=== PATIENT | male | born 1945 | race Caucasian/White ===

== ENCOUNTER 2019-01-10 12:22 | Inpatient (IN) | payer MEDICARE, OTHER ==
[~2019-01-10] VITALS: Ht 180.3 cm; Wt 83.9 kg
[~2019-01-10 12:22] MED LIST: ALBU90OI6 INH; ARFORMOTEROL; ASPI81EC PO; ATOR40TA PO; Aspirin EC81 MG PO; CLON.1 PO; CLOP75 PO; FLUSAL2505 INH; GLIP2.5ER PO; HYDACE5 PO; LISI5 PO; LOSA25 PO; LOVA40 PO; METF500 PO; METO50 PO; Omeprazole20 M1 PO; RANI150 PO; TIOT18 IH; VERAPAMIL ER120 MG PO; [UNRECOGNIZED DRUG - REMARK]
[2019-01-10 13:20] LABS: BASOPHILS ABSOLUTE AUTO 0.02 K/mm3 (0.00-0.23); BASOPHILS PERCENT AUTO 0 % (0-2); EOSINOPHILS ABSOLUTE AUTO 0.08 K/mm3 (0.00-0.68); EOSINOPHILS PERCENT AUTO 2 % (0-6); Hematocrit 40.3 % (37.0-53.0); IMMATURE GRAN ABSOLUTE AUTO 0.03 K/mm3 (0.00-0.10); IMMATURE GRAN PERCENT AUTO 1 % (0-1); LYMPHOCYTES ABSOLUTE AUTO 1.13 K/mm3 (0.84-5.20); LYMPHOCYTES PERCENT AUTO 21 % (21-46); MONOCYTES ABSOLUTE AUTO 0.55 K/mm3 (0.16-1.47); MONOCYTES PERCENT AUTO 10 % (4-13); Mean Corpuscular HGB Conc 32.3 g/dL (31.5-36.5); Mean Corpuscular Volume 96 fL (80-100); Mean Platelet Volume 11.3 fL (9.1-12.4); NEUTROPHILS ABSOLUTE AUTO 3.56 K/mm3 (1.96-9.15); NEUTROPHILS PERCENT AUTO 66 % (41-73); Platelet Count 213 K/mm3 (150-400); RDW Standard Deviation 52.9 fL (35.1-46.3); White Blood Cell Count 5.37 K/mm3 (4.00-11.30)
[2019-01-10 13:34] LABS: Albumin, Blood 3.4 g/dL (3.4-5.0); Albumin/Globulin Ratio 0.8 (0.8-1.8); Bilirubin, Total 0.3 mg/dL (0.1-1.0); Bun/Creatinine Ratio 17.1 (12.0-20.0); Calcium, Blood 9.2 mg/dL (8.5-10.1); Creatinine, Blood 1.29 mg/dL (0.60-1.20); Globulin, Blood 4.2 g/dL (2.2-4.0); Potassium, Blood 4.1 mmol/L (3.5-5.5); Total Protein, Blood 7.6 g/dL (6.4-8.2)
[2019-01-10 15:53] LABS: Source, Urine Clean Catch
[2019-01-10 15:58] LABS: Bilirubin, Urine Neg (Neg); Blood, Urine Neg (Neg); Glucose Qualitative, Urine Neg (Neg); Ketones, Urine Neg (Neg); Leukocyte Esterase, Urine Neg (Neg); Nitrite, Urine Neg (Neg); Protein, Urine 2+ (Neg); Urobilinogen, Urine NORM (Normal)
[2019-01-10 16:05] LABS: Appearance, Urine Clear (Clear); Color, Urine Yellow (P-Yellow)
[2019-01-10 16:06] LABS: Bacteria Few /hpf; Red Blood Cells, Urine 0-2 /hpf (0-2); Squamous Epithelial Cells Not Seen /hpf (Few); White Blood Cells, Urine 0-2 /hpf (0-5)
[2019-01-10] MEDS ORDERED: Afrin15 ML (16:43)
[2019-01-10] MEDS ORDERED: MONT10T PO (16:44)
[2019-01-10] MEDS ORDERED: TAMS.4ER PO (16:44)
[2019-01-10] MEDS ORDERED: OMEPRAZOLE20 MG PO (16:44)
[2019-01-10] MEDS ORDERED: Hytrin2 MG PO (16:45)
[2019-01-10] MEDS ORDERED: VERA120 PO (16:46)
[2019-01-10] MEDS ORDERED: LIRA0.6P SC (16:46)
[2019-01-10] MEDS ORDERED: Amlodipine Bes2.5 MG PO (16:46)
[2019-01-10] MEDS ORDERED: METO50 PO (16:47)
[2019-01-10] MEDS ORDERED: Amaryl4 MG PO (16:47)
[2019-01-10] MEDS ORDERED: Lipitor80 MG PO (16:47)
--- NOTE | 2019-01-10 18:44 | NUR ---
SUMMARY/NEW ER ADMIT PT IS A/O X4, PLEASANT/COOPERATIVE AFFECT. DX POSS STROKE, HE STATE NUMBNESS R SIDE OF BODY FROM HEAD TO TOES. STATE NO OTHER DEFICITS. SPEECH NORMAL. 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 VICTOR MANUEL. HE IS ABLE TO STAND & AMBULATE TO BED, GAIT STEADY. VSS. CT HEAD NEGATIVE FOR ACUTE CVA HOWEVER SHOWS OLD INFARCT, PT STATE UNAWARE OF PREVIOUS STROKE. STATE HX CARDIAC STENTS, ON PLAVIX MULT YRS.
--- NOTE | 2019-01-11 05:52 | NUR ---
ETCH OPERATOR SEMICONDUCTOR WAFERS SUMMARY NO ACUTE CHANGES THIS SHIFT. PT AAOX4 AND PLEASANT. PT DENIES ANY FURTHUR SYMPTOMS ASIDE FROM THE R SIDED NUMBNESS. PT HAS EQUAL STRENGTH IN ARMS AND LEGS. DENIES PAIN, SOB, N/V. PT HAS RESTED MOST OF THE SHIFT. VSS, WILL CONTINUE TO MONITOR.
--- NOTE | 2019-01-11 11:57 | NUR ---
Echocardiogram using 9.0ml of agitated saline contrast performed.
[2019-01-11] MEDS ORDERED: NITR.4SL SL (13:18)
[2019-01-11] MEDS ORDERED: Flonase 0.05% N16 GM (13:36)
[2019-01-11] MEDS ORDERED: TRELEGY ELLIPT1 EACH INH (13:36)
--- NOTE | 2019-01-11 19:00 | NUR ---
SUMMARY PT IS A/O X4, PLEASANT/COOPERATIVE AFFECT. MRI THIS AM CONFIRM CVA, DR REY IN TO EXPLAIN TO PT/ THIS AM. PT STATE CONTINUING R SIDED NUMBNESS HEAD TO TOE. NO OTHER DEFICITS NOTED. ORIENTAL RUG STRETCHER/DORSIFLEX STRONG/= T/O DAY. VICTOR MANUEL. SPEECH CLEAR. HE IS IND IN ROOM. DR REY INFORM PT CVA MAY BE R/T HTN, ADD LISINOPRIL, STATE POSSIBLE D/C HOME IN AM.
--- NOTE | 2019-01-12 04:51 | NUR ---
SHIFT SUMMARY PT SLEPT WELL THROUGH MUCH OF THE NIGHT. AMBULATES INDEPENDENTLY IN THE ROOM. STEADY ON HIS FEET. PT CONTINUES TO HAVE NUMBNESS TO ENTIRE RIGHT SIDE OF BODY BUT NO OTHER DEFICITS. NO COMPLAINTS OF PAIN. VITAL SIGNS STABLE. NO ACUTE CHANGES THIS EVENING. WILL CONTINUE TO MONITOR.
[2019-01-12 05:24] LABS: Bun/Creatinine Ratio 21.2 (12.0-20.0); Calcium, Blood 9.4 mg/dL (8.5-10.1); Creatinine, Blood 1.46 mg/dL (0.60-1.20); Potassium, Blood 4.3 mmol/L (3.5-5.5)
[2019-01-12] MEDS ORDERED: DEEP SEA44 ML (13:01)
--- NOTE | 2019-01-12 14:21 | NUR ---
Upon receiving an admit referral, I visit patient. 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 Patient then tells me some of the many questions he has about God and congregational and explains that these are the reasons that he doesn't believe in any one congregational. He does admit to believing that there is some sort of God or gods that is bigger than us. I listen empathically, conduct a life review and provide companionship. Patient responds well and voices appreciation for the visit.
--- NOTE | 2019-01-12 14:30 | NUR ---
DISCHARGE NOTE PT DISCHARGED VIA W/C ESCORTED BY VOLUNTEER TO POV WITH TO HOME. PT VERBALIZED UNDERSTANDING OF FOLLOWING UP WITH WHOLESALE AGRONOMIST AND PCP AND TAKING ALL MEDICATIONS PRESCRIBED. IV DISCONTINUED INTACT AND ALL BELONGINGS SENT HOME WITH PATIENT. PT ENCOURGED TO SEEK EMERGENCY MEDICAL ATTENTION IF STROKE LIKE SYMPTOMS RETURN. EDUCATIONAL MATERIALS PROVIDED.
== END 2019-01-12 14:34 | disposition home or self-care (01) | DRG 65 ==
LOC: ER 12:22 → MEDS 12:23 → ENPENDDIS 01-12 12:45 → MEDS 01-12 14:34
PROVIDERS: Physician Assistant; ADMIT Hospitalist
DX: I63.81 Other cerebral infarction due to occlusion or stenosis of small artery (principal); G81.91 Hemiplegia, unspecified affecting right dominant side; I10 Essential (primary) hypertension; E11.9 Type 2 diabetes mellitus without complications; I25.10 Atherosclerotic heart disease of native coronary artery without angina pectoris; E78.5 Hyperlipidemia, unspecified; J44.9 Chronic obstructive pulmonary disease, unspecified; Z66 Do not resuscitate; Z87.891 Personal history of nicotine dependence; Z95.5 Presence of coronary angioplasty implant and graft; Z85.118 Personal history of other malignant neoplasm of bronchus and lung; Z79.84 Long term (current) use of oral hypoglycemic drugs; Z79.02 Long term (current) use of antithrombotics/antiplatelets; Z79.51 Long term (current) use of inhaled steroids; Z79.899 Other long term (current) drug therapy
CPT/HCPCS: 36415; 70450; 70496; 70498; 70551; 80048; 80053; 81001; 82947; 85025; 93005; 93010; 93306; 94760; 97162; 97530; 99285-25; J1650; Q9967

== ENCOUNTER → 2021-12-31 | Outpatient (CLI) | payer MEDICARE, OTHER ==
[~2021-12-31] MED LIST changes: +Afrin15 ML; +Amaryl4 MG PO; +Amlodipine Bes2.5 MG PO; +DEEP SEA44 ML; +Flonase 0.05% N16 GM; +Hytrin2 MG PO; +LIRA0.6P SC; +Lipitor80 MG PO; +MONT10T PO; +NITR.4SL SL; +OMEPRAZOLE20 MG PO; +TAMS.4ER PO; +TRELEGY ELLIPT1 EACH INH; +VERA120 PO
[2021-12-31 13:54] LABS: BASOPHILS ABSOLUTE AUTO 0.01 K/mm3 (0.00-0.23); BASOPHILS PERCENT AUTO 0 % (0-2); EOSINOPHILS ABSOLUTE AUTO 0.03 K/mm3 (0.00-0.68); EOSINOPHILS PERCENT AUTO 0 % (0-6); Hematocrit 30.6 % (37.0-53.0); Hemoglobin 9.7 g/dL (13.5-17.5); IMMATURE GRAN ABSOLUTE AUTO 0.03 K/mm3 (0.00-0.10); IMMATURE GRAN PERCENT AUTO 0 % (0-1); LYMPHOCYTES ABSOLUTE AUTO 0.74 K/mm3 (0.84-5.20); LYMPHOCYTES PERCENT AUTO 11 % (21-46); MONOCYTES ABSOLUTE AUTO 0.66 K/mm3 (0.16-1.47); MONOCYTES PERCENT AUTO 10 % (4-13); Mean Corpuscular HGB 30.8 pg (26.0-34.0); Mean Corpuscular HGB Conc 31.7 g/dL (31.5-36.5); Mean Corpuscular Volume 97 fL (80-100); Mean Platelet Volume 11.8 fL (9.1-12.4); NEUTROPHILS ABSOLUTE AUTO 5.29 K/mm3 (1.96-9.15); NEUTROPHILS PERCENT AUTO 78 % (41-73); Platelet Count 223 K/mm3 (150-400); RDW Standard Deviation 57.1 fL (35.1-46.3); Red Blood Cell Count 3.15 M/mm3 (4.30-5.90); White Blood Cell Count 6.76 K/mm3 (4.00-11.30)
[2021-12-31 13:59] LABS: Bun/Creatinine Ratio 15.6 (12.0-20.0); Calcium, Blood 9.3 mg/dL (8.5-10.1); Creatinine, Blood 1.22 mg/dL (0.60-1.20); Potassium, Blood 4.6 mmol/L (3.5-5.5)
== END ==
LOC: LAB SHORT 13:44 → LAB 13:44
PROVIDERS: Family Medicine
DX: R07.9 Chest pain, unspecified (principal)
CPT/HCPCS: 80048; 84484; 85025; 85379

== ENCOUNTER 2022-03-31 11:09 | Inpatient (IN) | payer MEDICARE ==
[~2022-03-31] VITALS: Ht 180.3 cm; Wt 68.6 kg
[2022-03-31 11:45] LABS: BASOPHILS ABSOLUTE AUTO 0.01 K/mm3 (0.00-0.23); BASOPHILS PERCENT AUTO 0 % (0-2); EOSINOPHILS ABSOLUTE AUTO 0.08 K/mm3 (0.00-0.68); EOSINOPHILS PERCENT AUTO 2 % (0-6); Hematocrit 29.7 % (37.0-53.0); Hemoglobin 9.5 g/dL (13.5-17.5); IMMATURE GRAN ABSOLUTE AUTO 0.02 K/mm3 (0.00-0.10); IMMATURE GRAN PERCENT AUTO 0 % (0-1); LYMPHOCYTES ABSOLUTE AUTO 0.96 K/mm3 (0.84-5.20); LYMPHOCYTES PERCENT AUTO 18 % (21-46); MONOCYTES ABSOLUTE AUTO 0.54 K/mm3 (0.16-1.47); MONOCYTES PERCENT AUTO 10 % (4-13); Mean Corpuscular HGB 31.5 pg (26.0-34.0); Mean Corpuscular Volume 98 fL (80-100); Mean Platelet Volume 11.1 fL (9.1-12.4); NEUTROPHILS PERCENT AUTO 69 % (41-73); Platelet Count 248 K/mm3 (150-400); RDW Coefficient Variation 15.5 % (11.7-14.2); Red Blood Cell Count 3.02 M/mm3 (4.30-5.90); White Blood Cell Count 5.21 K/mm3 (4.00-11.30)
[2022-03-31 12:07] LABS: Albumin, Blood 2.7 g/dL (3.4-5.0); Albumin/Globulin Ratio 0.7 (0.8-1.8); Bilirubin, Total 0.2 mg/dL (0.1-1.0); Bun/Creatinine Ratio 15.2 (12.0-20.0); Calcium, Blood 9.3 mg/dL (8.5-10.1); Creatinine, Blood 1.38 mg/dL (0.60-1.20); Globulin, Blood 3.9 g/dL (2.2-4.0); Potassium, Blood 4.4 mmol/L (3.5-5.5); Total Protein, Blood 6.6 g/dL (6.4-8.2)
[2022-03-31] MEDS ORDERED: TERA5 PO (13:46)
[2022-03-31] MEDS ORDERED: GLIM4 PO (13:47)
[2022-03-31] MEDS ORDERED: Crestor20 MG PO (13:48)
[2022-03-31] MEDS ORDERED: TRAM50 PO (13:49)
[2022-03-31] MEDS ORDERED: Carvedilol12.5 MG PO (13:49)
--- NOTE | 2022-03-31 18:28 | NUR ---
SHIFT SUMMARY PT ARRIVED TO ICU AT 1601 FROM ER AFTER 3 DAYS OF RIGHT SIDED WEAKNESS. NEURO: A/O X4, HARD OF HEARING, LEFT HEARING AID IN PLACE. RIGHT ICE MAKER SLIGHLY WEAKER THAN LEFT, NO FACIAL DROOP, NO TONGUE DEVIATION, VISUAL LAINEZ X4 INTACT, LEG STRENGTH EQUAL. CT AND MRI COMPLETED, MD NOTIFIED. CARDIAC: SR-ST 95-105, BP ELEVATED, PRN HYDRALIZINE PO AND SCHEDULED COREG PO GIVEN, BP REMAINS ELEVATED, NICARDIPINE DRIP STARTED AT 2.5MG/HR. RESP: ROOM AIR TO MAINTAIN O2 SAT > 90%, PT HAS HISTORY OF COPD, LUNGS CLEAR/DIMINISHED BASES WITH OCCASIONAL LOOSE COUGH. RESPIRATORY THERAPY NOTIFIED OF PT REQUESTING DAILY INHAILERS AND BREATHING TREATMENT. USES ALBUTEROL NEBS TID AT HOME. GI: ADA DIET ORDERED, TRAY REQUESTED. PT SWALLOWING WITHOUT DIFFICULTY. STATES LAST BM YESTERDAY. BLOOD GLUCOSE 71, MILK GIVEN. : VOIDS USING URINAL. URINE YELLOW, NO SEDIMENT NOTED. SKIN: INTACT, BLANCHABLE REDNESS TO COCCYX. IV: PIV X1 LEFT AC, FLUSHES WELL, NICARDIPINE INFUSING. PT STATES DURING ADMIT THAT HE WISHES TO BE A FULL CODE, HE HAD PREVIOUSLY BEEN LISTED DNR. MD NOTIFIED, ORDER RECIEVED TO CHANGE CODE STATUS TO FULL. PT/INR ORDERED BY FOR NOW. NIECE AT BEDSIDE, UPDATED ON POC AND ALL QUESTIONS ANSWERED. PT'S TO VISIT IN AM.
[2022-03-31 20:34] LABS: International Normalized Ratio 1.07; Prothrombin Time Results 11.2 Sec (9.7-11.5)
--- NOTE | 2022-03-31 20:54 | NUR ---
1900 SHIFT CHANGE Received report and assumed pt care. Patient is AOX4, resting in bed and declines pain or discomfort. Wheezing audible bilateral lungs, and RT notified to administer a breathing treatment. Able to reposition in bed independently, was undressed from home clothes and dressed in gown. He had x1 episode of urine incontinence, urinal oddered and voided 350ml. Coagulation Lab panel collected and sent to lab. Will continue to monitor patient
[2022-04-01 03:42] LABS: Hematocrit 27.1 % (37.0-53.0); Mean Corpuscular HGB 31.7 pg (26.0-34.0); Mean Corpuscular HGB Conc 33.2 g/dL (31.5-36.5); Mean Corpuscular Volume 95 fL (80-100); Mean Platelet Volume 11.2 fL (9.1-12.4); Platelet Count 213 K/mm3 (150-400); RDW Coefficient Variation 15.2 % (11.7-14.2); RDW Standard Deviation 53.4 fL (35.1-46.3); Red Blood Cell Count 2.84 M/mm3 (4.30-5.90); White Blood Cell Count 4.73 K/mm3 (4.00-11.30)
[2022-04-01 04:09] LABS: Bun/Creatinine Ratio 16.5 (12.0-20.0); Calcium, Blood 9.3 mg/dL (8.5-10.1); Creatinine, Blood 1.33 mg/dL (0.60-1.20)
--- NOTE | 2022-04-01 06:41 | NUR ---
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 He is able to transfer out of bed with stand-by assist, steady gait and use of all his extremities. Continues on Nicardipine at 3.5mg/hr, gtt was turned off for 2hrs between 1am-3am after reaching parameters SBP<120. GROCERY CHECKER at shift change is 138/48 (72). Urine output over 2000ml this shift, no bowel movement.
--- NOTE | 2022-04-01 10:31 | NUR ---
Pt resting in bed with his eyes closed. Pt left undisturbed at this time. Spoke with Primary RN Natan and reviewed plan of care. Pt doing ok off pressors at this time. Pt does not appear to have any defecits from this stroke. Current defecits are baseline from previous stroke. Palliative Care will F/U at a later time for AD/POLST discussion.
--- NOTE | 2022-04-01 12:43 | NUR ---
Spiritual Care visit. Pt. is awake in bed and welcomes my visit. Pt. is pleasant but denies that he is a man of cr. Through theraputic listening and rapport establishment Pt. displays evidence of trust and engagement. Facilitated a life review. Pts. daughter in [place] is on her way and should be at bedside this afternoon. Pt. verbalizes expectation to be discharged tomorrow as well as gratitude for the spiritual care visit.
--- NOTE | 2022-04-01 16:33 | NUR ---
Pt BGL 67 treated w/ orange juice x2. Will recheck shortly. Pt has no complaints at this time.
--- NOTE | 2022-04-01 17:59 | NUR ---
Called Dr. Avila and advised pt systolic was >150 even after PRN PO meds. He advised to restart Cardene gtt until tomorrow and to readdress PO BP meds.
--- NOTE | 2022-04-01 18:57 | NUR ---
RN assumed care for pt at 1600. Ended up restarting Cardene gtt towards the end of the shift due to systolic >140; Dr. Avila is aware, placed pt back onto ICU status.
--- NOTE | 2022-04-01 19:00 | NUR ---
ASSUMPTION OF CARE PT A&OX4, PARTICIPATES IN CONVERSATION AND CARE. CURRENTLY WATCHING TV AND DENIES NEEDS. NICARDIPINE 5MG/HR INFUSING AT THIS TIME. BED IN LOW POSITION AND CALL LIGHT WITHIN REACH.
[2022-04-02 03:45] LABS: BASOPHILS ABSOLUTE AUTO 0.02 K/mm3 (0.00-0.23); BASOPHILS PERCENT AUTO 0 % (0-2); EOSINOPHILS PERCENT AUTO 2 % (0-6); Hematocrit 29.4 % (37.0-53.0); Hemoglobin 9.6 g/dL (13.5-17.5); IMMATURE GRAN ABSOLUTE AUTO 0.01 K/mm3 (0.00-0.10); IMMATURE GRAN PERCENT AUTO 0 % (0-1); LYMPHOCYTES ABSOLUTE AUTO 1.27 K/mm3 (0.84-5.20); LYMPHOCYTES PERCENT AUTO 21 % (21-46); MONOCYTES ABSOLUTE AUTO 0.67 K/mm3 (0.16-1.47); MONOCYTES PERCENT AUTO 11 % (4-13); Mean Corpuscular HGB 31.6 pg (26.0-34.0); Mean Corpuscular HGB Conc 32.7 g/dL (31.5-36.5); Mean Corpuscular Volume 97 fL (80-100); Mean Platelet Volume 11.5 fL (9.1-12.4); NEUTROPHILS ABSOLUTE AUTO 3.97 K/mm3 (1.96-9.15); NEUTROPHILS PERCENT AUTO 66 % (41-73); Platelet Count 221 K/mm3 (150-400); RDW Coefficient Variation 15.3 % (11.7-14.2); RDW Standard Deviation 53.4 fL (35.1-46.3); Red Blood Cell Count 3.04 M/mm3 (4.30-5.90); White Blood Cell Count 6.04 K/mm3 (4.00-11.30)
[2022-04-02 04:03] LABS: Bun/Creatinine Ratio 25.8 (12.0-20.0); Calcium, Blood 9.3 mg/dL (8.5-10.1); Creatinine, Blood 1.24 mg/dL (0.60-1.20); Potassium, Blood 4.7 mmol/L (3.5-5.5)
--- NOTE | 2022-04-02 06:19 | NUR ---
SHIFT SUMMARY PT ARRIVED FROM ED, HYPOTHERMIC, TACHYCARDIC, AND HYPOTENSIVE, MAXED ON LEVO. ADDED VASOPRESSIN WITHOUT IMPROVEMENT IN BP. HOSPITALIST NOTIFIED, ERI ADDED. MAPS 60-62 FOR MAJORITY OF SHIFT. CURRENTLY, LEVO @ 30MCG/MIN; VASO @ 0.04U/MIN; ERI @ 300MCG/MIN. LAST BP 113/44 MAP 65. PT REMAINS MINIMALLY RESPONSIVE; NONVERBAL. UNABLE TO FOLLOW COMMANDS. OLIGURIC. WARMED WITH CARLEY HUGGER OVERNIGHT; CURRENTLY NORMOTHERMIC WITH CARLEY HUGGER STILL IN USE.
--- NOTE | 2022-04-02 06:35 | NUR ---
SHIFT SUMMARY PT A/O X4. NEURO ASSESSMENT RETURNED TO BASELINE. CARDENE WEANED OFF FOR SHORT PERIOD WHEN SLEEPING, BUT REQUIRED RESTART. CURRENTLY AT 7.5MCG/MIN.
--- NOTE | 2022-04-02 07:15 | NUR ---
Assumed care of pt at 0700. Report received from Marylin SMILEY. Nicardipine at 7.5 mg/hr. BP within parameter. Pt A&O x 4. Answers questions, follows commands, verbalizes needs.
[2022-04-02 08:17] LABS: CHOL/HDL RATIO 3.4; Cholesterol 122 mg/dL (50-200); HDL Cholesterol 36 mg/dL (>39); Low Density Lipoprotein Chol 72 mg/dL (0-110); Triglycerides 70 mg/dL (30-160); Very Low Density Lipoprot Chol 14 mg/dL (6-32)
--- NOTE | 2022-04-02 10:30 | NUR ---
Dr Crump to see pt. Discussed that pt is off nicardipine drip. Provider states plan for continued monitoring and pt may transfer to medical floor later this afternoon.
--- NOTE | 2022-04-02 12:42 | NUR ---
Pt resting in bed and is A&OX4. Pt denies pain, anxiety, and nausea. Mild conversational dyspnea noted. Offered therapeutic listening as Pt reports living at home with his spouse and other family members. He reports having 2 adult daughters, and 2 adult sons. He reports family is supportive. Pt reports ability to get around the house and states he does most of the shopping. 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 Engaged in gentle discussion regarding code status wishes. Educated on life sustaining treatments including risk factors and implications of CPR. Pt reports wishes are DNR. Spoke with Dr Crump and discussed case. Placed order for DNR per V/O from Dr Crump. Palliative Care will remain available
--- NOTE | 2022-04-02 17:23 | NUR ---
SUMMARY Pt has been transferred to room 308 at 1600. Pt transferred by bed, accompanied by ADILSON Olivas. Chart, medications, belongings transferred with patient. Assessment at time of ICU departure is as follows. Neuro/Psych: A&O x 4. Answers questions, follows commands, verbalizes needs. Forgetful with education provided but is receptive with repetition and reinforcement. Pt updates his family/friends using personal cellphone. Musc/ADLs: Worked with PT/OT today. Tolerated activity well. Performs all in-bed ADLs independently. Refused shower or bedbath today. Resp: SpO2 90% or greater RA. Cardiac: SR per monitor. BP stable. Nicardipine off this morning. GI: No BM this shift. Excellent appetite. Tolerating prescribed diet well, without signs of aspiration. : Good urine output. Voids independently into urinal. Skin: Unchanged from inital assessment.
--- NOTE | 2022-04-02 17:39 | NUR ---
Received report from BALJIT Valdez. Pt being transfer from ICU. AXOX3-4. Pt ambulates with 1 assist. Received pt with all belongings. Pt able to walk with standby assist. Pt made aware on how to use call light and ask for assistance.
--- NOTE | 2022-04-02 19:10 | NUR ---
Report handoff given to nurse.
--- NOTE | 2022-04-03 03:57 | NUR ---
SHIFT UNREMARKABLE. PATIENT HAS DENIED ANY PAIN OVER COURSE OF SHIFT AND HAS SLEPT THROUGH MOST OF SHIFT. PATIENT COMPLAINED TWICE OF "STUFFY NOSE" AND REQUESTED SOMETHING TO ALLEVIATE DISCOMFORT. HOSPITALIST ORDERED FLONASE FOR TREATMENT. SHIFT OTHERWISE NOT NOTEWORTHY. CALL LIGHT LEFT WITHIN REACH.
[2022-04-03 04:51] LABS: Hematocrit 30.3 % (37.0-53.0); Hemoglobin 9.6 g/dL (13.5-17.5); Mean Corpuscular HGB 31.4 pg (26.0-34.0); Mean Corpuscular HGB Conc 31.7 g/dL (31.5-36.5); Mean Corpuscular Volume 99 fL (80-100); Mean Platelet Volume 10.9 fL (9.1-12.4); Platelet Count 216 K/mm3 (150-400); RDW Coefficient Variation 15.7 % (11.7-14.2); RDW Standard Deviation 55.9 fL (35.1-46.3); Red Blood Cell Count 3.06 M/mm3 (4.30-5.90)
[2022-04-03 05:11] LABS: Albumin, Blood 2.4 g/dL (3.4-5.0); Anion Gap 6 mmol/L (6-16); Blood Urea Nitrogen 40 mg/dL (8-24); Bun/Creatinine Ratio 29.9 (12.0-20.0); CO2, Blood 28 mmol/L (21-32); Calcium, Blood 9.3 mg/dL (8.5-10.1); Chloride, Blood 104 mmol/L (98-108); Creatinine, Blood 1.34 mg/dL (0.60-1.20); Glomerular Filtration Rate 55 (60-); Glucose, Blood 145 mg/dL (70-99); Phosphorus, Blood 3.6 mg/dL (2.5-4.9); Potassium, Blood 4.5 mmol/L (3.5-5.5); Sodium, Blood 138 mmol/L (136-145)
--- NOTE | 2022-04-03 17:57 | NUR ---
Received report from ongoing nurse. Pt axox4. VSS. Will continue to monitor patient.
--- NOTE | 2022-04-03 19:11 | NUR ---
Report given to oncoming nurse.
--- NOTE | 2022-04-04 04:44 | NUR ---
SHIFT SUMMARY; NO ACUTE CHANGES OVERNIGHT. THE PT IS AXO X4 AND A STANBY ASSIST. THE PT RESTED IN BED T/O THE NIGHT AND USED THE BEDSIDE URINAL. PT IS EAGER TO GO HOME. PT KNOWS THE PLAN IS FOR B/P TO BE MORE NORMOTENSIVE, HOWEVER, PT IS HAVING A HARD TIME WAITING TO MEET THIS GOAL IN ORDER TO D/C. CURRENTLY THE PT IS RESTING IN BED WITH THE BED IN THE LOWEST POSITION AND THE CALL LIGHT AT BEDSIDE.
[2022-04-04] MEDS ORDERED: AMLO5 PO (09:59)
[2022-04-04] MEDS ORDERED: Prinivil10 MG PO (10:00)
[2022-04-04] MEDS ORDERED: FLUTICASONE-SA1 EAC2 INH (10:00)
[2022-04-04] MEDS ORDERED: SPIRIVA RESPIMAT4 G3 INH (10:01)
--- NOTE | 2022-04-04 10:53 | NUR ---
Received report from ongoing nurse. Pt axox3. No events over night. Received discharge instructions for patient. Iv removed and telemetry taken off. Daughter at bedside to take pt home.
== END 2022-04-04 11:00 | disposition home or self-care (01) | DRG 65 ==
LOC: ER 11:09 → ICUE 14:35 → ICUW 14:35 → ICUE 16:09 → MEDS 04-02 16:01
PROVIDERS: Internal Medicine; Nurse Practitioner Acute Care; Physician Assistant; Student in an Organized Health Care Education/Training Program; ADMIT Internal Medicine
DX: I63.81 Other cerebral infarction due to occlusion or stenosis of small artery (principal); I69.351 Hemiplegia and hemiparesis following cerebral infarction affecting right dominant side; I65.22 Occlusion and stenosis of left carotid artery; I25.10 Atherosclerotic heart disease of native coronary artery without angina pectoris; J44.9 Chronic obstructive pulmonary disease, unspecified; N18.30 Chronic kidney disease, stage 3 unspecified; Z66 Do not resuscitate; E11.22 Type 2 diabetes mellitus with diabetic chronic kidney disease; D63.1 Anemia in chronic kidney disease; K21.9 Gastro-esophageal reflux disease without esophagitis; E11.59 Type 2 diabetes mellitus with other circulatory complications; I12.9 Hypertensive chronic kidney disease with stage 1 through stage 4 chronic kidney disease, or unspecified chronic kidney disease; E78.00 Pure hypercholesterolemia, unspecified; N40.0 Benign prostatic hyperplasia without lower urinary tract symptoms; R47.81 Slurred speech; Z85.118 Personal history of other malignant neoplasm of bronchus and lung; Z92.21 Personal history of antineoplastic chemotherapy; Z99.81 Dependence on supplemental oxygen; Z95.5 Presence of coronary angioplasty implant and graft; Z92.3 Personal history of irradiation; Z79.899 Other long term (current) drug therapy; Z79.891 Long term (current) use of opiate analgesic; Z86.61 Personal history of infections of the central nervous system; Z98.890 Other specified postprocedural states; Z87.891 Personal history of nicotine dependence
CPT/HCPCS: 36415; 70450; 70551; 80048; 80053; 80061; 80069; 82947; 83036; 85025; 85027; 85610; 85730; 92526; 92610; 93005; 93010; 93306; 93880; 94640; 94664; 94760; 94762; 96374; 97112; 97116; 97161; 97165; 97530; 99285-25; A9270; J7050

== ENCOUNTER 2023-06-27 15:55 | Inpatient (IN) | payer MEDICARE ==
[~2023-06-27] VITALS: Ht 180.3 cm; Wt 62.3 kg
[~2023-06-27 15:55] MED LIST changes: +ALBU90OI INH; +AMLO5 PO; +CARV25 PO; +Crestor20 MG PO; +FLUTICASONE-SA1 EAC2 INH; +GLIM4 PO; +OMEP20ER PO; +OXYM.05NI; +Prinivil10 MG PO; +SPIRIVA RESPIMAT4 G3 INH; +TERA5 PO; +TRAM50 PO; +VERAPAMIL ER120 M1 PO
[2023-06-27 16:18] LABS: BASOPHILS ABSOLUTE AUTO 0.01 K/mm3 (0.00-0.23); BASOPHILS PERCENT AUTO 0 % (0-2); EOSINOPHILS ABSOLUTE AUTO 0.01 K/mm3 (0.00-0.68); EOSINOPHILS PERCENT AUTO 0 % (0-6); Hematocrit 22.8 % (37.0-53.0); IMMATURE GRAN ABSOLUTE AUTO 0.03 K/mm3 (0.00-0.10); IMMATURE GRAN PERCENT AUTO 1 % (0-1); LYMPHOCYTES PERCENT AUTO 8 % (21-46); MONOCYTES ABSOLUTE AUTO 0.53 K/mm3 (0.16-1.47); MONOCYTES PERCENT AUTO 9 % (4-13); Mean Corpuscular HGB 31.3 pg (26.0-34.0); Mean Corpuscular HGB Conc 30.7 g/dL (31.5-36.5); Mean Corpuscular Volume 102 fL (80-100); Mean Platelet Volume 10.9 fL (9.1-12.4); NEUTROPHILS ABSOLUTE AUTO 5.07 K/mm3 (1.96-9.15); NEUTROPHILS PERCENT AUTO 82 % (41-73); Platelet Count 207 K/mm3 (150-400); RDW Coefficient Variation 15.5 % (11.7-14.2); RDW Standard Deviation 57.5 fL (35.1-46.3); Red Blood Cell Count 2.24 M/mm3 (4.30-5.90); White Blood Cell Count 6.15 K/mm3 (4.00-11.30)
[2023-06-27 16:40] LABS: Albumin, Blood 2.3 g/dL (3.4-5.0); Albumin/Globulin Ratio 0.6 (0.8-1.8); Bilirubin, Total 1.1 mg/dL (0.1-1.0); Bun/Creatinine Ratio 13.7 (12.0-20.0); Calcium, Blood 8.6 mg/dL (8.5-10.1); Creatinine, Blood 1.24 mg/dL (0.60-1.20); Globulin, Blood 3.9 g/dL (2.2-4.0); Potassium, Blood 4.4 mmol/L (3.5-5.5); Total Protein, Blood 6.2 g/dL (6.4-8.2)
[2023-06-27 17:31] LABS: Influenza A, PCR NEGATIVE (NEGATIVE); Influenza B, PCR NEGATIVE (NEGATIVE); Resp Syncytial Virus, PCR NEGATIVE (NEGATIVE); SARS-Cov-2 (COVID-19) PCR, MMC POSITIVE (NEGATIVE)
[2023-06-27] MEDS ORDERED: Acetaminophen 325 MG TABLET PO ONE (17:45)
[2023-06-27] MEDS ORDERED: Oxymetazoline 0.05% Nasal Relief Spray 15mL BTL ONE (18:10)
[2023-06-27] MEDS ORDERED: TraMADol HCl 50 MG Tab PO PRN (19:35)
[2023-06-27] MEDS ORDERED: Ipratropium/Albuterol SulF 2.5-0.5MG/3 ML Amp INH SCH (19:40)
[2023-06-27] MEDS ORDERED: Remdesivir (EUA) 200 MG in NS 250 ML IV ONE (19:45)
[2023-06-27] MEDS ORDERED: Magnesium Hydroxide Conc 10 ML UDC PO PRN (19:50)
[2023-06-27] MEDS ORDERED: Acetaminophen 325 MG TABLET PO PRN (19:50)
[2023-06-27] MEDS ORDERED: CefTRIAXone Sodium 1,000 MG in NS 100 ML IV SCH (20:00)
[2023-06-27] MEDS ORDERED: Dexamethasone 2 MG Tab PO SCH (20:00)
[2023-06-27] MEDS ORDERED: Azithromycin 500 MG in NS 250 ML IV SCH (20:00)
[2023-06-27] MEDS ORDERED: Oxymetazoline 0.05% Nasal Relief Spray 15mL BTL PRN (20:10)
[2023-06-27] MEDS ORDERED: Montelukast Sodium 10 MG Tab PO SCH (21:00)
[2023-06-27] MEDS ORDERED: Insulin Regular 100 Unit/ML 1ML Dose SC SCH (21:00)
[2023-06-27] MEDS ORDERED: Enoxaparin 60 MG/0.6 ML SYR SC SCH (21:00)
[2023-06-27] MEDS ORDERED: Prazosin HCL 5 MG Cap PO SCH (21:00)
[2023-06-27] MEDS ORDERED: Lactobacil 2-S.Thermo-Bifido 1 1 Cap PO SCH (21:00)
[2023-06-27 21:15] VITALS: BP 156/69
[2023-06-27] MEDS ORDERED: Albuterol 2.5 MG/3 ML VIAL INH PRN (22:40)
[2023-06-28] VITALS (10 sets, daily range): BP systolic 136–192; BP diastolic 46–81
[2023-06-28] MEDS ORDERED: MethylPREDNISolone Sod Succ 40 MG VIAL IV SCH
[2023-06-28 04:47] LABS: BASOPHILS ABSOLUTE AUTO 0.01 K/mm3 (0.00-0.23); BASOPHILS PERCENT AUTO 0 % (0-2); EOSINOPHILS PERCENT AUTO 0 % (0-6); Hematocrit 21.8 % (37.0-53.0); Hemoglobin 6.7 g/dL (13.5-17.5); IMMATURE GRAN ABSOLUTE AUTO 0.03 K/mm3 (0.00-0.10); IMMATURE GRAN PERCENT AUTO 1 % (0-1); LYMPHOCYTES ABSOLUTE AUTO 0.38 K/mm3 (0.84-5.20); LYMPHOCYTES PERCENT AUTO 7 % (21-46); MONOCYTES ABSOLUTE AUTO 0.26 K/mm3 (0.16-1.47); MONOCYTES PERCENT AUTO 5 % (4-13); Mean Corpuscular HGB 31.5 pg (26.0-34.0); Mean Corpuscular HGB Conc 30.7 g/dL (31.5-36.5); Mean Corpuscular Volume 102 fL (80-100); Mean Platelet Volume 11.1 fL (9.1-12.4); NEUTROPHILS ABSOLUTE AUTO 4.52 K/mm3 (1.96-9.15); NEUTROPHILS PERCENT AUTO 87 % (41-73); Platelet Count 178 K/mm3 (150-400); RDW Coefficient Variation 15.4 % (11.7-14.2); RDW Standard Deviation 57.2 fL (35.1-46.3); Red Blood Cell Count 2.13 M/mm3 (4.30-5.90)
--- NOTE | 2023-06-28 05:52 | NUR ---
2109 Pt arrived on unit via gurney from ED with RN in attendance. Pt able to transfer self into bed with minimal assistance though quite [place]. Full assessment and assessment intervew obtained, please see for full details. Oriented to room and unit per unit standards. Reviewed shift plan of care [facility] patient, all questions answered. Pt able to sleep significant stretches this shift, reporting it has been the first decent sleep he has had in days. Pt able to self prone to decrease WOB and SOB. No further complaints or concerns at this time, will continue to monitor.
[2023-06-28] MEDS ORDERED: Pantoprazole Sodium 40 MG Tab PO SCH (06:00)
[2023-06-28 06:08] LABS: Bun/Creatinine Ratio 14.4 (12.0-20.0); Calcium, Blood 8.8 mg/dL (8.5-10.1); Creatinine, Blood 1.32 mg/dL (0.60-1.20); Potassium, Blood 4.6 mmol/L (3.5-5.5)
[2023-06-28] MEDS ORDERED: Albuterol HFA200 ACT/6.7 GM INH INH SCH (07:20)
[2023-06-28] MEDS ORDERED: Insulin Regular 100 UNIT/ML 10ML Vial SC SCH (07:30)
[2023-06-28] MEDS ORDERED: Carvedilol 25 MG Tab PO SCH (08:00)
[2023-06-28] MEDS ORDERED: Clopidogrel Bisulfate 75 MG Tab PO SCH (09:00)
[2023-06-28] MEDS ORDERED: Glimepiride 1 MG Tablet PO SCH (09:00)
[2023-06-28] MEDS ORDERED: Atorvastatin 10 MG Tab PO SCH (09:00)
[2023-06-28] MEDS ORDERED: Lisinopril 10 MG Tab PO SCH (09:00)
[2023-06-28] MEDS ORDERED: Mometasone/Formoterol MDI 200/5 mcg 13 GM INH SCH (09:10)
[2023-06-28] MEDS ORDERED: Tiotropium Bromide 2.5 MCG/ACT MIST INHAL (10 ACT/4 GM) INH SCH (09:10)
[2023-06-28] MEDS ORDERED: TRELEGY ELLIPTA INH SCH (11:55)
[2023-06-28] MEDS ORDERED: Remdesivir (EUA) 100 MG in NS 250 ML IV SCH (12:00)
[2023-06-28] MEDS ORDERED: NS 500 ML IV SCH (12:05)
[2023-06-28] MEDS ORDERED: Piperacillin/Tazobactam Sod 3.375 GM in NS 100 ML IV ONE (17:25)
[2023-06-28] MEDS ORDERED: NS 0 ML IV ONE (17:32)
--- NOTE | 2023-06-28 18:05 | NUR ---
ASSUMED CARE AT 0700. PT IS LIMITED CODE, INTUBATION AUTHORIZED, NO CPR. PT A/O X4. COOPERATIVE, MAKES NEEDS KNOWN, COOPERATES WITH CARE. NORMAL SINUS RHYTHM, HR 80'S. LUNG SOUNDS DIMINISHED IN BASES, COARSE IN UPPER LOBES. PT BECOMES DYSPNEIC WITH ANY AMOUNT OF ACTIVITY. MINIMAL PEDAL EDEMA, PULSES STRONG. PT DID NOT REPORT ANY PAIN, CHEST PAIN, CHEST PRESSURE DURING SHIFT. PT USES URINAL AT BEDSIDE AND IS A STANDBY ASSIST, BUT IS ABLE TO REPOSITION HIMSELF. DUE TO LOW HGB AND HCT, PT RECEIVED 1 UNIT OF BLOOD THIS AFTERNOON AND TOLERATED THE TRANSFUSION WELL WITH NO REACTIONS OR ADVERSE OUTCOMES. PT TO BE NPO AT 0000 AND ENOXAPARIN TO BE HELD FOR POTENTIAL BRONCHOSCOPY AND THORACENTESIS TOMORROW. PALLIATIVE CARE CONSULT IN PLACE.
[2023-06-28] MEDS ORDERED: NS 250 ML IV PRN (20:45)
[2023-06-28] MEDS ORDERED: Lisinopril 10 MG Tab PO ONE (21:00)
--- NOTE | 2023-06-28 22:25 | NUR ---
UPDATE: PT SYSTOLIC BP IN 170s. NADIA NOTIFIED OF ELEVATED BP. ORDERS GIVEN FOR ONE TIME DOSE OF LISINOPRIL. SEE EMAR FOR ADMINISTRATION DETAILS.
[2023-06-29] VITALS (7 sets, daily range): BP systolic 138–180; BP diastolic 53–91
[2023-06-29] MEDS ORDERED: Piperacillin/Tazobactam Sod 4.5 GM in NS 100 ML IV SCH (02:00)
[2023-06-29 04:34] LABS: BASOPHILS PERCENT AUTO 0 % (0-2); EOSINOPHILS PERCENT AUTO 0 % (0-6); IMMATURE GRAN ABSOLUTE AUTO 0.02 K/mm3 (0.00-0.10); IMMATURE GRAN PERCENT AUTO 0 % (0-1); LYMPHOCYTES ABSOLUTE AUTO 0.53 K/mm3 (0.84-5.20); LYMPHOCYTES PERCENT AUTO 11 % (21-46); MONOCYTES ABSOLUTE AUTO 0.45 K/mm3 (0.16-1.47); MONOCYTES PERCENT AUTO 10 % (4-13); Mean Corpuscular HGB 30.9 pg (26.0-34.0); Mean Platelet Volume 10.9 fL (9.1-12.4); NEUTROPHILS ABSOLUTE AUTO 3.67 K/mm3 (1.96-9.15); NEUTROPHILS PERCENT AUTO 79 % (41-73); Platelet Count 169 K/mm3 (150-400); RDW Coefficient Variation 17.2 % (11.7-14.2); Red Blood Cell Count 2.59 M/mm3 (4.30-5.90); White Blood Cell Count 4.67 K/mm3 (4.00-11.30)
[2023-06-29 04:39] LABS: Mean Corpuscular Volume 97 fL (80-100)
[2023-06-29 05:00] LABS: Albumin, Blood 2.2 g/dL (3.4-5.0); Albumin/Globulin Ratio 0.6 (0.8-1.8); Bilirubin, Total 0.4 mg/dL (0.1-1.0); Bun/Creatinine Ratio 22.7 (12.0-20.0); Calcium, Blood 9.2 mg/dL (8.5-10.1); Creatinine, Blood 1.32 mg/dL (0.60-1.20); Globulin, Blood 3.8 g/dL (2.2-4.0); Potassium, Blood 4.3 mmol/L (3.5-5.5)
--- NOTE | 2023-06-29 05:23 | NUR ---
SHIFT SUMMARY: PT A/OX4 AND PLEASANT WITH CARE T/O SHIFT. PT CONTINUES ON 3L NC W/SPO2 >93, WITH NO WORSENING COMPLAINTS OF SOB. PT DENIES CHEST PAIN OR PRESSURE. TELE: NSR 60-80s. SYSTOLIC BP ELEVATED 140-170s. PT VOIDING CLEAR/YELLOW URINE W/ URINAL AT BEDSIDE. PT ABLE TO REPOSITION SELF, BUT FAVORS RIGHT SIDE. NPO @ 0000 FOR THORACENTESIS TODAY, WELL POSSIBLE BRONCH. PT CALLS APPROPRIATELY FOR ASSISTANCE. CALL LIGHT IN REACH AND BED IN LOWEST POSITION. WILL REPORT TO DAYSHIFT RN.
[2023-06-29] MEDS ORDERED: Enoxaparin 40 MG/0.4 ML SYR SC SCH (09:00)
[2023-06-29] MEDS ORDERED: Lisinopril 20 MG Tab PO SCH (09:00)
[2023-06-29 11:22] LABS: Automated BF RBC Count 0.002 M/mm3 (0-0); Automated BF WBC Count 0.319 K/mm3 (0-999)
[2023-06-29 11:25] LABS: Body Fluid WBC Count 319 /mm3 (0-999); RBC Count, Body Fluid 2000 /mm3 (0-0)
[2023-06-29 11:59] LABS: Lactate Dehydrogenase, Body Fl 112 U/L; Protein, Body Fluid 2.2 g/dL
[2023-06-29 12:21] LABS: Total Cell Count, Body Fluid 100
[2023-06-29 12:34] LABS: Appearance, Body Fluid Clear (Clear); Color, Body Fluid Yellow (None-Yellow)
[2023-06-29 13:08] LABS: FERRITIN 337 ng/mL (30-400)
--- NOTE | 2023-06-29 17:33 | NUR ---
SHIFT SUMMARY PT A/OX4 AND COOPERATIVE WITH CARE. MAKES NEEDS KNOWN AND USES CALL LIGHT APPROPRIATELY. NORMAL SINUS RHYTHM WITH HTN IN THE AFTERNOON RANGING FROM SYSTOLIC 140'S-180'S. PT STILL HAS MINIMAL EDEMA IN BILATERAL EXTREMITIES. DIMINISHED BREATH SOUNDS THROUGHOUT. PT WENT FOR THORACENTISIS THIS MORNING, 1500ML OF FLUID REMOVED. PT APPEARS TO HAVE LESS WORK OF BREATHING POST PROCEDURE, BUT DID REQUEST A BREATHING TX THIS AFTERNOON AFTER REPORTING THAT HE FELT WHEEZY. PT HAS AT HOME ALBUTEROL INHALER AT BEDSIDE FOR PRN USE. WILL CONTINUE TO MONITOR UNTIL CHANGE OF SHIFT.
[2023-06-29] MEDS ORDERED: HydrALAZINE HCl 20 MG / ML 1ML Vial IV PRN (22:05)
[2023-06-29 23:08] LABS: FERRITIN 419 ng/mL (30-400); IRON BIND.CAP.(TIBC) 169 ug/dL (250-450); IRON SATURATION 11 % (15-55); IRON, SERUM 18 ug/dL (38-169); UIBC 151 ug/dL (111-343)
[2023-06-29 23:08] LABS: IRON BIND.CAP.(TIBC) 166 ug/dL (250-450); IRON SATURATION 7 % (15-55); IRON, SERUM 12 ug/dL (38-169); UIBC 154 ug/dL (111-343)
[2023-06-30 04:11] VITALS: BP 155/55
[2023-06-30 04:29] LABS: BASOPHILS ABSOLUTE AUTO 0.01 K/mm3 (0.00-0.23); BASOPHILS PERCENT AUTO 0 % (0-2); EOSINOPHILS ABSOLUTE AUTO 0.02 K/mm3 (0.00-0.68); EOSINOPHILS PERCENT AUTO 0 % (0-6); Hematocrit 25.3 % (37.0-53.0); Hemoglobin 7.9 g/dL (13.5-17.5); IMMATURE GRAN ABSOLUTE AUTO 0.03 K/mm3 (0.00-0.10); IMMATURE GRAN PERCENT AUTO 0 % (0-1); LYMPHOCYTES ABSOLUTE AUTO 0.81 K/mm3 (0.84-5.20); LYMPHOCYTES PERCENT AUTO 10 % (21-46); MONOCYTES ABSOLUTE AUTO 0.62 K/mm3 (0.16-1.47); MONOCYTES PERCENT AUTO 8 % (4-13); Mean Corpuscular HGB 30.2 pg (26.0-34.0); Mean Corpuscular HGB Conc 31.2 g/dL (31.5-36.5); Mean Corpuscular Volume 97 fL (80-100); Mean Platelet Volume 11.5 fL (9.1-12.4); NEUTROPHILS PERCENT AUTO 82 % (41-73); Platelet Count 190 K/mm3 (150-400); RDW Coefficient Variation 16.8 % (11.7-14.2); RDW Standard Deviation 59.4 fL (35.1-46.3); Red Blood Cell Count 2.62 M/mm3 (4.30-5.90); White Blood Cell Count 8.19 K/mm3 (4.00-11.30)
--- NOTE | 2023-06-30 04:50 | NUR ---
SHIFT SUMMARY A/Ox4 AND COOPERATIVE WITH CARE. ANSWERS QUESTIONS APPROPRIATELY AND ABLE TO MAKE HIS NEEDS KNOWN. VERY HARD OF HEARING. NO ACUTE EVENTS OVERNIGHT. CARDIAC, REMAINS IN SR 60-80'S WITH NO REPORTS OF CP OR PRESSURE. SBP ELEVATED IN THE 160'S. PRN HYDRALAZINE GIVEN WITH GOOD EFFECT PER EMAR. RESPIRATORY, MAINTAINS SPO2 >90% ON 1-2.5L NC. CONTINUES TO ENDORSE SOB WITH MINIMAL EXERTION, BUT DOSE REPORT IMPROVEMENT TO WORK OF BREATHING AFTER THORACENTESIS 06/29/23. GI/, ABLE TO INDEPENDENTLY USE URINAL AT BEDSIDE WITHOUT STAFF ASSISTANCE. 1 ASSIST TO BSC. PAIN WELL MANAGED WITH PRN PAIN MEDICATIONS. NO NEW ORDERS AT THIS TIME, WILL REPORT TO ONCOMING RN. MATTHEW SÁNCHEZ OF THIS NOTE.
[2023-06-30 04:56] LABS: Bun/Creatinine Ratio 22.4 (12.0-20.0); Calcium, Blood 9.2 mg/dL (8.5-10.1); Creatinine, Blood 1.74 mg/dL (0.60-1.20); Potassium, Blood 4.1 mmol/L (3.5-5.5)
[2023-06-30 07:49] VITALS: BP 166/65
--- NOTE | 2023-06-30 08:50 | NUR ---
ASSUMED CARE: This RN recieved report from Mervat. Patient is sitting up in bed eating breakfast. He denies other needs at this time. Call light in reach.
[2023-06-30 15:49] VITALS: BP 117/93
--- NOTE | 2023-06-30 18:09 | NUR ---
SUMMARY: Patient has been alert and oriented x4, T/O the day he has been [place]. He has not had any C/O pain. HRR, rate in the 70s, BP has been stable. LS DIM with insp/exp wheezing, patient has been low 90s on 1l via NC. He has been C/O difficulty breathing when trying to lie down. BT+, he had a bowel movement today. PPP. He has been sitting at the edge of the bed for the majority of the shift and he has been able to get to the bedside commode. No acute changes this shift. Will report to oncoming RN.
[2023-06-30] MEDS ORDERED: Albuterol HFA200 ACT/6.7 GM INH INH PRN (23:20)
[2023-07-01 04:53] VITALS: BP 159/62
--- NOTE | 2023-07-01 06:24 | NUR ---
SHIFT SUMMARY: PT TX FROM PCU LAST NIGHT. PT IS A/O X 4, STANDBY ASSIST, PLEASANT AND COOPERATIVE. PT ON 2 LPM VIA NC THROUGH THE NIGHT. HAD C/O STUFFY NOSE WHICH AFRIN WAS EFFECTIVE IN TREATING. PT BLOOD SUGARS MANAGED. VSS. PT REPORTS OCCASIONAL PRODUCTIVE COUGH. NO OTHER COMPLAINTS.
[2023-07-01 06:30] LABS: BASOPHILS ABSOLUTE AUTO 0.01 K/mm3 (0.00-0.23); BASOPHILS PERCENT AUTO 0 % (0-2); EOSINOPHILS ABSOLUTE AUTO 0.11 K/mm3 (0.00-0.68); EOSINOPHILS PERCENT AUTO 2 % (0-6); Hematocrit 26.8 % (37.0-53.0); Hemoglobin 8.6 g/dL (13.5-17.5); IMMATURE GRAN ABSOLUTE AUTO 0.03 K/mm3 (0.00-0.10); IMMATURE GRAN PERCENT AUTO 0 % (0-1); LYMPHOCYTES ABSOLUTE AUTO 0.78 K/mm3 (0.84-5.20); LYMPHOCYTES PERCENT AUTO 12 % (21-46); MONOCYTES ABSOLUTE AUTO 0.65 K/mm3 (0.16-1.47); MONOCYTES PERCENT AUTO 10 % (4-13); Mean Corpuscular HGB 30.8 pg (26.0-34.0); Mean Corpuscular HGB Conc 32.1 g/dL (31.5-36.5); Mean Corpuscular Volume 96 fL (80-100); Mean Platelet Volume 12.1 fL (9.1-12.4); NEUTROPHILS ABSOLUTE AUTO 5.13 K/mm3 (1.96-9.15); NEUTROPHILS PERCENT AUTO 77 % (41-73); Platelet Count 181 K/mm3 (150-400); RDW Coefficient Variation 16.4 % (11.7-14.2); RDW Standard Deviation 58.4 fL (35.1-46.3); Red Blood Cell Count 2.79 M/mm3 (4.30-5.90); White Blood Cell Count 6.71 K/mm3 (4.00-11.30)
[2023-07-01 07:10] LABS: Albumin, Blood 2.3 g/dL (3.4-5.0); Albumin/Globulin Ratio 0.6 (0.8-1.8); Bilirubin, Total 0.3 mg/dL (0.1-1.0); Bun/Creatinine Ratio 25.7 (12.0-20.0); Calcium, Blood 9.2 mg/dL (8.5-10.1); Creatinine, Blood 1.48 mg/dL (0.60-1.20); Globulin, Blood 3.6 g/dL (2.2-4.0); Potassium, Blood 3.9 mmol/L (3.5-5.5); Total Protein, Blood 5.9 g/dL (6.4-8.2)
[2023-07-01 08:16] VITALS: BP 155/61
--- NOTE | 2023-07-01 09:00 | NUR ---
pt laying in bed asking for coffee, and reports not enough breakfast, a/ox4, but profoundly [place], reports doesn't have tank stave assembler for hearing aides, denies pain and states feeling better, reports breathing ok, lungs have insp wheezing, currently on 3 liters 02 via n/c, no cough noted, hrr, tele in place running sr per monitor, see strip, no edema noted, ppp+1, cap refill<3sec, vs stable, afebrile, piv to r hand, site is clear and patent, btx4, abd flat soft nontender, voids without diff, skin c/w/d, maew, siomara, call light in reach.
[2023-07-01 15:07] VITALS: BP 161/76
[2023-07-01] MEDS ORDERED: Piperacillin/Tazobactam Sod 2.25 GM in NS 50 ML IV SCH (18:00)
--- NOTE | 2023-07-01 18:44 | NUR ---
ZOSYN DUE AT 1800 WAS SET AT PCU RATE OVER 4 HRS. CALLED PHA. THEY OKAYED RUN AT STD 1 HR. DONE. 10 MIN LATER PHA CALLED AND ASKED WE STOP THAT DOSE AND THEY TO RESCHEDULE TO DIFFERENT DOSE FOR KIDNEY FUNCTION. I STOPPED. NEW DOSE STARTED PER PHA.
--- NOTE | 2023-07-01 19:21 | NUR ---
PT HERE WITH COVIC RESP FAIL. AMBULATES SBA TO BATHROOM. ABX CHANGED THIS HARINDER TO ADJUST FOR KIDNEY FUNCTION. DOING WELL ON 3L O2 AT THIS TIME. STATES FOOD HAS BEEN WORSE THIS STAY. NO OTHER CONCERNS NOTED THIS HARINDER. BED IN LOW POSITION, CALL LITE IN REACH, CALLS APROP
[2023-07-01 20:54] VITALS: BP 168/63
[2023-07-02 03:46] VITALS: BP 175/65
--- NOTE | 2023-07-02 04:35 | NUR ---
SHIFT SUMMARY A/OX4. 2.5 L NC. SOB WITH EXERTION. NO EVENTS OVERNIGHT. USING URINAL IN BED.
[2023-07-02 06:29] LABS: BASOPHILS ABSOLUTE AUTO 0.01 K/mm3 (0.00-0.23); BASOPHILS PERCENT AUTO 0 % (0-2); EOSINOPHILS ABSOLUTE AUTO 0.06 K/mm3 (0.00-0.68); EOSINOPHILS PERCENT AUTO 1 % (0-6); Hematocrit 28.2 % (37.0-53.0); Hemoglobin 8.8 g/dL (13.5-17.5); IMMATURE GRAN ABSOLUTE AUTO 0.02 K/mm3 (0.00-0.10); IMMATURE GRAN PERCENT AUTO 0 % (0-1); LYMPHOCYTES ABSOLUTE AUTO 0.83 K/mm3 (0.84-5.20); LYMPHOCYTES PERCENT AUTO 15 % (21-46); MONOCYTES ABSOLUTE AUTO 0.47 K/mm3 (0.16-1.47); MONOCYTES PERCENT AUTO 9 % (4-13); Mean Corpuscular HGB 30.6 pg (26.0-34.0); Mean Corpuscular HGB Conc 31.2 g/dL (31.5-36.5); Mean Corpuscular Volume 98 fL (80-100); Mean Platelet Volume 12.3 fL (9.1-12.4); NEUTROPHILS PERCENT AUTO 75 % (41-73); Platelet Count 190 K/mm3 (150-400); RDW Standard Deviation 57.5 fL (35.1-46.3); Red Blood Cell Count 2.88 M/mm3 (4.30-5.90); White Blood Cell Count 5.49 K/mm3 (4.00-11.30)
[2023-07-02 06:47] LABS: Albumin, Blood 2.3 g/dL (3.4-5.0); Albumin/Globulin Ratio 0.6 (0.8-1.8); Bilirubin, Total 0.3 mg/dL (0.1-1.0); Bun/Creatinine Ratio 26.1 (12.0-20.0); Calcium, Blood 9.4 mg/dL (8.5-10.1); Creatinine, Blood 1.42 mg/dL (0.60-1.20); Globulin, Blood 3.8 g/dL (2.2-4.0); Potassium, Blood 4.1 mmol/L (3.5-5.5); Total Protein, Blood 6.1 g/dL (6.4-8.2)
[2023-07-02 08:03] VITALS: BP 159/75
--- NOTE | 2023-07-02 09:00 | NUR ---
Pt laying in bed eating breakfast, a/ox, profoundly [place], pleasant and coopertive with care, follows commands well, denies pain, states he's a bit congested, lungs have insp wheezing t/o, occ nonproductive cough, on 2.5 liters o2 via n/c, hrr, no edema noted, ppp+1, cap refill< 3 sec, vs stable, afebrile, piv to right hand site is clear and patent, btx4, abd flat soft nontender, voids without diff, skin c/w/d, maew, siomara, call light in reach.
[2023-07-02] MEDS ORDERED: ATOR10 PO (12:17)
[2023-07-02] MEDS ORDERED: PANT40 PO (12:17)
[2023-07-02] MEDS ORDERED: DECADRON6 M1 PO (12:18)
[2023-07-02] MEDS ORDERED: VISBIOME 112.51 EACH PO (12:18)
[2023-07-02] MEDS ORDERED: AMOCLA875 PO (12:19)
--- NOTE | 2023-07-02 15:17 | NUR ---
pt daughter here to take him home, iv removed intact, went over discharge instructions with both, they verbalized understanding, left via wheelchair with furniture delivery driver in attendence, pt has all his belongings.
== END 2023-07-02 15:04 | disposition home or self-care (01) | DRG 177 ==
LOC: ER 15:55 → PCU 19:46 → MEDS 06-30 19:51 → ENPENDDIS 07-02 10:43 → MEDS 07-02 15:04
PROVIDERS: Internal Medicine; Student in an Organized Health Care Education/Training Program; ADMIT Internal Medicine
PROC: XW033E5 Introduction of Remdesivir Anti-infective into Peripheral Vein, Percutaneous Approach, New Technology Group 5 (ICD-10-PCS; principal; 2023-06-27)
PROC: XW0DXM6 Introduction of Baricitinib into Mouth and Pharynx, External Approach, New Technology Group 6 (ICD-10-PCS; 2023-06-27)
PROC: 3E0DX3Z Introduction of Anti-inflammatory into Mouth and Pharynx, External Approach (ICD-10-PCS; 2023-06-27)
DX: U07.1 COVID-19 (principal); J12.82 Pneumonia due to coronavirus disease 2019; J96.21 Acute and chronic respiratory failure with hypoxia; I50.32 Chronic diastolic (congestive) heart failure; I13.0 Hypertensive heart and chronic kidney disease with heart failure and stage 1 through stage 4 chronic kidney disease, or unspecified chronic kidney disease; J90 Pleural effusion, not elsewhere classified; J44.0 Chronic obstructive pulmonary disease with (acute) lower respiratory infection; E11.22 Type 2 diabetes mellitus with diabetic chronic kidney disease; N18.30 Chronic kidney disease, stage 3 unspecified; E78.00 Pure hypercholesterolemia, unspecified; J43.9 Emphysema, unspecified; F17.210 Nicotine dependence, cigarettes, uncomplicated; I25.10 Atherosclerotic heart disease of native coronary artery without angina pectoris; E11.59 Type 2 diabetes mellitus with other circulatory complications; D63.1 Anemia in chronic kidney disease; Z85.118 Personal history of other malignant neoplasm of bronchus and lung; Z92.21 Personal history of antineoplastic chemotherapy; Z92.3 Personal history of irradiation; Z99.81 Dependence on supplemental oxygen; Z95.5 Presence of coronary angioplasty implant and graft; Z86.73 Personal history of transient ischemic attack (TIA), and cerebral infarction without residual deficits; Z98.890 Other specified postprocedural states; Z79.899 Other long term (current) drug therapy; Z79.4 Long term (current) use of insulin
CPT/HCPCS: 0241U; 32555; 36415; 36430; 71045; 71046; 71260; 80048; 80053; 82728; 82947; 83540; 83550; 83615; 84145; 84157; 85025; 86850; 86900; 86901; 86923; 87070; 87205; 88108; 88305; 89051; 93005; 93010; 94640; 94664; 94760; 94762; 96365-59; 96367; 99285-25; A9270; C9399; J0248; J0360; J0456; J0696; J1650; J1815; J2543; J7050; P9016; Q9967

== ENCOUNTER 2023-07-09 11:24 | Inpatient (IN) | payer MEDICARE ==
[~2023-07-09] VITALS: Ht 180.3 cm; Wt 63.4 kg
[~2023-07-09 11:24] MED LIST changes: +AMOCLA875 PO; +ATOR10 PO; +DECADRON6 M1 PO; +GLIM2 PO; -GLIM4 PO; +LISI20 PO; +PANT40 PO; -Prinivil10 MG PO; +VISBIOME 112.51 EACH PO
[2023-07-09] MEDS ORDERED: Albuterol 2.5 MG/3 ML VIAL INH ONE (11:30)
[2023-07-09] MEDS ORDERED: MethylPREDNISolone Sod Succ 125 MG Vial IV ONE (11:30)
[2023-07-09 11:58] LABS: BASOPHILS ABSOLUTE AUTO 0.03 K/mm3 (0.00-0.23); BASOPHILS PERCENT AUTO 0 % (0-2); EOSINOPHILS ABSOLUTE AUTO 0.09 K/mm3 (0.00-0.68); EOSINOPHILS PERCENT AUTO 1 % (0-6); Hematocrit 27.9 % (37.0-53.0); Hemoglobin 8.4 g/dL (13.5-17.5); IMMATURE GRAN ABSOLUTE AUTO 0.11 K/mm3 (0.00-0.10); IMMATURE GRAN PERCENT AUTO 1 % (0-1); LYMPHOCYTES ABSOLUTE AUTO 0.81 K/mm3 (0.84-5.20); LYMPHOCYTES PERCENT AUTO 9 % (21-46); MONOCYTES ABSOLUTE AUTO 1.01 K/mm3 (0.16-1.47); MONOCYTES PERCENT AUTO 11 % (4-13); Mean Corpuscular HGB 31.2 pg (26.0-34.0); Mean Corpuscular HGB Conc 30.1 g/dL (31.5-36.5); Mean Corpuscular Volume 104 fL (80-100); Mean Platelet Volume 12.3 fL (9.1-12.4); NEUTROPHILS ABSOLUTE AUTO 7.25 K/mm3 (1.96-9.15); NEUTROPHILS PERCENT AUTO 78 % (41-73); Platelet Count 197 K/mm3 (150-400); RDW Coefficient Variation 16.5 % (11.7-14.2); RDW Standard Deviation 62.8 fL (35.1-46.3); Red Blood Cell Count 2.69 M/mm3 (4.30-5.90)
[2023-07-09] MEDS ORDERED: METF500 (12:06)
[2023-07-09] MEDS ORDERED: FURO20 PO (12:07)
[2023-07-09] MEDS ORDERED: OMEPRAZOLE DR 20 MG (12:07)
[2023-07-09 12:17] LABS: Albumin, Blood 2.4 g/dL (3.4-5.0); Albumin/Globulin Ratio 0.6 (0.8-1.8); Bilirubin, Total 0.2 mg/dL (0.1-1.0); Bun/Creatinine Ratio 31.5 (12.0-20.0); Calcium, Blood 9.3 mg/dL (8.5-10.1); Creatinine, Blood 1.3 mg/dL (0.60-1.20); Globulin, Blood 4.1 g/dL (2.2-4.0); Magnesium, Blood 2.1 mg/dL (1.6-2.4); Potassium, Blood 5.6 mmol/L (3.5-5.5); Total Protein, Blood 6.5 g/dL (6.4-8.2)
[2023-07-09 12:28] LABS: Base Excess Venous 5.7 mmol/L; Bicarbonate Venous 28.6 mmol/L (24.0-30.0); PCO2 Venous 67.7 mmHg (38-42); pH Blood Venous 7.29 (7.34-7.37)
[2023-07-09] MEDS ORDERED: Albuterol 2.5 MG/3 ML VIAL INH SCH ×2 (15:25→17:50)
[2023-07-09] MEDS ORDERED: AZIT250 PO (15:34)
[2023-07-09] MEDS ORDERED: PRED20 PO (15:34)
[2023-07-09] MEDS ORDERED: Acetaminophen 325 MG TABLET PO PRN (17:40)
[2023-07-09] MEDS ORDERED: Magnesium Hydroxide Conc 10 ML UDC PO PRN (17:40)
[2023-07-09] MEDS ORDERED: Ipratropium/Albuterol SulF 2.5-0.5MG/3 ML Amp INH SCH (17:40)
[2023-07-09] MEDS ORDERED: Magnesium Sulf 2 GM/Water 50ML 50 ML IV ONE (17:50)
[2023-07-09] MEDS ORDERED: MethylPREDNISolone Sod Succ 125 MG Vial IV SCH (18:00)
[2023-07-09] MEDS ORDERED: Azithromycin 500 MG in NS 250 ML IV SCH (18:00)
[2023-07-09] MEDS ORDERED: Piperacillin/Tazobactam Sod 4.5 GM in NS 100 ML IV SCH (18:30)
[2023-07-09] MEDS ORDERED: Lactobacil 2-S.Thermo-Bifido 1 1 Cap PO SCH (21:00)
[2023-07-09] MEDS ORDERED: Docusate Sodium 100 MG Cap PO SCH (21:00)
[2023-07-09 22:13] VITALS: BP 133/91
[2023-07-09 23:41] VITALS: BP 132/61
[2023-07-10] VITALS (15 sets, daily range): BP systolic 158–199; BP diastolic 47–143
--- NOTE | 2023-07-10 01:34 | NUR ---
ADMISSION PT TO UNIT FROM ER - ON BIPAP 12/11 4LNC. AXO4. CHANGED, CLEANED, AND ORIENTED TO ROOM. ADMISSION COMPLETED. PT TAKEN OFF OF BIPAP AND NC TITRATED SLOWLY FROM 6L NC TO 3LNC POST REMOVAL AND TOLERATING WELL WITH SPO2 >97%.
[2023-07-10 04:04] LABS: BASOPHILS PERCENT AUTO 0 % (0-2); EOSINOPHILS PERCENT AUTO 0 % (0-6); Hematocrit 25.2 % (37.0-53.0); Hemoglobin 7.6 g/dL (13.5-17.5); IMMATURE GRAN ABSOLUTE AUTO 0.07 K/mm3 (0.00-0.10); IMMATURE GRAN PERCENT AUTO 2 % (0-1); LYMPHOCYTES ABSOLUTE AUTO 0.24 K/mm3 (0.84-5.20); LYMPHOCYTES PERCENT AUTO 5 % (21-46); MONOCYTES ABSOLUTE AUTO 0.14 K/mm3 (0.16-1.47); MONOCYTES PERCENT AUTO 3 % (4-13); Mean Corpuscular HGB 30.8 pg (26.0-34.0); Mean Corpuscular HGB Conc 30.2 g/dL (31.5-36.5); Mean Corpuscular Volume 102 fL (80-100); Mean Platelet Volume 11.8 fL (9.1-12.4); NEUTROPHILS ABSOLUTE AUTO 4.29 K/mm3 (1.96-9.15); NEUTROPHILS PERCENT AUTO 90 % (41-73); Platelet Count 171 K/mm3 (150-400); RDW Standard Deviation 59.8 fL (35.1-46.3); Red Blood Cell Count 2.47 M/mm3 (4.30-5.90); White Blood Cell Count 4.74 K/mm3 (4.00-11.30)
[2023-07-10 04:23] LABS: Bun/Creatinine Ratio 37.1 (12.0-20.0); Calcium, Blood 9.3 mg/dL (8.5-10.1); Creatinine, Blood 1.4 mg/dL (0.60-1.20); Potassium, Blood 5.2 mmol/L (3.5-5.5)
[2023-07-10 04:27] LABS: International Normalized Ratio 0.96; Prothrombin Time Results 10.3 Sec (9.7-11.5)
--- NOTE | 2023-07-10 06:11 | NUR ---
SHIFT SUMMARY SEE ADMIT NOTE. POST ADMIT, HAS REMAINED OFF OF BIPAP FOR MAJORITY OF SHIFT UP UNTIL 529, PT PLACED BACK ON BIPAP AT THIS TIME DUE TO INCREASING SOB. AT ONE POINT, MASK POPPED OFF AND PATIENT DESATURATED TO 80%, PT YELLING AND EXTREMELY ANXIOUS DURING THIS EVENT, PT RESATURATED WITHIN 2MINUTES OF PLACING MASK BACK ON. OTHERWISE, PT RESTING THIS SHIFT, R LUNG SOUNDS NOTABLY MORE DIM THAN LEFT TO AUSCULTATION. VSS. BED ALARM IN PLACE. CALL LIGHT WITHIN REACH.
[2023-07-10] MEDS ORDERED: Insulin Human Lispro 100 Units/ML 3ML Syringe SC SCH (07:30)
[2023-07-10] MEDS ORDERED: Enoxaparin 40 MG/0.4 ML SYR SC SCH (09:00)
[2023-07-10] MEDS ORDERED: Oxymetazoline 0.05% Nasal Relief Spray 15mL BTL PRN (09:20)
[2023-07-10] MEDS ORDERED: Lisinopril 20 MG Tab PO SCH (10:00)
--- NOTE | 2023-07-10 10:58 | NUR ---
Spiritual Care Visit. Pt. is sitting up on the side of the bed but displays evidence of frustration. Pt. verbalizes that he is [place], but with a non-verbal nod welcomed prayer. Prayed with Pt. Pt. verbalized gratitude for the spiritual care visit. Will remain available to the Pt.
[2023-07-10] MEDS ORDERED: LORazepam 2 MG/ML 1ML Injection IV ONE (12:00)
[2023-07-10] MEDS ORDERED: Loratadine 5 MG/5 ML 5MLUDC PO SCH (14:00)
[2023-07-10] MEDS ORDERED: Furosemide 10 MG/ML 4ML Vial IV SCH (14:00)
[2023-07-10] MEDS ORDERED: Carvedilol 25 MG Tab PO ONE (14:30)
[2023-07-10] MEDS ORDERED: HydrALAZINE HCl 20 MG / ML 1ML Vial IV PRN ×2 (15:45→20:05)
[2023-07-10] MEDS ORDERED: LORazepam 2 MG/ML 1ML Injection IV PRN (16:00)
[2023-07-10] MEDS ORDERED: Pantoprazole Sodium 40 MG Injection IV SCH (16:30)
[2023-07-10] MEDS ORDERED: Carvedilol 25 MG Tab PO SCH (17:00)
--- NOTE | 2023-07-10 18:00 | NUR ---
SHIFT SUMMARY PT A&O X4, ABLE TO MAKE NEEDS KNOWN. PT HAD INCREASED WORK OF BREATHING THIS AM, HE WAS UNABLE TO TOLERATE BIPAP FOR LONG PERIODS OF TIME. O2 REMAINED >90%. OBTAINED ORDER FOR 0.5MG ATIVAN FOR AIR HUNGER. PT DID WELL WITH THIS AND HAS REMAINED ON 2-4L NC WITH SPO2 >90%. PT HAS BEEN HYPERTENSIVE THIS SHIFT, LISINOPRIL AND CARVEDILOL STARTED WELL PRN IV HYDRALAZINE. PT IS VERY [place], HE DOES WELL WITH WRITTEN MESSAGES. HE IS NOW RESTING COMFORTABLY, CALL LIGHT WITHIN REACH, BREATHING EVEN AND UNLABORED. PLAN FOR POSSIBLE THORACENTESIS TOMORROW, FAMILY HAS BEEN UPDATED.
--- NOTE | 2023-07-10 19:30 | NUR ---
ASSUMPTION OF CARE SUMMARY: ASSUMED CARE OF PT AT 1900 AFTER REPORT FROM DAY SHIFT RN. UPON ASSESSMENT, PT IS EXTREMLY [place] AND ONLY ABLE TO COMMUNICATE THROUGH WRITTEN NOTES. INITIAL CONCERN FOR HTN. SYSTOLIC IS 199 AT THIS TIME. PT HAS PRN HYDRALAZINE. HR IS SINUS IN THE 80S WITH NO C/P. PT IS ON BIPAP AT 10/5 WITH 6L BLEED IN WITH PRN ATIVAN ORDERED. HE IS SATTING 96% AT THIS TIME. LUNG SOUNDS DIMINIHSED T/O. HE HAS R SIDE PLEURAL EFFUSION. BASELIN E2-3L N/C. POSSIBLE THORACENTESIS TOMORROW. HE IS AXO 4 WITH BLOOD SUGARS ACHS. CURRENTLY REQUESTING AFRIN NASAL SPRAY FOR CONGESTED SINUSES, PLAN TO MEDICATE PER EMAR AND COMPLETE ORDERS PLACED AND REQUESTED UNTIL REPORT TO DAY SHIFT RN.
[2023-07-10] MEDS ORDERED: Prazosin HCL 5 MG Cap PO SCH (21:00)
[2023-07-10] MEDS ORDERED: Labetalol HCL 5 MG/ML 4ML Injection (Single Dose) IV ONE (23:20)
[2023-07-11] VITALS (14 sets, daily range): BP systolic 147–191; BP diastolic 42–127
--- NOTE | 2023-07-11 04:49 | NUR ---
PCU CONTROL CLERK FOOD AND BEVERAGE SUMMARY: PT REMAINED STABLE T/O THE NIGHT WITH NO MAJOR CHNAGE SINCE ASSUMPTION OF CARE NOTE. UPON THE START OF SHIFT PRN HYDRALAZINE GIVEN FOR ELEVATED B/PS, WITH NO IMPROVEMENT, WAS CALLED AND ORDERED 2ML PUSH OF LABETOLOL IN WHICH PT B/P RESPONDED WELL TO. PT DENIED AND C/P. ABLE TO TOLERATE BIAP AT BEGINNING OF SHIFT BUT QUICKLY BECAME ANXIOUS AND APPEARD UNCOMFORTABLE. PRN ATIVAN WAS GIVEN BUT PT STILL UNABLE TO TOLERATE BIPAP SO PLACED ON 3L N/C TO MANAGE SATS GREATER THAN 92%. PT WAS TRIPODING AT THE SIDE OF THE BED BUT WAS ABLE TO LAY BACK AND GET SOME REST AFTER RT CAME BY FOR ROUNDS AROUNF MIDNIGHT. PT URINATING CLEAR URINE. ARMINDA ALFARO X 4. EXTREMLY [place] AND COMMUNICATES WITH PAPER AND PEN. PLAN TO CONTINUE TO COMPLETE CARE UNTIL REPORT TO DAYSHIFT BALJIT.
[2023-07-11 05:20] LABS: BASOPHILS ABSOLUTE AUTO 0.01 K/mm3 (0.00-0.23); BASOPHILS PERCENT AUTO 0 % (0-2); EOSINOPHILS PERCENT AUTO 0 % (0-6); Hematocrit 23.3 % (37.0-53.0); Hemoglobin 7.4 g/dL (13.5-17.5); IMMATURE GRAN PERCENT AUTO 1 % (0-1); LYMPHOCYTES ABSOLUTE AUTO 0.32 K/mm3 (0.84-5.20); LYMPHOCYTES PERCENT AUTO 2 % (21-46); MONOCYTES ABSOLUTE AUTO 0.46 K/mm3 (0.16-1.47); MONOCYTES PERCENT AUTO 3 % (4-13); Mean Corpuscular HGB Conc 31.8 g/dL (31.5-36.5); Mean Corpuscular Volume 98 fL (80-100); Mean Platelet Volume 12.1 fL (9.1-12.4); NEUTROPHILS PERCENT AUTO 94 % (41-73); NRBC ABSOLUTE 0.02 K/mm3 (0.00-0.02); NRBC Auto 0.1 /100 WBC (0.0-0.2); Platelet Count 165 K/mm3 (150-400); RDW Standard Deviation 56.3 fL (35.1-46.3); Red Blood Cell Count 2.39 M/mm3 (4.30-5.90); White Blood Cell Count 13.89 K/mm3 (4.00-11.30)
[2023-07-11 05:37] LABS: International Normalized Ratio 1.03
[2023-07-11 06:20] LABS: Albumin, Blood 2.3 g/dL (3.4-5.0); Albumin/Globulin Ratio 0.6 (0.8-1.8); Bilirubin, Total 0.3 mg/dL (0.1-1.0); Bun/Creatinine Ratio 41.4 (12.0-20.0); Calcium, Blood 9.6 mg/dL (8.5-10.1); Creatinine, Blood 1.33 mg/dL (0.60-1.20); Globulin, Blood 3.6 g/dL (2.2-4.0); Potassium, Blood 4.4 mmol/L (3.5-5.5); Total Protein, Blood 5.9 g/dL (6.4-8.2)
[2023-07-11] MEDS ORDERED: AmLODIPine Besylate 5 MG Tab PO SCH (09:00)
[2023-07-11] MEDS ORDERED: Mometasone/Formoterol MDI 100/5 mcg 13 GM INH SCH (09:05)
[2023-07-11] MEDS ORDERED: Insulin Human Lispro 100 Units/ML 3ML Syringe SC ONE (12:45)
--- NOTE | 2023-07-11 17:13 | NUR ---
EOS: PATIENT WITH NO ACUTE EVENTS THROUGH THE DAY, WAS ABLE TO WEAN DOWN TO 3L FROM 4 THIS AM. SPO2 >90%. PATIENT DENIES PAIN OF ANY KIND, INCLUDING CHEST PAIN DESPITE BEING VERY HYPERTENSIVE ON ASSUMPTION OF CARE. RESTARTED ON HOME MEDS, IMPROVED BLOOD PRESSURE MINOR HYPERTENSION OF THE 160'S. PATIENT HAS BEEN COOPERATIVE ALERT AND ORIENTED, ABLE TO MAKE NEEDS KNOWN, STARTED ON FORMULARY EQUIVALENT OF TRELEGY. EDUCATED DAUGHTER. PLAN FOR NPO 0000. DR. MATAMOROS TO PLACE PLEUREX, PATIENT EDUCATED AND AWARE. CBG WAS INCREASED IMPROVED WITH 1 X 8 UNIT WHEN HE WAS 89. WILL RECIEVE LONG ACTING TONIGHT. NO ACUTE CONCERNS FROM THIS RN AT THIS TIME.
--- NOTE | 2023-07-11 19:15 | NUR ---
ASSUMPTION OF CARE NOTE: RECEIVED REPORT FROM DAY SHIFT RN AND ASSUMED CARE OF PT AT 1900. UPON INITIAL ASSESSMENT, PT IS SITTING IN BED AXO X 4. N/C IN PLACE. O2 AT 97% ON 4L. HE IS TALKATIVE, EXTREMLY [place] BUT HAS R SIDE HEARING AIDE IN. HE HAS NO NEURO DEFICITS. DENIES ANY C/P. BLOOD PRESSURES BORDERLINE HTN WITH PRN MEDICATIONS ORDERED. HR IS SINUS IN THE 80'S. HE IS PLANNED FOR PLEUREX DRAIN TOMORROW. NPO AT MIDNIGHT. LUNG SOUNDS DIMINISHED T/O. PT HAS SHALLOW RESPIRATIONS BUT IS STABLE ON 4L AT THIS TIME. DENIES ANY N/V/D. ABLE TO USE BEDSIDE URINAL. PT CURRENTLY IS STABLE AND DENIES ANY NEEDS. WILL CONTINUE TO COMPLETE ORDERS PLACED AND REQUESTED.
[2023-07-11] MEDS ORDERED: Montelukast Sodium 10 MG Tab PO SCH (21:00)
[2023-07-11] MEDS ORDERED: Insulin Glargine-Yfgn 100 Unit/mL 3 ML SYR SC SCH (21:00)
[2023-07-12] VITALS (10 sets, daily range): BP systolic 127–167; BP diastolic 53–100
[2023-07-12 03:57] LABS: BASOPHILS PERCENT AUTO 0 % (0-2); EOSINOPHILS PERCENT AUTO 0 % (0-6); Hematocrit 22.4 % (37.0-53.0); Hemoglobin 7.1 g/dL (13.5-17.5); IMMATURE GRAN PERCENT AUTO 1 % (0-1); LYMPHOCYTES ABSOLUTE AUTO 0.71 K/mm3 (0.84-5.20); LYMPHOCYTES PERCENT AUTO 7 % (21-46); MONOCYTES ABSOLUTE AUTO 0.99 K/mm3 (0.16-1.47); MONOCYTES PERCENT AUTO 9 % (4-13); Mean Corpuscular HGB 30.9 pg (26.0-34.0); Mean Corpuscular HGB Conc 31.7 g/dL (31.5-36.5); Mean Corpuscular Volume 97 fL (80-100); Mean Platelet Volume 12.7 fL (9.1-12.4); NEUTROPHILS ABSOLUTE AUTO 8.99 K/mm3 (1.96-9.15); NEUTROPHILS PERCENT AUTO 83 % (41-73); NRBC ABSOLUTE 0.02 K/mm3 (0.00-0.02); NRBC Auto 0.2 /100 WBC (0.0-0.2); Platelet Count 157 K/mm3 (150-400); RDW Coefficient Variation 16.3 % (11.7-14.2); RDW Standard Deviation 57.1 fL (35.1-46.3); White Blood Cell Count 10.79 K/mm3 (4.00-11.30)
[2023-07-12 04:15] LABS: Bun/Creatinine Ratio 46.1 (12.0-20.0); Calcium, Blood 9.5 mg/dL (8.5-10.1); Creatinine, Blood 1.28 mg/dL (0.60-1.20); Potassium, Blood 4.4 mmol/L (3.5-5.5)
--- NOTE | 2023-07-12 05:50 | NUR ---
PCU WRAP TURNER SUMMARY: THROUGHOUT THE NIGHT, PT REMAINED STABLE WITH NO ACUTE CHANGES IN CONDITION SINCE ASSUMPTION OF CARE NOTE. REMAINED AXO X4. B/P BECAME ELEVATED WITH SYSTOLIC OVER 160 AND PRN HYDRALAZIEN GIVEN WHICH CORRECTED PRESSURES BACK TO NORMAL RANGE. PT REMAINED ON 4L N/C T/O THE NIGHT AND WAS SATTING >92% WITH NO SIGNS OF DISTRESS. HE HAS BEEN NPO SINCE MIDNIGHT FOR PLAN FOR DRAIN PLACEMENT TODAY. PT REMAINS COOPERATIVE WITH STAFF AND DENIES ANY CURRENT NEEDS. PLAN TO CONTINUE TO PROVIDE CARE UNTIL REPORT TO DAY SHIFT RN.
[2023-07-12] MEDS ORDERED: Lisinopril 20 MG Tab PO ONE (09:00)
--- NOTE | 2023-07-12 11:00 | NUR ---
ASSUMPTION OF CARE: NO MAJOR CHANGES FROM PREVIOUS SHIFT. PATIENT NPO AWAITING PLEUREX PLACEMENT. VSS WITH AM VITALS. PATIENT DENIES CHETS PAIN PRESSURE OR SOB. BLOFROM YESTERDAY, HE HAS BEEN NPO SINCE 0000. DR. MATAMOROS HAS SEEN AT BEDSIDE AND CONSENTED, S MEDICAL ASSISTANT INTERNAL MEDICINE WAS PRESENT. 1 DOSE OF HYDRALAZINE THROUGH THE NIGHT. NO MAJOR CONCERNS FROM PATIENT. HGB IS TRENDING DOWN. SURGEON AWARE, BLOOD CONSENT WAS ALSO DONE BY SURGEON. NO ACUTE CONCERNS FROM THIS RN OR HOSPITALIST AT THIS TIME.
[2023-07-12] MEDS ORDERED: Lactated Ringer's 1,000 ML IV ONE (15:17)
[2023-07-12] MEDS ORDERED: CeFAZolin Sodium 2,000 MG in NS 100 ML IV PRN (16:25)
[2023-07-12] MEDS ORDERED: propofoL 20 ML IV ONE (16:41)
[2023-07-12] MEDS ORDERED: Lidocaine 1%-Epineph 1:100000 20 ML MDV ONE (16:52)
--- NOTE | 2023-07-12 17:14 | NUR ---
07/12/23 1714 MAREK VALLEJO 5ML OF LIDOCAINE 1% WAS INJECTED TO OPSITE AT [address] MATAMOROS.
--- NOTE | 2023-07-12 21:20 | NUR ---
ASSUMPTION OF CARE AFTER RECEIVING REPORT FROM PUNEET RN, THIS RN ASSUMED CARE AT APPROX 1915. PATIENT ALERT, ANSWERS ORIENTATION QUESTIONS APPROPRIATELY. IS [place]. COMMUNICATES NEEDS EFFECTIVELY. TELEMETRY SHOWING SINUS 70s. BP STABLE, SBP 120s-150s. DENIES CHEST PAIN, PRESSURE. ON 2L VIA NC, SATs >90%. PLEURX DRAIN TO R CHEST PLACED TODAY. TEGADERM DRESSING C/D/I. REPORTS MILD PAIN WITH DEEPER RR AND COUGHING. PROVIDED PILLOW FOR SPLINTING. REPORTS PAIN TOLERABLE AT THIS TIME. DOES EXPERIENCE MILD SHORTNESS OF BREATH WITH MOBILITY. PATIENT REPOSITIONING HIMSELF INDEPENDENTLY IN BED. IS A SBA WITH MOBILITY FOR GENERALIZED WEAKNESS. CALL LIGHT IN REACH.
[2023-07-13 03:22] VITALS: BP 143/67
--- NOTE | 2023-07-13 04:52 | NUR ---
SHIFT SUMMARY NO ACUTE EVENTS SINCE ASSUMPTION OF CARE. PATIENT RESTED QUIETLY OR SLEPT INTERMITTENTLY THROUGHOUT SHIFT. EASILY AROUSABLE WITH VERBAL STIMULI. TELEMETRY SHOWING SINUS 60s. BP STABLE. DENIES CHEST PAIN/PRESSURE. REMAINS ON 2L VIA NC, SATs >90%. R PLEURX DRAIN WNL. DRESSING C/D/I. MEDICATED PER EMAR X1 WITH PO TYLENOL FOR REPORT OF PLEURITIC PAIN ON R CHEST WALL THAT INCREASES WITH OCCASIONAL COUGH AND DEEPER RR. VOIDING. NO BM THIS SHIFT. PATIENT REPOSITIONING HIMSELF INDEPENDENTLY IN BED, PERFORMING ADLs INDEPENDENTLY. CALL LIGHT IN REACH. WILL CONTINUE TO MONITOR AND REPORT TO ONCOMING RN.
[2023-07-13 06:11] LABS: BASOPHILS PERCENT AUTO 0 % (0-2); EOSINOPHILS ABSOLUTE AUTO 0.01 K/mm3 (0.00-0.68); EOSINOPHILS PERCENT AUTO 0 % (0-6); Hematocrit 23.4 % (37.0-53.0); Hemoglobin 7.4 g/dL (13.5-17.5); IMMATURE GRAN ABSOLUTE AUTO 0.03 K/mm3 (0.00-0.10); IMMATURE GRAN PERCENT AUTO 0 % (0-1); LYMPHOCYTES ABSOLUTE AUTO 1.01 K/mm3 (0.84-5.20); LYMPHOCYTES PERCENT AUTO 14 % (21-46); MONOCYTES ABSOLUTE AUTO 0.87 K/mm3 (0.16-1.47); MONOCYTES PERCENT AUTO 12 % (4-13); Mean Corpuscular HGB 31.2 pg (26.0-34.0); Mean Corpuscular HGB Conc 31.6 g/dL (31.5-36.5); Mean Corpuscular Volume 99 fL (80-100); NEUTROPHILS ABSOLUTE AUTO 5.49 K/mm3 (1.96-9.15); NEUTROPHILS PERCENT AUTO 74 % (41-73); Platelet Count 123 K/mm3 (150-400); RDW Coefficient Variation 16.3 % (11.7-14.2); RDW Standard Deviation 58.7 fL (35.1-46.3); Red Blood Cell Count 2.37 M/mm3 (4.30-5.90); White Blood Cell Count 7.41 K/mm3 (4.00-11.30)
[2023-07-13 06:26] LABS: Bun/Creatinine Ratio 38.5 (12.0-20.0); Calcium, Blood 9.2 mg/dL (8.5-10.1); Creatinine, Blood 1.35 mg/dL (0.60-1.20); Potassium, Blood 4.4 mmol/L (3.5-5.5)
[2023-07-13 08:36] VITALS: BP 155/134
[2023-07-13] MEDS ORDERED: Lisinopril 20 MG Tab PO SCH (09:00)
--- NOTE | 2023-07-13 09:19 | NUR ---
AM SUMMARY PATIENT ATE 100% OF BREAKFAST. PT DAUGHTER IS AT BEDSIDE. PT HAS STATED THAT HE WANTS TO GO HOME TODAY. SPO2 IS >90 W 3 LITERS NASAL CANNULA. INFORMED DAUGHTER THAT WE WILL TEACH HER HOW TO ASSIST HIM IN DRAINING BEFORE HE GOES HOME. ALERT AND ORIENTED X4. PT HAS BEEN REPOSITIONING HIMSELF IN BED AND TO DANGLE OFF THE SIDE OF BED. MEDICATED THIS MORNING PER EMAR. TELEMETRY CONTINUES TO SHOW NSR 65-75. CALL LIGHT IN REACH, DAUGHTER AT BEDSIDE. WILL CONTINUE TO MONITOR.
[2023-07-13 11:28] VITALS: BP 157/82
[2023-07-13] MEDS ORDERED: AMLO5 PO (12:24)
[2023-07-13] MEDS ORDERED: DOCU100 PO (12:25)
[2023-07-13] MEDS ORDERED: FURO40 PO (12:25)
[2023-07-13] MEDS ORDERED: PROBIOTIC1 EA13 PO (12:26)
[2023-07-13] MEDS ORDERED: FERSU300 PO (12:26)
[2023-07-13] MEDS ORDERED: KLOR-CON 1010 ME9 PO (12:31)
--- NOTE | 2023-07-13 13:54 | NUR ---
DISCHARGE SUMMARY PATIENT WAS DISCHARGED AT 1230 PER DOCTOR. PALLIATIVE CARE CAME AND SEEN PT AT BEDSIDE TO GO OVER DRAINING PLEURAL EFFUSION WITH DAUGHTER AND HIM. PATIENT WAS ANXIOUS TO BE DISCHARGED. PATIENTS BLOOD SUGAR WAS HIGH OF 258 AFTER LUNCH, EXPECTED WITH DM 2. VITALS WERE WITHIN NORMAL LIMITS. WENT OVER DISCHARGE SUMMARY WITH PT AND DAUGHTER AT BEDSIDE, NEW MEDICATIONS AND THAT WE SENT THEM TO [facility]. PATIENT WAS TRANSPORTED TO VEHICLE VIA WHEELCHAIR BY THIS RN WITH HOME PORTABLE OXYGEN IN PLACE.
== END 2023-07-13 12:48 | disposition home health service (06) | DRG 291 ==
LOC: ER 11:24 → ERHOLD 11:25 → PCU 22:11
PROVIDERS: Emergency Medicine; Internal Medicine; Student in an Organized Health Care Education/Training Program; Surgery; ADMIT Internal Medicine
PROC: 5A09357 Assistance with Respiratory Ventilation, Less than 24 Consecutive Hours, Continuous Positive Airway Pressure (ICD-10-PCS; 2023-07-10)
PROC: 0W9930Z Drainage of Right Pleural Cavity with Drainage Device, Percutaneous Approach (ICD-10-PCS; principal; 2023-07-12 17:00)
DX: I11.0 Hypertensive heart disease with heart failure (principal); J96.21 Acute and chronic respiratory failure with hypoxia; J44.1 Chronic obstructive pulmonary disease with (acute) exacerbation; J91.8 Pleural effusion in other conditions classified elsewhere; I50.32 Chronic diastolic (congestive) heart failure; Z66 Do not resuscitate; N18.30 Chronic kidney disease, stage 3 unspecified; E11.22 Type 2 diabetes mellitus with diabetic chronic kidney disease; D63.1 Anemia in chronic kidney disease; N28.1 Cyst of kidney, acquired; F17.200 Nicotine dependence, unspecified, uncomplicated; J98.4 Other disorders of lung; R91.8 Other nonspecific abnormal finding of lung field; Z85.118 Personal history of other malignant neoplasm of bronchus and lung; Z92.3 Personal history of irradiation; Z92.21 Personal history of antineoplastic chemotherapy; Z99.81 Dependence on supplemental oxygen; Z79.02 Long term (current) use of antithrombotics/antiplatelets; Z79.84 Long term (current) use of oral hypoglycemic drugs
CPT/HCPCS: 36415; 70450; 71045; 71250; 76770; 80048; 80053; 82803; 82947; 83735; 83880; 84132; 84145; 84484; 85025; 85610; 85730; 93005; 93010; 94640; 94644; 94645; 94660; 94664; 94760; 94762; 96365; 96366; 96367; 96368; 96375; 96376; 99285-25; A9270; C1729; C9113; G0378; J0360; J0456; J0690; J1815; J1940; J2060; J2543; J2704; J2930; J3475; J7050; J7120

== ENCOUNTER 2023-08-30 18:13 | Inpatient (IN) | payer MEDICARE ==
[~2023-08-30] VITALS: Ht 180.3 cm; Wt 59.2 kg
[~2023-08-30 18:13] MED LIST changes: +AZIT250 PO; +DOCU100 PO; +FERSU300 PO; +FURO20 PO; +FURO40 PO; +KLOR-CON 1010 ME9 PO; +METF500; +OMEPRAZOLE DR 20 MG; +PRED20 PO; +PROBIOTIC1 EA13 PO
[2023-08-30] MEDS ORDERED: Ipratropium/Albuterol SulF 2.5-0.5MG/3 ML Amp INH ONE (18:55)
[2023-08-30 19:13] LABS: BASOPHILS ABSOLUTE AUTO 0.01 K/mm3 (0.00-0.23); BASOPHILS PERCENT AUTO 0 % (0-2); EOSINOPHILS ABSOLUTE AUTO 0.06 K/mm3 (0.00-0.68); EOSINOPHILS PERCENT AUTO 1 % (0-6); IMMATURE GRAN ABSOLUTE AUTO 0.02 K/mm3 (0.00-0.10); IMMATURE GRAN PERCENT AUTO 0 % (0-1); LYMPHOCYTES ABSOLUTE AUTO 0.73 K/mm3 (0.84-5.20); LYMPHOCYTES PERCENT AUTO 16 % (21-46); MONOCYTES PERCENT AUTO 11 % (4-13); Mean Corpuscular HGB 30.5 pg (26.0-34.0); Mean Corpuscular HGB Conc 30.2 g/dL (31.5-36.5); Mean Corpuscular Volume 101 fL (80-100); Mean Platelet Volume 11.1 fL (9.1-12.4); NEUTROPHILS ABSOLUTE AUTO 3.26 K/mm3 (1.96-9.15); NEUTROPHILS PERCENT AUTO 71 % (41-73); Platelet Count 223 K/mm3 (150-400); RDW Coefficient Variation 16.7 % (11.7-14.2); RDW Standard Deviation 61.4 fL (35.1-46.3); Red Blood Cell Count 1.77 M/mm3 (4.30-5.90); White Blood Cell Count 4.58 K/mm3 (4.00-11.30)
[2023-08-30 19:20] LABS: Hematocrit 17.9 % (37.0-53.0); Hemoglobin 5.4 g/dL (13.5-17.5)
[2023-08-30 19:32] LABS: Albumin/Globulin Ratio 0.5 (0.8-1.8); Bilirubin, Total 0.2 mg/dL (0.1-1.0); Bun/Creatinine Ratio 15.8 (12.0-20.0); Calcium, Blood 8.3 mg/dL (8.5-10.1); Creatinine, Blood 1.58 mg/dL (0.60-1.20); Globulin, Blood 4.3 g/dL (2.2-4.0); Potassium, Blood 4.3 mmol/L (3.5-5.5); Total Protein, Blood 6.3 g/dL (6.4-8.2)
[2023-08-30 19:41] LABS: International Normalized Ratio 0.98; Prothrombin Time Results 10.5 Sec (9.7-11.5)
[2023-08-30 19:58] LABS: Influenza A, PCR NEGATIVE (NEGATIVE); Influenza B, PCR NEGATIVE (NEGATIVE); Resp Syncytial Virus, PCR NEGATIVE (NEGATIVE); SARS-Cov-2 (COVID-19) PCR, MMC NEGATIVE (NEGATIVE)
[2023-08-30] MEDS ORDERED: Furosemide 10 MG/ML 4ML Vial IV ONE ×3 (20:20→23:05)
[2023-08-30] MEDS ORDERED: Pantoprazole Sodium 40 MG Injection IV ONE ×2 (21:10→22:00)
[2023-08-30] MEDS ORDERED: NS 1,000 ML IV SCH (21:15)
[2023-08-30 21:19] LABS: IMMATURE RETIC FRACTION 18.6 % (2.3-16.0); RETIC HGB EQUIVALENT 22.6 pg (28.20-36.60); RETICULOCYTE COUNT PERCENT 1.77 % (0.50-2.50)
[2023-08-30] MEDS ORDERED: Acetaminophen 325 MG TABLET PO PRN (21:20)
[2023-08-30] MEDS ORDERED: Ondansetron HCl 2 MG / ML 2ML Vial IV PRN (21:20)
[2023-08-30] MEDS ORDERED: Albuterol 2.5 MG/3 ML VIAL INH PRN ×2 (21:25→21:30)
[2023-08-30] MEDS ORDERED: Tiotropium Bromide 2.5 MCG/ACT MIST INHAL (10 ACT/4 GM) INH SCH (21:25)
[2023-08-30 21:34] LABS: Thyroid Stimulating Hormone 1.12 uIU/mL (0.360-4.800)
[2023-08-30] MEDS ORDERED: Mometasone/Formoterol MDI 200/5 mcg 13 GM INH SCH (21:35)
[2023-08-31] MEDS ORDERED: Saline Nasal Spray 45 ML ONE (00:15)
[2023-08-31] MEDS ORDERED: Gabapentin 300 MG Cap PO ONE ×2 (00:15→20:35)
[2023-08-31] MEDS ORDERED: Pantoprazole Sodium 40 MG Injection IV SCH (06:00)
[2023-08-31 06:59] LABS: Hematocrit 24.5 % (37.0-53.0); Hemoglobin 7.8 g/dL (13.5-17.5); Mean Corpuscular HGB 30.7 pg (26.0-34.0); Mean Corpuscular HGB Conc 31.8 g/dL (31.5-36.5); Mean Corpuscular Volume 97 fL (80-100); Mean Platelet Volume 10.7 fL (9.1-12.4); Platelet Count 234 K/mm3 (150-400); RDW Coefficient Variation 17.2 % (11.7-14.2); RDW Standard Deviation 61.3 fL (35.1-46.3); Red Blood Cell Count 2.54 M/mm3 (4.30-5.90); White Blood Cell Count 5.01 K/mm3 (4.00-11.30)
[2023-08-31 07:22] LABS: Albumin/Globulin Ratio 0.5 (0.8-1.8); Bilirubin, Total 0.4 mg/dL (0.1-1.0); Bun/Creatinine Ratio 15.8 (12.0-20.0); Calcium, Blood 9.2 mg/dL (8.5-10.1); Creatinine, Blood 1.46 mg/dL (0.60-1.20); Globulin, Blood 4.2 g/dL (2.2-4.0); Magnesium, Blood 2.1 mg/dL (1.6-2.4); Potassium, Blood 4.2 mmol/L (3.5-5.5); Total Protein, Blood 6.2 g/dL (6.4-8.2)
[2023-08-31] MEDS ORDERED: Iron Dextran 25 MG in NS 50 ML IV ONE (07:35)
[2023-08-31] MEDS ORDERED: Iron Dextran 975 MG in NS 250 ML IV ONE ×2 (07:35→09:00)
[2023-08-31] MEDS ORDERED: Carvedilol 25 MG Tab PO SCH (08:00)
[2023-08-31 08:12] VITALS: BP 146/60
[2023-08-31] MEDS ORDERED: METF500 PO (08:44)
[2023-08-31] MEDS ORDERED: AmLODIPine Besylate 5 MG Tab PO SCH (09:00)
[2023-08-31] MEDS ORDERED: Lisinopril 20 MG Tab PO SCH (09:00)
[2023-08-31] MEDS ORDERED: Atorvastatin 10 MG Tab PO SCH (09:00)
[2023-08-31] MEDS ORDERED: Furosemide 40 MG Tab PO SCH (09:00)
[2023-08-31 11:16] VITALS: BP 135/51
[2023-08-31] MEDS ORDERED: Lactated Ringer's 1,000 ML IV SCH (15:25)
[2023-08-31 15:44] VITALS: BP 161/85
--- NOTE | 2023-08-31 15:59 | NUR ---
History, Chart, Medications and Allergies reviewed before start of procedure. Pre-Op teaching done. Pt verbalizes understanding. PT TO UNIT VIA WC. ABLE TO TRANSFER HIMSELF WITH MINIMAL ASSISTANCE.
[2023-08-31] MEDS ORDERED: propofoL 40 ML IV ONE (16:46)
--- NOTE | 2023-08-31 16:56 | NUR ---
08/31/23 3450 aMni Kerns History, Chart, Medications and Allergies reviewed before start of procedure. MONITOR INTACT WITH CONTINUOUS PULSE OXIMETRY, CONTINUOUS END TITAL CO2, AND INTERMITTENT BLOOD PRESSURE. 3-LEAD EKG REVIEWED WITH PHYSICIAN PRIOR TO START OF PROCEDURE. O2 VIA POM INTACT THROUGHOUT SEDATION/PROCEDURE. Bite Block Placed. HEARING AID IN RIGHT EAR REMAINS IN PLACE DURING PROCEDURE. NO HEARING AID IN RIGHT EAR.
[2023-08-31 17:28] VITALS: BP 135/61
[2023-08-31 17:30] VITALS: BP 151/65
[2023-08-31 18:39] LABS: Hematocrit 29.5 % (37.0-53.0); Hemoglobin 9.3 g/dL (13.5-17.5)
--- NOTE | 2023-08-31 18:44 | NUR ---
SHIFT SUMMARY PT ADMITED THIS AM, 1 PERSON TRANSFER TO BED. PT ALERT, ORIENTED X4; CALM AND COOPERATIVE WITH CARE. PT RESTING IN BED, UP WITH 1 PERSON ASSIST. PT DENIES PAIN, CHEST PAIN/PRESSURE, SOB, NAUSEA, DIZZINESS AND NUMB/TINGLING. TELE SINUS, BP ELEVATED BUT STABLE. ABD SOFT, NONTENDER, +BT T/O. SPO2 >90% ON 2L O2 VIA NC (HOME DOSE). PT TO PROCEDURE THIS AFTERNOON, BACK TO ROOM AT APPROX 1725; DR MATAMOROS AT BEDSIDE, NEW ORDER FOR CLEAR LIQUIDS, ADVANCE TOLERATED. NO OTHER ACUTE CHANGES NOTED. WILL CONTINUE TO MONITOR.
[2023-08-31 19:53] VITALS: BP 144/64
[2023-08-31] MEDS ORDERED: Montelukast Sodium 10 MG Tab PO SCH (21:00)
[2023-08-31] MEDS ORDERED: Insulin Human Lispro 100 Units/ML 3ML Syringe SC SCH ×2 (21:00)
[2023-09-01 04:04] VITALS: BP 138/68
[2023-09-01 04:46] LABS: Hematocrit 27.7 % (37.0-53.0); Hemoglobin 8.8 g/dL (13.5-17.5); Mean Corpuscular HGB 30.1 pg (26.0-34.0); Mean Corpuscular HGB Conc 31.8 g/dL (31.5-36.5); Mean Corpuscular Volume 95 fL (80-100); Mean Platelet Volume 10.9 fL (9.1-12.4); Platelet Count 240 K/mm3 (150-400); RDW Coefficient Variation 17.3 % (11.7-14.2); RDW Standard Deviation 59.9 fL (35.1-46.3); Red Blood Cell Count 2.92 M/mm3 (4.30-5.90); White Blood Cell Count 4.18 K/mm3 (4.00-11.30)
[2023-09-01 05:12] LABS: Bun/Creatinine Ratio 16.5 (12.0-20.0); Calcium, Blood 8.8 mg/dL (8.5-10.1); Creatinine, Blood 1.27 mg/dL (0.60-1.20); Potassium, Blood 4.4 mmol/L (3.5-5.5)
--- NOTE | 2023-09-01 06:04 | NUR ---
SHIFT SUMMARY A/Ox4 AND COOPERATIVE WITH CARE. NOOKSACK, BUT ABLE TO MAKE HIS NEEDS KNOWN. NO ACUTE EVENTS OVERNIGHT. CARDIAC, REMAINS IN SR 70'S WITH NOR REPORTS OF CP, PRESSURE OR DIZZINESS. SBP STABLE 130-140'S. RESPIRATORY, MAINTAINS SPO2 >90% ON 2LNC WITH NO REPORTS OF SOB OR DYSPNEA AT REST. RR EVEN AND UNLABORED. GI/, ABLE TO INDEPENDENTLY VOID INTO URINAL AT BEDSIDE. NO SIGNS OF MELENA NOTED. POTENTIAL D/C HOME THIS AM. NO NEW ORDERS AT THIS TIME, WILL REPORT TO ONCOMING RN. MATTHEW SÁNCHEZ OF THIS NOTE.
[2023-09-01 07:29] VITALS: BP 157/61
[2023-09-01 13:39] LABS: Hemoglobin 8.9 g/dL (13.5-17.5)
--- NOTE | 2023-09-01 13:59 | NUR ---
Khadar is lying in bed and alert. He tells me about his family, his cr and his medical issues. 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 We talk about his four grown children and the two dtrs that live locally (one with him). He shares that he is ready for and feels as if he is at peace with God and man. He looks forward to going home and continuing to get his affairs in order. I normalize his experience, reinforce helpful attitudes and practices, and provide therapeutic listening and a calming presence. Patient responded well and showed signs of an elevated mood.
[2023-09-01] MEDS ORDERED: PANT20 PO (14:47)
--- NOTE | 2023-09-01 15:43 | NUR ---
PATIENT WAS EXPERIENCING NAUSEA HE REPORTED THAT THAT IS NORMAL FOR HIM AND HE HAS MEDICATION AT HOME THAT WORKS WELL FOR IT. WE DISCUSSED WHAT BROUGHT HIM TO THE HOSPITAL AND HE REPORTS FEELING MUCH BETTER AND LESS FATIGUED. THERAPUTIC CONVERSATION ABOUT PATIENTS LIFE AND HIS DOGS. HE HAS TWO YORKIES AND A PANAMANIAN SOLORIO, HE DAUGHTER ALSO HAS A PANAMANIAN SOLORIO. THERAPY DOG WAS IN DURING MY VISIT. HE WILL BE DISCHARGED TODAY. WE DISCUSSED HIS FOLLOW UP APTS AND WAITING FOR THE BIOPSY RESULTS TO FOLLOW UP WITH ONCOLOGY
== END 2023-09-01 17:13 | disposition home health service (06) | DRG 375 ==
LOC: ER 18:13 → ERHOLD 18:14 → PCU 18:14 → EDBEDREQ 21:34 → PCU 08-31 07:56
PROVIDERS: Internal Medicine; Nurse Practitioner Acute Care; Student in an Organized Health Care Education/Training Program; ADMIT Internal Medicine
PROC: 0DB48ZX Excision of Esophagogastric Junction, Via Natural or Artificial Opening Endoscopic, Diagnostic (ICD-10-PCS; principal; 2023-08-30)
PROC: 30233N1 Transfusion of Nonautologous Red Blood Cells into Peripheral Vein, Percutaneous Approach (ICD-10-PCS; 2023-08-30)
DX: C16.0 Malignant neoplasm of cardia (principal); I13.0 Hypertensive heart and chronic kidney disease with heart failure and stage 1 through stage 4 chronic kidney disease, or unspecified chronic kidney disease; I50.32 Chronic diastolic (congestive) heart failure; N18.30 Chronic kidney disease, stage 3 unspecified; J44.9 Chronic obstructive pulmonary disease, unspecified; Z66 Do not resuscitate; I25.10 Atherosclerotic heart disease of native coronary artery without angina pectoris; E11.22 Type 2 diabetes mellitus with diabetic chronic kidney disease; E78.5 Hyperlipidemia, unspecified; D63.1 Anemia in chronic kidney disease; D50.9 Iron deficiency anemia, unspecified; R91.8 Other nonspecific abnormal finding of lung field; Z86.73 Personal history of transient ischemic attack (TIA), and cerebral infarction without residual deficits; Z79.02 Long term (current) use of antithrombotics/antiplatelets; Z99.81 Dependence on supplemental oxygen; Z79.84 Long term (current) use of oral hypoglycemic drugs; Z79.51 Long term (current) use of inhaled steroids; Z85.118 Personal history of other malignant neoplasm of bronchus and lung; Z92.21 Personal history of antineoplastic chemotherapy; Z92.3 Personal history of irradiation; Z72.0 Tobacco use
CPT/HCPCS: 0241U; 36415; 36430; 71046; 80048; 80053; 82272; 82607; 82728; 82746; 82947; 83540; 83550; 83735; 83880; 84443; 85014; 85018; 85025; 85027; 85045; 85610; 86850; 86900; 86901; 86923; 88305; 88360; 93005; 93010; 94640; 94664; 94760; 94762; 96365; 96366; 96374; 96375; 96376; 99285-25; A9270; C9113; G0378; J1750; J1940; J2405; J2704; J7030; J7050; P9016

== ENCOUNTER 2023-10-05 07:57 | Day surgery (SDC) | payer MEDICARE, OTHER ==
[2023-10-05] VITALS (8 sets, daily range): BP systolic 134–186; BP diastolic 53–71
[~2023-10-05] VITALS: Ht 180.3 cm; Wt 60.5 kg
[~2023-10-05 07:57] MED LIST changes: +PANT20 PO
[2023-10-05] MEDS ORDERED: CeFAZolin Sodium 2,000 MG in NS 100 ML IV SCH (08:05)
[2023-10-05] MEDS ORDERED: Lactated Ringer's 1,000 ML IV SCH (08:05)
[2023-10-05] MEDS ORDERED: FentaNYL Citrate 50 MCG/ML 2 ML Injection ONE (08:13)
[2023-10-05] MEDS ORDERED: propofoL 20 ML IV ONE (08:14)
[2023-10-05] MEDS ORDERED: Rocuronium Bromide 10 MG/ML 5ML Injection IV ONE (08:21)
[2023-10-05] MEDS ORDERED: Lidocaine HCl 1% 5 ML SYR INJ ONE ×2 (08:25→08:30)
[2023-10-05] MEDS ORDERED: Midazolam HCl 1MG / ML 2ML Vial IV ONE ×2 (08:25)
[2023-10-05] MEDS ORDERED: Ondansetron HCl 2 MG / ML 2ML Vial IV PRN (08:30)
[2023-10-05] MEDS ORDERED: FentaNYL Citrate 50 MCG/ML 2 ML Injection IV PRN ×3 (08:30)
[2023-10-05] MEDS ORDERED: Ipratropium/Albuterol SulF 2.5-0.5MG/3 ML Amp INH ONE (08:55)
[2023-10-05] MEDS ORDERED: Bupivacaine 0.5% HCl 5 MG/ML 30MLVIAL ONE (09:00)
[2023-10-05] MEDS ORDERED: Dexamethasone Sod Phos 10 MG/ML 1ML VIAL ONE (09:32)
[2023-10-05] MEDS ORDERED: Ondansetron HCl 2 MG / ML 2ML Vial ONE (09:32)
[2023-10-05] MEDS ORDERED: Phenylephrine HCl 100 MCG/ML-NS 10MLSYR (1MG/10ML) ONE (09:36)
[2023-10-05] MEDS ORDERED: ePHEDrine Sulfate 50 MG/ML 1ML Injection ONE (09:39)
[2023-10-05] MEDS ORDERED: Lidocaine HCL 1% 10 ML MDV ONE (09:39)
--- NOTE | 2023-10-05 11:07 | NUR ---
Ambulatory in Day Surgery. Dressing to procedure site clean, dry, intact with no visible drainage, swelling, erythema or bruising noted. Discharge instructions reviewed with patient. Patient verbalizes understanding. Copy given to patient to take home. Patient States Post-Procedure ride home has been arranged. Discharged via wheelchair to private car for ride home. ALL BELONGINGS RETURNED TO PATIENT.
== END 2023-10-05 23:58 | disposition home or self-care (01) ==
LOC: ORSCMMR 07:57 → ORD 07:57 → ORSCMMR 07:58 → ORD 09:30
PROVIDERS: Surgery
PROC: 0JH60WZ Insertion of Totally Implantable Vascular Access Device into Chest Subcutaneous Tissue and Fascia, Open Approach (ICD-10-PCS; principal; 2023-10-05 09:30)
DX: C15.9 Malignant neoplasm of esophagus, unspecified (principal); I10 Essential (primary) hypertension; E78.00 Pure hypercholesterolemia, unspecified; E11.9 Type 2 diabetes mellitus without complications; J44.9 Chronic obstructive pulmonary disease, unspecified; I25.10 Atherosclerotic heart disease of native coronary artery without angina pectoris; Z79.02 Long term (current) use of antithrombotics/antiplatelets; Z79.84 Long term (current) use of oral hypoglycemic drugs; Z79.899 Other long term (current) drug therapy; Z87.891 Personal history of nicotine dependence
CPT/HCPCS: 77001; 82947; C1788; J0690; J1100; J1642; J2001; J2371; J2405; J2704; J3010; J7120

== ENCOUNTER → 2024-03-01 | Outpatient (CLI) | payer MEDICARE ==
[2024-03-01 13:19] LABS: BASOPHILS ABSOLUTE AUTO 0.01 K/mm3 (0.00-0.23); BASOPHILS PERCENT AUTO 0 % (0-2); EOSINOPHILS ABSOLUTE AUTO 0.11 K/mm3 (0.00-0.68); EOSINOPHILS PERCENT AUTO 2 % (0-6); Hematocrit 25.3 % (37.0-53.0); Hemoglobin 8.1 g/dL (13.5-17.5); IMMATURE GRAN ABSOLUTE AUTO 0.02 K/mm3 (0.00-0.10); IMMATURE GRAN PERCENT AUTO 0 % (0-1); LYMPHOCYTES ABSOLUTE AUTO 1.04 K/mm3 (0.84-5.20); LYMPHOCYTES PERCENT AUTO 20 % (21-46); MONOCYTES ABSOLUTE AUTO 0.54 K/mm3 (0.16-1.47); MONOCYTES PERCENT AUTO 10 % (4-13); Mean Corpuscular HGB 34.6 pg (26.0-34.0); Mean Corpuscular Volume 108 fL (80-100); Mean Platelet Volume 11.7 fL (9.1-12.4); NEUTROPHILS ABSOLUTE AUTO 3.45 K/mm3 (1.96-9.15); NEUTROPHILS PERCENT AUTO 67 % (41-73); Platelet Count 165 K/mm3 (150-400); RDW Coefficient Variation 16.4 % (11.7-14.2); RDW Standard Deviation 65.9 fL (35.1-46.3); Red Blood Cell Count 2.34 M/mm3 (4.30-5.90); White Blood Cell Count 5.17 K/mm3 (4.00-11.30)
[2024-03-01 13:50] LABS: Albumin, Blood 2.6 g/dL (3.4-5.0); Albumin/Globulin Ratio 0.6 (0.8-1.8); Bilirubin, Total 0.4 mg/dL (0.1-1.0); Bun/Creatinine Ratio 24.5 (12.0-20.0); Calcium, Blood 9.1 mg/dL (8.5-10.1); Creatinine, Blood 1.55 mg/dL (0.60-1.20); Globulin, Blood 4.4 g/dL (2.2-4.0); Potassium, Blood 4.4 mmol/L (3.5-5.5)
[2024-03-07 11:35] LABS: Free Thyroxine 1.06 ng/dL (0.70-1.60); Thyroid Stimulating Hormone 58.6 uIU/mL (0.360-4.800); Triiodothyronine, Free 1.14 pg/mL (2.18-3.98)
== END ==
LOC: LAB 13:02 → LAB SHORT 13:02
PROVIDERS: Internal Medicine Hematology & Oncology
DX: C34.11 Malignant neoplasm of upper lobe, right bronchus or lung (principal); C15.8 Malignant neoplasm of overlapping sites of esophagus; R94.6 Abnormal results of thyroid function studies; R94.4 Abnormal results of kidney function studies
CPT/HCPCS: 80053; 84439; 84443; 84481; 85025

== ENCOUNTER 2024-03-16 01:52 | Emergency (ER) | payer MEDICARE ==
[~2024-03-16] VITALS: Ht 182.9 cm; Wt 63.5 kg
[2024-03-16] MEDS ORDERED: Albuterol 2.5 MG/3 ML VIAL INH SCH (02:00)
[2024-03-16 02:23] LABS: BASOPHILS PERCENT AUTO 0 % (0-2); EOSINOPHILS ABSOLUTE AUTO 0.11 K/mm3 (0.00-0.68); EOSINOPHILS PERCENT AUTO 2 % (0-6); Hematocrit 24.7 % (37.0-53.0); Hemoglobin 7.8 g/dL (13.5-17.5); IMMATURE GRAN ABSOLUTE AUTO 0.02 K/mm3 (0.00-0.10); IMMATURE GRAN PERCENT AUTO 0 % (0-1); LYMPHOCYTES ABSOLUTE AUTO 0.81 K/mm3 (0.84-5.20); LYMPHOCYTES PERCENT AUTO 13 % (21-46); MONOCYTES ABSOLUTE AUTO 0.66 K/mm3 (0.16-1.47); MONOCYTES PERCENT AUTO 11 % (4-13); Mean Corpuscular HGB 34.5 pg (26.0-34.0); Mean Corpuscular HGB Conc 31.6 g/dL (31.5-36.5); Mean Corpuscular Volume 109 fL (80-100); Mean Platelet Volume 11.3 fL (9.1-12.4); NEUTROPHILS ABSOLUTE AUTO 4.65 K/mm3 (1.96-9.15); NEUTROPHILS PERCENT AUTO 74 % (41-73); NRBC ABSOLUTE 0.02 K/mm3 (0.00-0.02); NRBC Auto 0.3 /100 WBC (0.0-0.2); Platelet Count 179 K/mm3 (150-400); RDW Standard Deviation 64.7 fL (35.1-46.3); Red Blood Cell Count 2.26 M/mm3 (4.30-5.90); White Blood Cell Count 6.25 K/mm3 (4.00-11.30)
[2024-03-16 02:36] LABS: Albumin, Blood 2.7 g/dL (3.4-5.0); Albumin/Globulin Ratio 0.6 (0.8-1.8); Bilirubin, Total 0.3 mg/dL (0.1-1.0); Bun/Creatinine Ratio 19.7 (12.0-20.0); Calcium, Blood 9.2 mg/dL (8.5-10.1); Creatinine, Blood 1.47 mg/dL (0.60-1.20); Globulin, Blood 4.2 g/dL (2.2-4.0); Potassium, Blood 4.8 mmol/L (3.5-5.5); Total Protein, Blood 6.9 g/dL (6.4-8.2)
[2024-03-16] MEDS ORDERED: DELTASONE20 MG PO (04:50)
[2024-03-16] MEDS ORDERED: PredniSONE 20 MG Tab PO ONE (04:50)
[2024-03-16 05:00] VITALS: BP 156/61
== END 2024-03-16 05:15 | disposition home or self-care (01) ==
LOC: ER 01:52
PROVIDERS: Emergency Medicine
DX: J40 Bronchitis, not specified as acute or chronic (principal); E11.9 Type 2 diabetes mellitus without complications; I10 Essential (primary) hypertension; J44.9 Chronic obstructive pulmonary disease, unspecified; F17.200 Nicotine dependence, unspecified, uncomplicated; Z79.84 Long term (current) use of oral hypoglycemic drugs; Z79.51 Long term (current) use of inhaled steroids; Z79.899 Other long term (current) drug therapy
CPT/HCPCS: 71045; 80053; 83880; 84145; 84484; 85025; 93005; 93010; 94644; 94664; 99285-25; J7512

== ENCOUNTER 2024-03-18 10:50 | Inpatient (IN) | payer MEDICARE ==
[~2024-03-18] VITALS: Ht 182.9 cm; Wt 60.0 kg
[2024-03-18] VITALS (15 sets, daily range): BP systolic 133–186; BP diastolic 58–88
[~2024-03-18 10:50] MED LIST changes: +DELTASONE20 MG PO
[2024-03-18 11:59] LABS: Base Excess Venous 6.3 mmol/L; Bicarbonate Venous 29.4 mmol/L (24.0-30.0); PCO2 Venous 53.7 mmHg (38-42); pH Blood Venous 7.38 (7.34-7.37)
[2024-03-18 12:04] LABS: BASOPHILS PERCENT AUTO 0 % (0-2); EOSINOPHILS PERCENT AUTO 0 % (0-6); Hematocrit 24.4 % (37.0-53.0); Hemoglobin 7.9 g/dL (13.5-17.5); IMMATURE GRAN ABSOLUTE AUTO 0.08 K/mm3 (0.00-0.10); IMMATURE GRAN PERCENT AUTO 1 % (0-1); LYMPHOCYTES ABSOLUTE AUTO 0.45 K/mm3 (0.84-5.20); LYMPHOCYTES PERCENT AUTO 8 % (21-46); MONOCYTES ABSOLUTE AUTO 0.32 K/mm3 (0.16-1.47); MONOCYTES PERCENT AUTO 5 % (4-13); Mean Corpuscular HGB 34.8 pg (26.0-34.0); Mean Corpuscular HGB Conc 32.4 g/dL (31.5-36.5); Mean Corpuscular Volume 108 fL (80-100); Mean Platelet Volume 11.5 fL (9.1-12.4); NEUTROPHILS ABSOLUTE AUTO 5.04 K/mm3 (1.96-9.15); NEUTROPHILS PERCENT AUTO 86 % (41-73); Platelet Count 177 K/mm3 (150-400); RDW Coefficient Variation 15.8 % (11.7-14.2); RDW Standard Deviation 62.4 fL (35.1-46.3); Red Blood Cell Count 2.27 M/mm3 (4.30-5.90); White Blood Cell Count 5.89 K/mm3 (4.00-11.30)
[2024-03-18] MEDS ORDERED: Furosemide 10 MG/ML 4ML Vial IV ONE ×2 (12:20→18:30)
[2024-03-18] MEDS ORDERED: HydrALAZINE HCl 20 MG / ML 1ML Vial IV ONE (12:30)
[2024-03-18 12:35] LABS: Albumin, Blood 2.7 g/dL (3.4-5.0); Albumin/Globulin Ratio 0.6 (0.8-1.8); Bilirubin, Total 0.4 mg/dL (0.1-1.0); Bun/Creatinine Ratio 25.6 (12.0-20.0); Calcium, Blood 9.5 mg/dL (8.5-10.1); Creatinine, Blood 1.33 mg/dL (0.60-1.20); Globulin, Blood 4.3 g/dL (2.2-4.0); Potassium, Blood 4.9 mmol/L (3.5-5.5)
[2024-03-18 12:59] LABS: Influenza A, PCR NEGATIVE (NEGATIVE); Influenza B, PCR NEGATIVE (NEGATIVE); Resp Syncytial Virus, PCR NEGATIVE (NEGATIVE); SARS-Cov-2 (COVID-19) PCR, MMC NEGATIVE (NEGATIVE)
[2024-03-18] MEDS ORDERED: Nitroglycerin/D5W 250 ML IV SCH (13:05)
[2024-03-18] MEDS ORDERED: Aspirin 325 MG Tab PO ONE (13:05)
[2024-03-18] MEDS ORDERED: Ipratropium/Albuterol SulF 2.5-0.5MG/3 ML Amp INH SCH (15:00)
[2024-03-18] MEDS ORDERED: Nitroglycerin 0.4 MG SUBL SL PRN (15:30)
[2024-03-18] MEDS ORDERED: FLU VACC TS2024-25(6MOS UP)/PF 45 MCG/0.5 ML SYRINGE IM SCH (16:55)
[2024-03-18] MEDS ORDERED: Dose Adjust by Pharmacy XX STA (18:10)
[2024-03-18 18:12] LABS: Anti-Xa UFH, PHA Monitoring <0.10 IU/mL; International Normalized Ratio 1.02; Prothrombin Time Results 10.9 Sec (9.7-11.5)
[2024-03-18] MEDS ORDERED: Heparin Sodium 5000 Units/ML 1ML MDV IV ONE (18:15)
[2024-03-18] MEDS ORDERED: Heparin Sodium,Porcine/0.5 NS 500 ML IV SCH (18:15)
[2024-03-18] MEDS ORDERED: Lisinopril 20 MG Tab PO SCH (19:00)
[2024-03-18] MEDS ORDERED: Atorvastatin 40 MG Tab PO SCH (19:00)
[2024-03-18] MEDS ORDERED: Carvedilol 25 MG Tab PO SCH (19:00)
--- NOTE | 2024-03-18 19:25 | NUR ---
PATIENT RECIEVED FROM ED INTO BED 11. PATIENT ORIENTED TO THE ROOM. NITRO GTT CONTINUES AND HEPARIN GTT STARTED. SEE EMAR FOR DETAILS. 95% ON 3-4LNC. 12 LEAD EKG DONE. FIRE PREVENTION INSTRUCTIONS GIVEN TO PATIENT. NEGATIVE RETOUCHER AT BEDSIDE TO GET REPORT. REPORT GIVEN TO RAPHAEL SMILEY. ALL QUESTIONS ANSWERED.
[2024-03-18] MEDS ORDERED: GABA100 PO (20:21)
[2024-03-18] MEDS ORDERED: THERA-D2000 UNIT PO (20:22)
[2024-03-18] MEDS ORDERED: Vitamin B-12100 MCG PO (20:23)
[2024-03-18] MEDS ORDERED: Insulin Human Lispro 100 Units/ML 3ML Syringe SC SCH (21:00)
[2024-03-18] MEDS ORDERED: NS 250 ML IV PRN (22:25)
[2024-03-19] VITALS (54 sets, daily range): BP systolic 119–179; BP diastolic 43–88
--- NOTE | 2024-03-19 04:39 | NUR ---
SHIFT SUMMARY PT IS A/OX4, RESPONDING AND CALLING APPROPRIATLY. ON CONTINUOUS UNDERCOLLAR MAKER, HR 60'S, MAPS > 65, DENIES CP/PRESSURE T/O THIS SHIFT. NITRO GTT INFUSING AT 5 MCG/MIN. ON 3L NC, SATS > 94%. HE USES O2 AT HOME, 2L IS HIS BASELINE. L/S WHEEXY T/O, PRN NEB TX'S FOR RELIEF. USES URINAL INDEPENDENTLY AT BEDSIDE. NO BM THIS SHIFT. NITRO AND TKO ARE INFUSING TO PORT IN L CHEST. NO ACUTE EVENTS THIS SHIFT.
[2024-03-19] MEDS ORDERED: Pantoprazole Sodium 20 MG Tab PO SCH (06:00)
--- NOTE | 2024-03-19 07:00 | NUR ---
ASSUME CARE: I have assumed care of this patient. Oxygen at 3L via NC. Nitroglycerine infusing at 10 mcg/min. He is resting comfortably at this time.
[2024-03-19] MEDS ORDERED: Furosemide 10 MG/ML 4ML Vial IV SCH (09:00)
[2024-03-19] MEDS ORDERED: Aspirin 81 MG Chew PO SCH (09:00)
[2024-03-19] MEDS ORDERED: Oxymetazoline 0.05% Nasal Relief Spray 15mL BTL SCH (09:00)
[2024-03-19] MEDS ORDERED: Empagliflozin 10 MG TAB PO SCH (09:00)
[2024-03-19] MEDS ORDERED: Albuterol 2.5 MG/3 ML VIAL INH PRN (09:45)
[2024-03-19] MEDS ORDERED: Tiotropium Bromide 2.5 MCG/ACT MIST INHAL (10 ACT/4 GM) INH SCH (09:45)
[2024-03-19 10:07] LABS: Anion Gap 7 mmol/L (3-11); Blood Urea Nitrogen 38 mg/dL (8-24); Bun/Creatinine Ratio 24.7 (12.0-20.0); C-REACTIVE PROTEIN, EXT RANGE 0.962 mg/dL (0.000-0.300); CHOL/HDL RATIO 3.7; CO2, Blood 33 mmol/L (21-32); Calcium, Blood 9.2 mg/dL (8.5-10.1); Chloride, Blood 103 mmol/L (98-108); Cholesterol 181 mg/dL (50-200); Creatinine, Blood 1.54 mg/dL (0.60-1.20); Glomerular Filtration Rate 46 (60-); Glucose, Blood 246 mg/dL (70-99); HDL Cholesterol 49 mg/dL (>39); Low Density Lipoprotein Chol 98 mg/dL (0-110); Magnesium, Blood 1.9 mg/dL (1.6-2.4); Potassium, Blood 4.3 mmol/L (3.5-5.5); Sodium, Blood 139 mmol/L (136-145); Triglycerides 172 mg/dL (30-160); Very Low Density Lipoprot Chol 34 mg/dL (6-32)
[2024-03-19 10:11] LABS: BASOPHILS ABSOLUTE AUTO 0.01 K/mm3 (0.00-0.23); BASOPHILS PERCENT AUTO 0 % (0-2); EOSINOPHILS ABSOLUTE AUTO 0.06 K/mm3 (0.00-0.68); EOSINOPHILS PERCENT AUTO 1 % (0-6); Hematocrit 24.4 % (37.0-53.0); Hemoglobin 7.9 g/dL (13.5-17.5); IMMATURE GRAN ABSOLUTE AUTO 0.04 K/mm3 (0.00-0.10); IMMATURE GRAN PERCENT AUTO 1 % (0-1); LYMPHOCYTES ABSOLUTE AUTO 0.92 K/mm3 (0.84-5.20); LYMPHOCYTES PERCENT AUTO 18 % (21-46); MONOCYTES ABSOLUTE AUTO 0.63 K/mm3 (0.16-1.47); MONOCYTES PERCENT AUTO 12 % (4-13); Mean Corpuscular HGB 34.6 pg (26.0-34.0); Mean Corpuscular HGB Conc 32.4 g/dL (31.5-36.5); Mean Corpuscular Volume 107 fL (80-100); Mean Platelet Volume 11.5 fL (9.1-12.4); NEUTROPHILS ABSOLUTE AUTO 3.56 K/mm3 (1.96-9.15); NEUTROPHILS PERCENT AUTO 68 % (41-73); Platelet Count 174 K/mm3 (150-400); RDW Coefficient Variation 16.1 % (11.7-14.2); RDW Standard Deviation 62.5 fL (35.1-46.3); Red Blood Cell Count 2.28 M/mm3 (4.30-5.90); White Blood Cell Count 5.22 K/mm3 (4.00-11.30)
[2024-03-19 10:50] LABS: Base Excess Venous 11.3 mmol/L; Bicarbonate Venous 33.9 mmol/L (24.0-30.0); PCO2 Venous 47.6 mmHg (38-42); pH Blood Venous 7.47 (7.34-7.37)
[2024-03-19] MEDS ORDERED: Gabapentin 100 MG Cap PO SCH ×2 (11:05→21:00)
[2024-03-19] MEDS ORDERED: Mometasone/Formoterol MDI 200/5 mcg 13 GM INH SCH (11:10)
[2024-03-19] MEDS ORDERED: Misc. Inpatient Respiratory Med INH SCH (12:00)
[2024-03-19] MEDS ORDERED: Colchicine 0.6 MG TAB PO SCH (12:15)
[2024-03-19] MEDS ORDERED: LEVSOD75 PO (12:30)
[2024-03-19] MEDS ORDERED: Levothyroxine Sodium 0.075 MG Tab PO SCH (14:00)
[2024-03-19 14:15] LABS: Triiodothyronine, Free 1.12 pg/mL (2.18-3.98)
--- NOTE | 2024-03-19 17:57 | NUR ---
SHIFT SUMMARY: Mr Sheldon is alert and oriented x 4. He was up in chair for several hours. Pt mobilizes independently with cord management, though he becomes quite dyspneic with exertion. Denies chest pain; Colchicine started today. He uses urinal without assistance. He is euvolemic at this time. Family brought in home inhaler medication and hearing aids. Pt updating family via his cellphone.
[2024-03-19] MEDS ORDERED: Doxazosin Mesylate 2 MG Tab PO SCH (21:00)
[2024-03-19] MEDS ORDERED: Montelukast Sodium 10 MG Tab PO SCH (21:00)
[2024-03-19] MEDS ORDERED: Saline Nasal Spray 45 ML PRN (21:20)
[2024-03-19] MEDS ORDERED: Oxymetazoline 0.05% Nasal Relief Spray 15mL BTL PRN (23:40)
[2024-03-20] VITALS (12 sets, daily range): BP systolic 130–153; BP diastolic 45–77
[2024-03-20 04:06] LABS: BASOPHILS ABSOLUTE AUTO 0.01 K/mm3 (0.00-0.23); BASOPHILS PERCENT AUTO 0 % (0-2); EOSINOPHILS ABSOLUTE AUTO 0.07 K/mm3 (0.00-0.68); EOSINOPHILS PERCENT AUTO 1 % (0-6); Hematocrit 22.4 % (37.0-53.0); Hemoglobin 7.1 g/dL (13.5-17.5); IMMATURE GRAN ABSOLUTE AUTO 0.03 K/mm3 (0.00-0.10); IMMATURE GRAN PERCENT AUTO 1 % (0-1); LYMPHOCYTES ABSOLUTE AUTO 1.32 K/mm3 (0.84-5.20); LYMPHOCYTES PERCENT AUTO 27 % (21-46); MONOCYTES ABSOLUTE AUTO 0.59 K/mm3 (0.16-1.47); MONOCYTES PERCENT AUTO 12 % (4-13); Mean Corpuscular HGB 33.8 pg (26.0-34.0); Mean Corpuscular HGB Conc 31.7 g/dL (31.5-36.5); Mean Corpuscular Volume 107 fL (80-100); Mean Platelet Volume 11.4 fL (9.1-12.4); NEUTROPHILS ABSOLUTE AUTO 2.91 K/mm3 (1.96-9.15); NEUTROPHILS PERCENT AUTO 59 % (41-73); Platelet Count 152 K/mm3 (150-400); RDW Standard Deviation 62.4 fL (35.1-46.3); White Blood Cell Count 4.93 K/mm3 (4.00-11.30)
[2024-03-20 04:22] LABS: Calcium, Blood 9.2 mg/dL (8.5-10.1); Creatinine, Blood 1.64 mg/dL (0.60-1.20); Potassium, Blood 3.8 mmol/L (3.5-5.5)
--- NOTE | 2024-03-20 05:52 | NUR ---
SHIFT SUMMARY PATIENT SLEPT MOST OF NIGHT. PATIETN NPO AFTER MIDNIGHT EXCEPT A FEW SIPS FOR MORNING MEDS @ 0530. PATIENT HAD MOUTH SWAPS AFTER MIDNIGHT X4. A&O X4, ON 3L OF O2 VIA NC. LUNGS BILATERALLY CLEAR IN UPPER LOBES AND DIMINISHED IN LOWER LOBES. SBP 120'S AND HR IN THE 60-70'S. USING BEDSIDE URINAL. CALL LIGHT WITHIN REACH BUT PATIENT DOES NOT USE IT JUST YELLS FOR NURSE. PATIENT VERY HARD OF HEARING AND FAMILY BROUGHT SOME HEARING AIDS FOR PATIENT.
[2024-03-20] MEDS ORDERED: Colchicine 0.6 MG TAB PO SCH (09:00)
[2024-03-20] MEDS ORDERED: Cyanocobalamin 100 MCG Tab PO SCH (09:00)
[2024-03-20] MEDS ORDERED: Cholecalciferol 1000 Unit Tablet (=25MCG) PO SCH (09:00)
--- NOTE | 2024-03-20 11:43 | NUR ---
patient blood sugar 311, patient reports just drinking an orange juice, will check blood sugar again before lunch.
--- NOTE | 2024-03-20 15:52 | NUR ---
patient transferred to pcu bed 1
--- NOTE | 2024-03-20 16:35 | NUR ---
TRANSFER/SHIFT ASSESSMENT: PT ARRIVED FROM ICU 11 TO PCU 1 @1530 VIA WHEELCHAIR. PT ABLE TO STAND AND TRANSFER WITH ONE PERSON ASSIST. PT ALERT AND ORIENTED X4, ABLE TO FOLLOW COMMANDS AND MAKE NEEDS KNOWN. SILETZ TRIBE. STRENGTH EQAUL BILATERALLY. PEERLA. BP STABLE. HR SR 70'S. AFEBRILE. SPO2 >92% ON 3L NC. LUNG SOUNDS DIM IN BASES, CLEAR IN UPPER. RESPIRATIONS EVEN AND UNLABORED. ABD SOFT, NON TENDER, BOWEL SOUNDS + PULSES STRONG AND EQUAL THROUGHOUT. +1 EDEMA NOTED IN BLE. PT NPO AT MIDNIGHT FOR POSSIBLE ANGIOGRAM PENDING AM LABS. PT ORIENTED TO ROOM AND CALL LIGHT SYSTEM. DENIES PAIN. BED IN LOW, CALL LIGHT IN REACH, WILL REPORT TO ONCOMING RN.
--- NOTE | 2024-03-20 23:53 | NUR ---
ASSUMPTION OF CARE: PATIENT IN NO SIGN OF DISTRESS. VSS. ON 3L VIA NC. DENIES CHEST PAIN PRESSURE OR SOB. TKO INFUSING TO RCW PORT. ABLE TO MAKE NEEDS KNOWN, A/O X 4. PLEASANT, COOPERATIVE, NO CONCERNS NOTED AT THIS TIME. NPO AT MIDNIGHT FOR POTENTIAL CARDIAC CATHETERIZATION. DEPENDENT ON AM LABS.
[2024-03-21] VITALS (10 sets, daily range): BP systolic 123–1338; BP diastolic 44–80
[2024-03-21 04:32] LABS: Hematocrit 21.7 % (37.0-53.0); Mean Corpuscular HGB 34.5 pg (26.0-34.0); Mean Corpuscular HGB Conc 32.3 g/dL (31.5-36.5); Mean Corpuscular Volume 107 fL (80-100); Platelet Count 139 K/mm3 (150-400); RDW Coefficient Variation 15.9 % (11.7-14.2); RDW Standard Deviation 61.1 fL (35.1-46.3); Red Blood Cell Count 2.03 M/mm3 (4.30-5.90); White Blood Cell Count 4.98 K/mm3 (4.00-11.30)
[2024-03-21 05:01] LABS: Bun/Creatinine Ratio 29.3 (12.0-20.0); Calcium, Blood 8.4 mg/dL (8.5-10.1); Creatinine, Blood 1.57 mg/dL (0.60-1.20); Potassium, Blood 4.1 mmol/L (3.5-5.5)
[2024-03-21] MEDS ORDERED: Liothyronine Sodium 5 MCG Tab PO SCH (06:00)
[2024-03-21] MEDS ORDERED: Levothyroxine Sodium 0.088 MG Tab PO SCH (06:00)
[2024-03-21] MEDS ORDERED: NS 500 ML IV SCH (09:50)
[2024-03-21] MEDS ORDERED: MethylPREDNISolone Sod Succ 125 MG Vial IV SCH (13:00)
--- NOTE | 2024-03-21 18:23 | NUR ---
SHIFT SUMMARY/ DISCHARGE SUMMARY A&OR X4, OBEYS COMMANDS, ABLE TO MAKE NEEDS KNOWN, AMBULATING 1 PERSON WITH FWW, RIGHT LEG SWOLLEN COMPAIRED TO LEFT LEG/ STATES THE SWELLING HAS IMPROVED SINCE. CONTINUOUS SPO2, SPO2 GREATER THAN 90% ON BASELINE OF 2L O2 VIA NC, LUNGS SOUND CLEAR T/O. CONTINUOUS TELE MONITORING, HR 70-80 S, SINUS RHYTHM, PT DENIES CHEST P/P T/O THIS SHIFT, PULSES PRESENT T/O. PT DENIES PAIN. PT TO CATHLAB THIS SHIFT FOR PROCEDURE, PT RETURNED TO ROOM @ APPROX 1400, FEMORAL SITE SOFT/NONTENDER/NO SIGNS OF HEMATOMA, DRESSING C/D/I, PT SAT UP @ APPROX 1500/SITE REMAINS UNCHANGED, PT @ APPROX 1600 UP TO CHAIR/SITE REMAINS UNCHANGED. PT AND PT EDUCATED ON FEMORAL SITE CARE, NEW/UPDATED/DISCONTINUED MEDICATIONS, FOLLOW UP APPOINTMENTS, PT AND VERBALIZED UNDERSTANDING. ALL IV S REMOVED, PT TAKEN OUT VIA WHEELCHAIR BY MEDICAL STAFF.
--- NOTE | 2024-03-21 19:24 | NUR ---
ASSUMPTION OF CARE: NO ACUTE CONCERNS OR ACUTE CHANGES NO ANGIO, REVIEW CARDIOLOGY NOTE. ONCOLOGY SEEN PATIENT DR. GONZALEZ, CHANGES TO EMAR. PATIENT IN NO DISTRESS, DENIES CHEST PAIN PRESSURE OR SOB AT REST. SOME DYSPNEA WITH EXERTION VSS.
[2024-03-22] VITALS (7 sets, daily range): BP systolic 152–178; BP diastolic 55–78
[2024-03-22] MEDS ORDERED: TraMADol HCl 50 MG Tab PO ONE (00:15)
[2024-03-22 05:26] LABS: Hematocrit 25.3 % (37.0-53.0); Hemoglobin 8.2 g/dL (13.5-17.5); Mean Corpuscular HGB 34.2 pg (26.0-34.0); Mean Corpuscular HGB Conc 32.4 g/dL (31.5-36.5); Mean Corpuscular Volume 105 fL (80-100); Mean Platelet Volume 12.2 fL (9.1-12.4); Platelet Count 144 K/mm3 (150-400); RDW Coefficient Variation 15.9 % (11.7-14.2); RDW Standard Deviation 61.2 fL (35.1-46.3); White Blood Cell Count 5.26 K/mm3 (4.00-11.30)
--- NOTE | 2024-03-22 06:00 | NUR ---
EOS: ONLY CHANGE FROM ASSUMPTION OF CARE IS PATIENT REQUIRED A SINGLE DOSE OF TRAMADOL 25, WHICH CONTROLLED PAIN PORDER WAS X 1. NO ACUTE CONCERNS FROM THIS RN
[2024-03-22 06:08] LABS: Bun/Creatinine Ratio 30.2 (12.0-20.0); Calcium, Blood 8.6 mg/dL (8.5-10.1); Creatinine, Blood 1.69 mg/dL (0.60-1.20); Potassium, Blood 4.7 mmol/L (3.5-5.5)
[2024-03-22] MEDS ORDERED: Furosemide 40 MG Tab PO SCH (09:00)
[2024-03-22] MEDS ORDERED: AmLODIPine Besylate 5 MG Tab PO SCH (09:00)
[2024-03-22] MEDS ORDERED: AmLODIPine Besylate 5 MG Tab PO ONE (16:00)
--- NOTE | 2024-03-22 17:57 | NUR ---
SHIFT SUMMARY PT A&O X4, ABLE TO MAKE NEEDS KNOWN, OBEYS COMMANDS, HARD OF HEARING, GENERALIZED WEAKNESS, PT GETTING UP SBA WITH FWW TO BRP, PT RIGHT EYE DROOPING WITH REDNESS TO UNDER LID. CONTINUOUS SPO2 MONITORING, SPO2 GREATER THAN 90% ON 2L O2 VIA NC, LUNGS SOUND CLEAR T/O WITH DIMINISHED BASES. CONTINUOUS TELE MONITORING, HR 70-100 S, SINUS RHYTHM, HEART SOUNDS DISTANT, PT DENIES CHEST P/P T/O THIS SHIFT, BP ELEVATED THIS SHIFT WITH HIGHEST SBP. PT USING S. URINAL IND IN BED, URINE YELLOW IN COLOR. DENIES NAUSEA, BOWEL TONES PRESET IN ALL 4Q. DENIES PAIN T/O THIS SHIFT, PT INCREASED APPETITE, PT REQUIRING MORE INSULIN COVERAGE THIS SHIFT COMPARED TO LAST SHIFT.
[2024-03-23 03:37] VITALS: BP 159/77
[2024-03-23 04:01] LABS: Hematocrit 24.2 % (37.0-53.0); Hemoglobin 7.9 g/dL (13.5-17.5); Mean Corpuscular HGB 34.8 pg (26.0-34.0); Mean Corpuscular HGB Conc 32.6 g/dL (31.5-36.5); Mean Corpuscular Volume 107 fL (80-100); Platelet Count 143 K/mm3 (150-400); RDW Coefficient Variation 15.9 % (11.7-14.2); RDW Standard Deviation 60.8 fL (35.1-46.3); Red Blood Cell Count 2.27 M/mm3 (4.30-5.90)
[2024-03-23 04:16] LABS: Bun/Creatinine Ratio 39.2 (12.0-20.0); Calcium, Blood 8.8 mg/dL (8.5-10.1); Creatinine, Blood 1.53 mg/dL (0.60-1.20); Potassium, Blood 4.6 mmol/L (3.5-5.5)
[2024-03-23] MEDS ORDERED: AmLODIPine Besylate 5 MG Tab PO SCH (06:00)
[2024-03-23 06:29] VITALS: BP 158/72
--- NOTE | 2024-03-23 07:09 | NUR ---
SHIFT SUMMARY PT IS A&OX4, VERY [place], COOPERATIVE WITH CARE. ELEVATED BP, SYS >155, HR IN THE 70'S, AFEBRILE, ON 2L NC, SATS >95%. DENIES PAIN. TOLERATING A CONS CARB DIET WITH GOOD APPETITE. SBA, NOOB THIS SHIFT. USES URINAL INDEPENDENTLY AT BEDSIDE. ADEQUATE AMOUNTS OF CLEAR, YELLOW URINE. NO BM THIS SHIFT. BED IN LOWEST POSITION, CALL LIGHT WITHIN REACH.
[2024-03-23 08:25] VITALS: BP 142/67
[2024-03-23] MEDS ORDERED: AMLO10 PO (10:38)
[2024-03-23] MEDS ORDERED: ASPI81CH PO (10:39)
[2024-03-23] MEDS ORDERED: COLCHICINE0.6 MG PO (10:39)
[2024-03-23] MEDS ORDERED: JARDIANCE10 MG PO (10:40)
[2024-03-23] MEDS ORDERED: NITR.4SL SL (10:41)
[2024-03-23] MEDS ORDERED: EUTHYROX88 MCG PO (10:42)
[2024-03-23] MEDS ORDERED: AFRIN15 M6 (10:42)
[2024-03-23] MEDS ORDERED: LIOT5 PO (10:43)
[2024-03-23] MEDS ORDERED: PRED20 PO (10:44)
--- NOTE | 2024-03-23 11:41 | NUR ---
DISCHARGE SUMMARY PT A&O X4, ABLE TO MAKE NEEDS KNOWN, OBEYS COMMANDS, HARD OF HEARING, GENERALIZED WEAKNESS, PT GETTING UP SBA WITH FWW TO BRP, PT RIGHT EYE DROOPING WITH REDNESS TO UNDER LID. CONTINUOUS SPO2 MONITORING, SPO2 GREATER THAN 90% ON 2L O2 VIA NC, LUNGS SOUND CLEAR T/O WITH DIMINISHED BASES. HR 70 S, PT DENIES CHEST P/P T/O THIS SHIFT, BP ELEVATED THIS SHIFT WITH HIGHEST SBP OF 140. PT USING S. URINAL IND IN BED, URINE YELLOW IN COLOR. DENIES NAUSEA, BOWEL TONES PRESET IN ALL 4Q. DENIES PAIN T/O THIS SHIFT. MEDIPORT DEACCESSED AND HEPARIN LOCKED PER PROTOCOL, BANDAID PLACED OVER ACCESS SITE. EDUCATION PROVIDED BY THIS RN TO PATIENT AND PATIENT DAUGHTER/NEW MEDICATIONS/DOSE CHANGES/DC D MEDICATIONS/ AND FOLLOW-UP APPOINTMENTS, PT AND DAUGHTER STATED UNDERSTANDING AND HAD NO FURTHER QUESTIONS. PT WAS WHEELED OUT BY MEDICAL STAFF @ APPROX 1130.
== END 2024-03-23 11:20 | disposition home or self-care (01) | DRG 280 ==
LOC: ER 10:50 → PCU 18:07 → ICUE 18:07 → PCU 03-20 15:53
PROVIDERS: Internal Medicine; Student in an Organized Health Care Education/Training Program; ADMIT Family Medicine
PROC: 30233N1 Transfusion of Nonautologous Red Blood Cells into Peripheral Vein, Percutaneous Approach (ICD-10-PCS; principal; 2024-03-21)
DX: I13.0 Hypertensive heart and chronic kidney disease with heart failure and stage 1 through stage 4 chronic kidney disease, or unspecified chronic kidney disease (principal); I50.33 Acute on chronic diastolic (congestive) heart failure; I21.A1 Myocardial infarction type 2; J18.9 Pneumonia, unspecified organism; J96.21 Acute and chronic respiratory failure with hypoxia; J96.22 Acute and chronic respiratory failure with hypercapnia; I16.1 Hypertensive emergency; C15.9 Malignant neoplasm of esophagus, unspecified; C34.11 Malignant neoplasm of upper lobe, right bronchus or lung; D58.8 Other specified hereditary hemolytic anemias; J44.1 Chronic obstructive pulmonary disease with (acute) exacerbation; R64 Cachexia; N17.9 Acute kidney failure, unspecified; Z68.1 Body mass index [BMI] 19.9 or less, adult; Z66 Do not resuscitate; N40.0 Benign prostatic hyperplasia without lower urinary tract symptoms; K21.9 Gastro-esophageal reflux disease without esophagitis; E03.9 Hypothyroidism, unspecified; I25.10 Atherosclerotic heart disease of native coronary artery without angina pectoris; N18.30 Chronic kidney disease, stage 3 unspecified; E78.5 Hyperlipidemia, unspecified; E11.22 Type 2 diabetes mellitus with diabetic chronic kidney disease; D63.1 Anemia in chronic kidney disease; Z79.84 Long term (current) use of oral hypoglycemic drugs; Z79.899 Other long term (current) drug therapy; I16.0 Hypertensive urgency; Z98.890 Other specified postprocedural states; Z87.891 Personal history of nicotine dependence
CPT/HCPCS: 0241U; 36430; 71045; 71260; 80048; 80053; 80061; 82803; 82947; 83735; 83880; 84439; 84443; 84481; 84484; 85025; 85027; 85520; 85610; 85651; 85730; 86140; 86850; 86900; 86901; 86923; 93005; 93010; 93306; 93356; 94640; 94664; 94760; 94762; 96374; 96375; 99285-25; A9270; J0360; J1642; J1644; J1940; J2470; J2919; J7040; J7050; P9016; Q9967

== ENCOUNTER → 2024-05-04 | Outpatient (CLI) | payer MEDICARE ==
[~2024-05-04] MED LIST changes: +AFRIN15 M6; +AMLO10 PO; +ASPI81CH PO; +COLCHICINE0.6 MG PO; +EUTHYROX88 MCG PO; +GABA100 PO; +JARDIANCE10 MG PO; +LEVSOD75 PO; +LIOT5 PO; +THERA-D2000 UNIT PO; +Vitamin B-12100 MCG PO
== END ==
LOC: LAB 16:14 → LAB SHORT 16:14
DX: L08.0 Pyoderma (principal)
CPT/HCPCS: 87070; 87077; 87147; 87186; 87205

== ENCOUNTER 2024-09-21 03:56 | Day surgery (SDC) | payer MEDICARE ==
[2024-09-21] VITALS (7 sets, daily range): BP systolic 125–147; BP diastolic 44–82
[2024-09-21] MEDS ORDERED: NS 250 ML IV SCH (06:45)
== END 2024-09-21 17:22 | disposition home or self-care (01) ==
LOC: ATC 03:56
DX: C15.8 Malignant neoplasm of overlapping sites of esophagus (principal); D63.0 Anemia in neoplastic disease; J44.9 Chronic obstructive pulmonary disease, unspecified; I25.10 Atherosclerotic heart disease of native coronary artery without angina pectoris; I12.9 Hypertensive chronic kidney disease with stage 1 through stage 4 chronic kidney disease, or unspecified chronic kidney disease; E11.22 Type 2 diabetes mellitus with diabetic chronic kidney disease; N18.9 Chronic kidney disease, unspecified; C34.11 Malignant neoplasm of upper lobe, right bronchus or lung; Z87.891 Personal history of nicotine dependence; Z79.02 Long term (current) use of antithrombotics/antiplatelets; Z79.84 Long term (current) use of oral hypoglycemic drugs; Z79.890 Hormone replacement therapy; Z79.899 Other long term (current) drug therapy; Z95.5 Presence of coronary angioplasty implant and graft
CPT/HCPCS: 36430; 86850; 86900; 86901; 86923; J1642; J7050; P9016

== ENCOUNTER 2024-12-20 16:33 | Inpatient (IN) | payer MEDICARE ==
[~2024-12-20] VITALS: Ht 180.3 cm; Wt 62.2 kg
[~2024-12-20 16:33] MED LIST changes: +POTA10T PO
[2024-12-20 16:57] VITALS: BP 199/82
[2024-12-20] MEDS ORDERED: Ondansetron HCl 2 MG / ML 2ML Vial IV PRN (17:10)
[2024-12-20] MEDS ORDERED: D5W-LR 1,000 ML IV SCH (17:10)
[2024-12-20] MEDS ORDERED: Prinivil10 MG PO (17:19)
[2024-12-20] MEDS ORDERED: ONDA4ODT MM (17:20)
[2024-12-20] MEDS ORDERED: Prednisone10 MG PO (17:21)
[2024-12-20] MEDS ORDERED: TRELEGY ELLIPT1 EACH (17:22)
[2024-12-20] MEDS ORDERED: GABA100 PO (17:22)
[2024-12-20] MEDS ORDERED: TRAM50 PO (17:22)
[2024-12-20] MEDS ORDERED: LEVSOD88 PO (17:23)
[2024-12-20 17:35] LABS: BASOPHILS ABSOLUTE AUTO 0.01 K/mm3 (0.00-0.23); BASOPHILS PERCENT AUTO 0 % (0-2); EOSINOPHILS ABSOLUTE AUTO 0.01 K/mm3 (0.00-0.68); EOSINOPHILS PERCENT AUTO 0 % (0-6); Hematocrit 28.3 % (37.0-53.0); Hemoglobin 9.1 g/dL (13.5-17.5); IMMATURE GRAN ABSOLUTE AUTO 0.04 K/mm3 (0.00-0.10); IMMATURE GRAN PERCENT AUTO 0 % (0-1); LYMPHOCYTES ABSOLUTE AUTO 1.03 K/mm3 (0.84-5.20); LYMPHOCYTES PERCENT AUTO 11 % (21-46); MONOCYTES ABSOLUTE AUTO 0.65 K/mm3 (0.16-1.47); MONOCYTES PERCENT AUTO 7 % (4-13); Mean Corpuscular HGB Conc 32.2 g/dL (31.5-36.5); Mean Corpuscular Volume 105 fL (80-100); NEUTROPHILS ABSOLUTE AUTO 7.90 K/mm3 (1.96-9.15); NEUTROPHILS PERCENT AUTO 82 % (41-73); NRBC ABSOLUTE 0.00 K/mm3 (0.00-0.02); NRBC Auto 0.0 /100 WBC (0.0-0.2); Platelet Count 154 K/mm3 (150-400); RDW Coefficient Variation 19.1 % (11.7-14.2); RDW Standard Deviation 73.9 fL (35.1-46.3)
[2024-12-20 18:13] LABS: Alanine Aminotransfer (ALT/SGP 15.0 U/L (12-78); Albumin, Blood 2.4 g/dL (3.4-5.0); Albumin/Globulin Ratio 0.8 (0.8-1.8); Anion Gap 11.0 mmol/L (3-11); Aspartate Aminotrans (AST/SGOT 20.0 U/L (12-37); Bilirubin, Total 0.4 mg/dL (0.1-1.0); Blood Urea Nitrogen 30.0 mg/dL (8-24); CO2, Blood 21.0 mmol/L (21-32); Calcium, Blood 8.4 mg/dL (8.5-10.1); Chloride, Blood 113.0 mmol/L (98-108); Creatinine, Blood 1.63 mg/dL (0.60-1.20); Globulin, Blood 3.0 g/dL (2.2-4.0); Glucose, Blood 109.0 mg/dL (70-99); Magnesium, Blood 2.0 mg/dL (1.6-2.4); Phosphorus, Blood 1.7 mg/dL (2.5-4.9); Potassium, Blood 3.6 mmol/L (3.5-5.5); Sodium, Blood 141.0 mmol/L (136-145); Total Protein, Blood 5.4 g/dL (6.4-8.2)
--- NOTE | 2024-12-20 18:38 | NUR ---
PT DIRECT ADMIT TO FLOOR. AXO4. CHANGED INTO GOWN. ASSESMENT COMPLETED. HX COMPLETED. DR MATAMOROS TO BEDSIDE - ORDERS PLACED - TOLERATING CL DIET BUT DIFFICULT TO "GET ALOT DOWN" CHRONIC. PT WITH MEDIPORT- OK TO ACCESS PER DR MATAMOROS IF IV ATTEMPTS UNSUCCESFUL. PT DENYING PAIN. WILL BE PLACED ON NC HS PER HOME REGIMEN. PT CURRENTLY EATING CL DINNER. BED ALARM ON. PT USING CALL LIGHT APPROPRIATELY. AWAITING HOME REGIMEN PILLS. PT WITH HTN.
[2024-12-20] MEDS ORDERED: Labetalol HCL 5 MG/ML 4ML Injection (Single Dose) IV ONE (19:00)
[2024-12-20 19:05] VITALS: BP 119/55
--- NOTE | 2024-12-20 20:57 | NUR ---
TELE PT ON TELE. SOLUTION MAKE UP OPERATOR REPORTS REPORTS ACCELERATED JUNCTIIONAL AT 73, REA AUGUSTIN NP CALLED AND NOTIFIED HE REPORTS THAT HE WILL PLACE AND ORDER FOR AN EKG. A P MANAGER RONDA NOTIFIED.
[2024-12-20] MEDS ORDERED: NS IV SCH (21:00)
[2024-12-20] MEDS ORDERED: POTASSIUM PHOSPHATE DIBASIC IV SCH (21:00)
[2024-12-20] MEDS ORDERED: Albuterol 2.5 MG/3 ML VIAL INH PRN (21:05)
[2024-12-20] MEDS ORDERED: Ipratropium/Albuterol SulF 2.5-0.5MG/3 ML Amp INH SCH (21:05)
[2024-12-20] MEDS ORDERED: HydrALAZINE HCl 20 MG / ML 1ML Vial IV PRN (21:05)
[2024-12-20] MEDS ORDERED: Labetalol HCL 5 MG/ML 4ML Injection (Single Dose) IV PRN (21:05)
[2024-12-20] MEDS ORDERED: Tiotropium Bromide 2.5 MCG/ACT MIST INHAL (10 ACT/4 GM) INH SCH (21:05)
[2024-12-20] MEDS ORDERED: Formoterol/Mometasone MDI 5/100 mcg 13 GM INH SCH (21:21)
[2024-12-20] MEDS ORDERED: Oxymetazoline 0.05% Nasal Relief Spray 15mL BTL SCH (21:40)
[2024-12-20] MEDS ORDERED: Morphine Sulfate 4 MG/1 ML Injection IV PRN (21:40)
--- NOTE | 2024-12-20 23:00 | NUR ---
EKG EKG DONE PERFORMED. EKG SHOWED NSR AND NOT AN ACCELERATED JUNCTIONAL RHYTHM. DAMPENER RONDA SPOKE WITH REA AND NOTIFIED HIM OF EKG RESULTS. NO ADDITIONAL ORDERS WERE GIVEN.
[2024-12-21] VITALS (19 sets, daily range): BP systolic 118–192; BP diastolic 44–82
[2024-12-21] MEDS ORDERED: Insulin Human Lispro 100 Units/ML 3ML Syringe SC SCH
[2024-12-21 03:51] LABS: BASOPHILS ABSOLUTE AUTO 0.01 K/mm3 (0.00-0.23); BASOPHILS PERCENT AUTO 0 % (0-2); EOSINOPHILS ABSOLUTE AUTO 0.04 K/mm3 (0.00-0.68); EOSINOPHILS PERCENT AUTO 1 % (0-6); Hematocrit 24.1 % (37.0-53.0); Hemoglobin 7.7 g/dL (13.5-17.5); IMMATURE GRAN ABSOLUTE AUTO 0.02 K/mm3 (0.00-0.10); IMMATURE GRAN PERCENT AUTO 0 % (0-1); LYMPHOCYTES ABSOLUTE AUTO 1.36 K/mm3 (0.84-5.20); LYMPHOCYTES PERCENT AUTO 22 % (21-46); MONOCYTES ABSOLUTE AUTO 0.46 K/mm3 (0.16-1.47); MONOCYTES PERCENT AUTO 8 % (4-13); Mean Corpuscular HGB Conc 32.0 g/dL (31.5-36.5); Mean Corpuscular Volume 107 fL (80-100); NEUTROPHILS ABSOLUTE AUTO 4.22 K/mm3 (1.96-9.15); NEUTROPHILS PERCENT AUTO 69 % (41-73); NRBC ABSOLUTE 0.00 K/mm3 (0.00-0.02); NRBC Auto 0.0 /100 WBC (0.0-0.2); Platelet Count 106 K/mm3 (150-400); RDW Coefficient Variation 19.1 % (11.7-14.2); RDW Standard Deviation 75.7 fL (35.1-46.3)
[2024-12-21 04:21] LABS: Magnesium, Blood 1.8 mg/dL (1.6-2.4); Thyroid Stimulating Hormone 77.300 uIU/mL (0.360-4.800)
[2024-12-21 04:23] LABS: Anion Gap 8 mmol/L (3-11); Blood Urea Nitrogen 25 mg/dL (8-24); CO2, Blood 25 mmol/L (21-32); Calcium, Blood 7.4 mg/dL (8.5-10.1); Chloride, Blood 114 mmol/L (98-108); Creatinine, Blood 1.48 mg/dL (0.60-1.20); Glucose, Blood 159 mg/dL (70-99); Phosphorus, Blood 3.9 mg/dL (2.5-4.9); Potassium, Blood 3.6 mmol/L (3.5-5.5); Sodium, Blood 143 mmol/L (136-145)
--- NOTE | 2024-12-21 05:33 | NUR ---
SHIFT SUMMARY PT HAS RESTED MOST OF THE NIGHT. A/OX4, SITKA. SOME N/V THIS SHIFT MANAGED WITH ZOFRAN. PAIN MANAGED PER EMAR. BOWEL TONES HYPOACTIVE, PT PASSING GAS. IVF INFUSING. PLAN IS FOR PEG TUBE PLACEMENT TODAY. BLADDER SCAN PERFORMED THIS SHIFT PT HAD NOT VOIDED, BLADDER SCAN SHOWED 431, PT WAS ABLE TO SPONT VOID 150 MLS AFTER SCAN. ACCELERATED JUNCTIONAL ON TELE PER PRODUCE WRAPPER KIZZY. PROVIDER MADE AWARE AND EKG PERFORMED WHICH SHOWED NSR, PROVIDER MADE AWARE OF EKG RESULTS AND GAVE NO ADDITIONAL ORDERS WERE GIVEN. NO REPORTS OF CHEST PAIN. VITALS STABLE. BED IN LOWEST POSITION, CALL LIGHT WITHIN REACH.
[2024-12-21] MEDS ORDERED: Pantoprazole Sodium 40 MG Injection IV SCH (06:00)
[2024-12-21] MEDS ORDERED: FLU VACC TS2025(65UP)/MF59C/PF 45 MCG/0.5 ML SYRINGE IM SCH (09:00)
[2024-12-21] MEDS ORDERED: CeFAZolin Sodium 2,000 MG in NS 100 ML IV SCH (12:15)
[2024-12-21] MEDS ORDERED: Bupivacaine 0.5% W/EPI 1:200000 SDV 30 ML Vial ONE (12:28)
[2024-12-21] MEDS ORDERED: CeFAZolin Sodium 2,000 MG VIAL ONE (12:54)
[2024-12-21] MEDS ORDERED: Etomidate 2MG / ML 10ML Vial ONE (13:01)
--- NOTE | 2024-12-21 13:13 | NUR ---
12/21/24 1313 Lamar Anderson History, Chart, Medications and Allergies reviewed before start of procedure.BRITNEY BROWER PROVIDING ANESTHESIA IN OR ROOM 3
[2024-12-21] MEDS ORDERED: Albuterol 2.5 MG/3 ML VIAL INH PRN (13:30)
[2024-12-21] MEDS ORDERED: ePHEDrine Sulfate 50 MG/ML 1ML Injection IV PRN (13:30)
[2024-12-21] MEDS ORDERED: FentaNYL Citrate 50 MCG/ML 2 ML Injection IV PRN ×2 (13:30→13:35)
[2024-12-21] MEDS ORDERED: Metoclopramide HCl 5MG / ML 2ML Vial IV PRN (13:30)
[2024-12-21] MEDS ORDERED: HYDROmorphone HCl/Pf 1MG SYR IV PRN ×2 (13:30)
[2024-12-21] MEDS ORDERED: Ondansetron HCl 2 MG / ML 2ML Vial IV PRN (13:30)
[2024-12-21] MEDS ORDERED: Albuterol 2.5 MG/3 ML VIAL ONE (13:36)
[2024-12-21] MEDS ORDERED: Magnesium Hydroxide Conc 10 ML UDC PT PRN (14:00)
[2024-12-21] MEDS ORDERED: Docusate Sodium Liquid 100 MG UDC PT PRN (14:00)
--- NOTE | 2024-12-21 14:13 | NUR ---
PT TO ROOM 220 FROM PACU. SLEEPY, BUT AROUSABLE TO VERBAL STIMULI. POST OP VS STARTED AND STABLE. NEW PEG TUBE PRESENT LUQ ABDOMEN. PT DENIES PAIN. WILL CONTINUE TO MONITOR.
--- NOTE | 2024-12-21 15:54 | NUR ---
PEG TUBE FLUSHED WITH 150CC WATER SLOWLY PER ORDER. PT TOLERATED WITHOUT NAUSEA/EMESIS. WILL CONTINUE TO MONITOR.
--- NOTE | 2024-12-21 16:30 | NUR ---
Pt. is awake in bed when he welcomes my visit. Pt. verbalizes that he wasn't feeling well. With theraputic listening and a calm presence this link assembler was able to begin to estbalish some rapport. Considered some matters of cr and the community. Pt. displayed evidence of being encouraged by the company. Prayed for the Pt. Pt. verbalized gratitude for the spiritual care visit and welcomed this link assembler to return.
[2024-12-21] MEDS ORDERED: Ipratropium Bromide INH 0.02% 0.5 mg/2.5ML Vial INH SCH (17:50)
[2024-12-22 02:48] VITALS: BP 139/68
[2024-12-22 04:28] LABS: BASOPHILS ABSOLUTE AUTO 0.03 K/mm3 (0.00-0.23); BASOPHILS PERCENT AUTO 0 % (0-2); EOSINOPHILS ABSOLUTE AUTO 0.01 K/mm3 (0.00-0.68); EOSINOPHILS PERCENT AUTO 0 % (0-6); Hematocrit 26.1 % (37.0-53.0); Hemoglobin 8.2 g/dL (13.5-17.5); IMMATURE GRAN ABSOLUTE AUTO 0.17 K/mm3 (0.00-0.10); IMMATURE GRAN PERCENT AUTO 1 % (0-1); LYMPHOCYTES ABSOLUTE AUTO 0.87 K/mm3 (0.84-5.20); LYMPHOCYTES PERCENT AUTO 4 % (21-46); MONOCYTES ABSOLUTE AUTO 0.91 K/mm3 (0.16-1.47); MONOCYTES PERCENT AUTO 5 % (4-13); Mean Corpuscular HGB Conc 31.4 g/dL (31.5-36.5); Mean Corpuscular Volume 109 fL (80-100); NEUTROPHILS ABSOLUTE AUTO 17.94 K/mm3 (1.96-9.15); NEUTROPHILS PERCENT AUTO 90 % (41-73); NRBC ABSOLUTE 0.00 K/mm3 (0.00-0.02); NRBC Auto 0.0 /100 WBC (0.0-0.2); Platelet Count 136 K/mm3 (150-400); RDW Coefficient Variation 18.8 % (11.7-14.2); RDW Standard Deviation 76.2 fL (35.1-46.3)
[2024-12-22 04:58] LABS: Alanine Aminotransfer (ALT/SGP 9.0 U/L (12-78); Albumin, Blood 1.8 g/dL (3.4-5.0); Albumin/Globulin Ratio 0.7 (0.8-1.8); Anion Gap 7.0 mmol/L (3-11); Aspartate Aminotrans (AST/SGOT 14.0 U/L (12-37); Bilirubin, Total 0.3 mg/dL (0.1-1.0); Blood Urea Nitrogen 19.0 mg/dL (8-24); CO2, Blood 26.0 mmol/L (21-32); Calcium, Blood 7.7 mg/dL (8.5-10.1); Chloride, Blood 113.0 mmol/L (98-108); Creatinine, Blood 1.47 mg/dL (0.60-1.20); Globulin, Blood 2.6 g/dL (2.2-4.0); Glucose, Blood 110.0 mg/dL (70-99); Magnesium, Blood 1.6 mg/dL (1.6-2.4); Phosphorus, Blood 2.3 mg/dL (2.5-4.9); Potassium, Blood 3.5 mmol/L (3.5-5.5); Sodium, Blood 142.0 mmol/L (136-145); Total Protein, Blood 4.4 g/dL (6.4-8.2)
[2024-12-22 07:30] VITALS: BP 136/61
[2024-12-22] MEDS ORDERED: Potassium Phosphate Dibasic 20 MM in Dextrose 5% 500 ML IV STA (07:36)
[2024-12-22] MEDS ORDERED: Mag Sulfate 1 GM/D5% 100ML 100 ML IV STA (07:37)
--- NOTE | 2024-12-22 08:49 | NUR ---
SPOKE WITH MANAV-HOSPITALIST THIS AM AND DISCUSSED LABS- NO NEW ORDERS RECEIVED.
[2024-12-22] MEDS ORDERED: Cholecalciferol 1000 Unit Tablet (=25MCG) PO SCH (09:00)
--- NOTE | 2024-12-22 09:07 | NUR ---
RESIDUAL AT 0800 25ML. TUBE FLUSHED WITH 150ML H2O. MEDS GIVEN THROUGH PEG TUBE. PRESENT RATE FOR TF IS 20ML PER RESIDENTIAL APPLIANCE REPAIR TECHNICIAN.
--- NOTE | 2024-12-22 09:33 | NUR ---
tube feed rate increased to 40 ml hr for the next two hours. will continue to monitor.
[2024-12-22] MEDS ORDERED: FUROSEMIDE40 MG PO (10:07)
[2024-12-22] MEDS ORDERED: B-COMPLEX1 EACH PO (10:09)
--- NOTE | 2024-12-22 12:44 | NUR ---
TF ADVANCED BY 10ML/HR AT 1130. PT TOLERATING. RATE NOW AT 50/HR WITH GOAL RATE OF 70ML/HR.
--- NOTE | 2024-12-22 13:36 | NUR ---
1330 TF RATE INCREASED TO 60ML/HR. NO NAUSEA OR EMESIS. WILL CONTINUE TO MONITOR.
--- NOTE | 2024-12-22 14:24 | NUR ---
REDNESS NOTED TO SACRUM BLANCHABLE. OPTIFOAM SACRAL DRESSING PLACED. PT TURNED TO RIGHT. WILL CONTINUE TO MONITOR.
--- NOTE | 2024-12-22 15:02 | NUR ---
PT ENCOURAGED TO GET OOB AND INTO CHAIR. PT REFUSING. WILL REATTEMPT LATER.
--- NOTE | 2024-12-22 16:29 | NUR ---
TF INCREASED TO GOAL OF 70ML/HR. PT TOLERATING WELL. LAST RESIDUAL CHECK NIL BEFORE FLUSH PERFORMED AT 1400. WILL CONTINUE TO MONITOR.
[2024-12-22 17:10] VITALS: BP 127/72
--- NOTE | 2024-12-22 17:37 | NUR ---
SHIFT SUMMARY TF AT GOAL RATE OF 70ML HR. PT TOLERATING WELL. PT REFUSING TO GET UP AND SIT UP IN CHAIR AT THIS POINT. WILL CONTINUE TO ENCOURAGE ACTVITY. WILL CONTINUE TO MONITOR.
[2024-12-22 20:03] VITALS: BP 108/53
[2024-12-22 23:43] VITALS: BP 122/56
[2024-12-23 03:57] VITALS: BP 134/52
[2024-12-23 04:40] LABS: BASOPHILS ABSOLUTE AUTO 0.01 K/mm3 (0.00-0.23); BASOPHILS PERCENT AUTO 0 % (0-2); EOSINOPHILS ABSOLUTE AUTO 0.05 K/mm3 (0.00-0.68); EOSINOPHILS PERCENT AUTO 0 % (0-6); Hematocrit 24.3 % (37.0-53.0); Hemoglobin 7.6 g/dL (13.5-17.5); IMMATURE GRAN ABSOLUTE AUTO 0.08 K/mm3 (0.00-0.10); IMMATURE GRAN PERCENT AUTO 1 % (0-1); LYMPHOCYTES ABSOLUTE AUTO 0.72 K/mm3 (0.84-5.20); LYMPHOCYTES PERCENT AUTO 5 % (21-46); MONOCYTES ABSOLUTE AUTO 0.64 K/mm3 (0.16-1.47); MONOCYTES PERCENT AUTO 5 % (4-13); Mean Corpuscular HGB Conc 31.3 g/dL (31.5-36.5); Mean Corpuscular Volume 109 fL (80-100); NEUTROPHILS ABSOLUTE AUTO 12.30 K/mm3 (1.96-9.15); NEUTROPHILS PERCENT AUTO 89 % (41-73); NRBC ABSOLUTE 0.00 K/mm3 (0.00-0.02); NRBC Auto 0.0 /100 WBC (0.0-0.2); Platelet Count 124 K/mm3 (150-400); RDW Coefficient Variation 18.9 % (11.7-14.2); RDW Standard Deviation 75.7 fL (35.1-46.3)
[2024-12-23 05:01] LABS: Anion Gap 5.0 mmol/L (3-11); Blood Urea Nitrogen 25.0 mg/dL (8-24); CO2, Blood 26.0 mmol/L (21-32); Calcium, Blood 7.5 mg/dL (8.5-10.1); Chloride, Blood 111.0 mmol/L (98-108); Creatinine, Blood 1.52 mg/dL (0.60-1.20); Glucose, Blood 200.0 mg/dL (70-99); Magnesium, Blood 1.8 mg/dL (1.6-2.4); Phosphorus, Blood 2.6 mg/dL (2.5-4.9); Potassium, Blood 3.9 mmol/L (3.5-5.5); Sodium, Blood 138.0 mmol/L (136-145)
--- NOTE | 2024-12-23 05:50 | NUR ---
ACCORDION REPAIRER SUMMARY PT IS POD 1 FOR FEEDING TUBE PLACEMENT. TUBE FEEDING HAS BEEN AT GOAL RATE OF 70 ML/HR THROUGH THE NIGHT AND HAS TOLERATED WELL. RESIDUAL AMOUNT AROUND 5 ML FOR EACH CHECK. PT DENIES ABD PRESSURE OR BLOATING. CBG 200 WITH AM LABS SO INSULIN GIVEN PER ORDERED SLIDING SCALE. MEDICATED FOR PAIN X1 PER MAR. REPOSITIONED PT SEVERAL TIMES THROUGH THE NIGHT HOWEVER PT REFUSES TO BE PLACED ON HIS SIDE OR WITH PILLOW UNDER HIPS DUE TO DISCOMFORT. EDUCATED PT ON RISK OF PRESSURE SORES, HOWEVER PT STILL DECLINED SO REPOSITIONED ALLOWED. VSS, WCTM.
[2024-12-23 07:56] VITALS: BP 136/75
[2024-12-23 14:19] VITALS: BP 152/75
--- NOTE | 2024-12-23 15:21 | NUR ---
Pt. is awake in bed when he welcomes my visit. Pt. is pleasant and a life update was quickly facilitated. Pt. Verbalized that he felt he wasn't ready to discharge, as family at home had to prepare for his return. Considered other matters including the community and cr. Pt. displays evidence of being encouraged. Prayed for the Pt. Pt. verbalzied gratitude for the spiritual care visit.
[2024-12-23] MEDS ORDERED: Sodium Phosphate 25 MM in Dextrose 5% 500 ML IV STA (16:34)
--- NOTE | 2024-12-23 18:59 | NUR ---
BOLUS FEED PT GIVEN BOLUS FEED BETWEEN 1834 - 1854, TOLERATED 2 BOTTLES OF 1.2 JEVITY WITH 50 ML FLUSH BEFORE AND AFTER. DISCUSSED DEMONSTRATING BOLUS FEED TO HIS FAMILY TOMORRW.
--- NOTE | 2024-12-23 19:20 | NUR ---
SHIFT SUMMARY CHANGED FROM CONTINUOUS FEEDS TO BOLUS FEEDS. CONTINUOUS FEEDS STOPPED AROUND 1400, FIRST BOLUS FEED DONE JUST BEFORE SHIFT CHANGE(SEED BOLUS FEED NOTE). PT REPROTED FEELING NAUSEA AFTER ONLY GETTING 2 BOTTLES DESPITE HAVING 2/5 BEING RECOMMENDED FROM DIETARY. MEDICATED FOR NAUSEA AND ELEVATED HOB A BIT MORE. DISCUSSED WITH NOC RN. NO ACUTE EVENTS THIS SHIFT, CALL LIGHT IN REACH.
[2024-12-23 19:44] VITALS: BP 160/60
[2024-12-23] MEDS ORDERED: Montelukast Sodium 5 MG Chew PO SCH (21:00)
[2024-12-24] VITALS (9 sets, daily range): BP systolic 104–155; BP diastolic 47–74
--- NOTE | 2024-12-24 04:24 | NUR ---
SHIFT GARTH RUSHING WAS ALERT AND FULLY ORIENTED ON ASSESSMENT. PT PAIN WELL MANAGED THIS SHIFT. PT DENIES INCREASED SOB, OR CHEST PAIN. PT WAS NAUSEOUS FROM BOLUS FEEDING WHEN I ARRIVED TO SHIFT. PT FEELS THAT 2.5 CANS WAS TOO MUCH AT ONCE FOR HIM. DRESSING C/D/I. NO OTHER COMPLAINTS OR CHANGES THIS SHIFT.
[2024-12-24 04:44] LABS: BASOPHILS ABSOLUTE AUTO 0.02 K/mm3 (0.00-0.23); BASOPHILS PERCENT AUTO 0 % (0-2); EOSINOPHILS ABSOLUTE AUTO 0.03 K/mm3 (0.00-0.68); EOSINOPHILS PERCENT AUTO 0 % (0-6); Hematocrit 20.6 % (37.0-53.0); Hemoglobin 6.6 g/dL (13.5-17.5); IMMATURE GRAN ABSOLUTE AUTO 0.13 K/mm3 (0.00-0.10); IMMATURE GRAN PERCENT AUTO 1 % (0-1); LYMPHOCYTES ABSOLUTE AUTO 1.02 K/mm3 (0.84-5.20); LYMPHOCYTES PERCENT AUTO 7 % (21-46); MONOCYTES ABSOLUTE AUTO 0.69 K/mm3 (0.16-1.47); MONOCYTES PERCENT AUTO 5 % (4-13); Mean Corpuscular HGB Conc 32.0 g/dL (31.5-36.5); Mean Corpuscular Volume 108 fL (80-100); NEUTROPHILS ABSOLUTE AUTO 12.70 K/mm3 (1.96-9.15); NEUTROPHILS PERCENT AUTO 87 % (41-73); NRBC ABSOLUTE 0.00 K/mm3 (0.00-0.02); NRBC Auto 0.0 /100 WBC (0.0-0.2); Platelet Count 112 K/mm3 (150-400); RDW Coefficient Variation 18.6 % (11.7-14.2); RDW Standard Deviation 73.9 fL (35.1-46.3)
[2024-12-24 05:09] LABS: Anion Gap 6.0 mmol/L (3-11); Blood Urea Nitrogen 32.0 mg/dL (8-24); CO2, Blood 27.0 mmol/L (21-32); Calcium, Blood 7.9 mg/dL (8.5-10.1); Chloride, Blood 110.0 mmol/L (98-108); Creatinine, Blood 1.54 mg/dL (0.60-1.20); Glucose, Blood 144.0 mg/dL (70-99); Magnesium, Blood 1.9 mg/dL (1.6-2.4); Phosphorus, Blood 3.6 mg/dL (2.5-4.9); Potassium, Blood 4.8 mmol/L (3.5-5.5); Sodium, Blood 138.0 mmol/L (136-145)
[2024-12-24] MEDS ORDERED: Lidocaine 2% Viscous Soln 20 ML,Nystatin 100,000 Unit/ml Susp 20 ML,Mag Hydrox/Al Hydro... MT PRN (09:50)
[2024-12-24] MEDS ORDERED: Dextran/Hypromellose/Glycerin 15 DROP/ML BTL BOTHEYES SCH (09:51)
--- NOTE | 2024-12-24 10:38 | NUR ---
BOLUS FEED BREAKFAST PT TOLERATED 2 CANS THIS AM WITH NO DISCOMFORT WITH FLUSH BEFORE AND AFTER, TOTAL FEED TIME APPROX 30MINUTES
[2024-12-24] MEDS ORDERED: Insulin Human Lispro 100 Units/ML 3ML Syringe SC SCH (16:30)
[2024-12-24 16:46] LABS: Hematocrit 19.6 % (37.0-53.0); Hemoglobin 6.0 g/dL (13.5-17.5)
[2024-12-24 19:39] LABS: Hematocrit 18.6 % (37.0-53.0)
[2024-12-24 19:49] LABS: Hemoglobin 5.9 g/dL (13.5-17.5)
--- NOTE | 2024-12-24 20:16 | NUR ---
SHIFT SUMMARY PT DID WELL TODAY WITH HIS TUBE FEEDS, HE TOLERATED 2 CANS AT BREAKFAST, 2 AT LUNCH, AND 2.5 AT DINNER PUTTING HIM 0.5 CANS SHY OF HIS FULL DAYS INTAKE GOAL. UP TO CHAIR FOR A FEW HOURS THIS AFTERNOON, H&H CAME BACK LOW THIS EVENING WITH PLANS TO ADMINISTER BLOOD AND CHECH STOOL ON NEXT BM FOR A BLEED. PEG TUBE DRESSING C/D/I, HE REMAINS ON HIS BASELINE O2 AND NO OTHER ACTUE CONCERNS THIS SHIFT. CALL LIGHT IN REACH.
[2024-12-24] MEDS ORDERED: NS 250 ML IV PRN (20:30)
--- NOTE | 2024-12-24 21:17 | NUR ---
BLOOD ADMINISTRATION. VERIFIED BLOOD CONSENT, ID VERIFIERS, AND BLOOD WITH HOSE TUBING BACKERBALJIT Garcia BLOOD ADMIN STARTED AT 2057 AT 50ML/HOUR. AFTER 15 MINUTE DIRECT OBSERVATION OF PT RATE INCREASED TO 100ML/HR. LUNG SOUND DIMINISHED. DENIES CHEST PAIN PRESSURE OR SHORTNESS OF BREATH. CALL LIGHT IN REACH.
--- NOTE | 2024-12-24 23:00 | NUR ---
PROGRESS NOTE. PT LOST IV ACCESS DURING BLOOD ADMININSTRATION. DISCUSSED INFILTRATION WITH PHARMACIST VISHAL, NO MEDICATION PROTOCOL NEEDED. BRUISING NOTED ON LEFT FOREARM, NO SIGNIFICANT SWELLING INFILTRATE CAUGHT EARLY. ACCESSED MEDIPORT WITH ASSISTANCE FROM DIDI CAMPBELL RN. BLOOD RESTARTED VITALS STABLE.
[2024-12-25] VITALS (14 sets, daily range): BP systolic 106–139; BP diastolic 46–62
[2024-12-25 03:29] LABS: Hematocrit 20.1 % (37.0-53.0); Hemoglobin 6.4 g/dL (13.5-17.5)
--- NOTE | 2024-12-25 04:16 | NUR ---
CALL TO HOSPITALIST. NOTIFIED PROVIDER OF HGB OF 6.4 AFTER 1 UNIT OF PRBC. NEW ORDERS RECEIVED TO INFUSE 1 UINT PRBC AND REPEAT H&H 2 HOURS AFTER TRANSFUSION IS COMPLETE.
--- NOTE | 2024-12-25 08:37 | NUR ---
BLOOD ADMINISTRATION. VERIFIED BLOOD CONSENT, ID IDENTIFIERS AND BLOOD c ROAD DRIVERBALJIT HEWITT. PRBC BLOOD ADMIN STARTED AT 0528 SECOND ORDERED UNIT THIS SHIFT. STARTED AT 50ML/HR. 15 MINUTE DIRECT OBSERVATION COMPLETED, PT TOLERATING WELL, RATE INCREASED TO 100ML/HR. VSS, PT ASSYMPTOMATIC.
--- NOTE | 2024-12-25 08:40 | NUR ---
SHIFT SUMMARY NOC. PT POD 4 FOR PEG TUBE PLACEMENT. PEG TUBE REMAINS PATENT. PT NEEDED 2 UNITS OF PRBC THIS SHIFT. PT MEDICATED FOR PAIN WITH REPORTED RELIEF OF SX. PT LOST IV ACCESS THIS SHIFT AND ACCESSED MEDIPORT PER ORDER. PT VOIDING URINE AND USING ICE CHIPS FOR COMFORT. PT HAD X2 BREATHING TX WITH RT THIS SHIFT. PT MAKES NEEDS KNOWN, CALL LIGHT IN REACH.
[2024-12-25] MEDS ORDERED: Enoxaparin 40 MG/0.4 ML SYR SC SCH (09:00)
[2024-12-25] MEDS ORDERED: Multivitamins 1 Tab PO SCH (09:00)
[2024-12-25 11:20] LABS: BASOPHILS ABSOLUTE AUTO 0.00 K/mm3 (0.00-0.23); BASOPHILS PERCENT AUTO 0 % (0-2); EOSINOPHILS ABSOLUTE AUTO 0.00 K/mm3 (0.00-0.68); EOSINOPHILS PERCENT AUTO 0 % (0-6); Hematocrit 22.2 % (37.0-53.0); Hemoglobin 7.2 g/dL (13.5-17.5); IMMATURE GRAN ABSOLUTE AUTO 0.07 K/mm3 (0.00-0.10); IMMATURE GRAN PERCENT AUTO 1 % (0-1); LYMPHOCYTES ABSOLUTE AUTO 0.61 K/mm3 (0.84-5.20); LYMPHOCYTES PERCENT AUTO 7 % (21-46); MONOCYTES ABSOLUTE AUTO 0.62 K/mm3 (0.16-1.47); MONOCYTES PERCENT AUTO 7 % (4-13); Mean Corpuscular HGB Conc 32.4 g/dL (31.5-36.5); NEUTROPHILS ABSOLUTE AUTO 8.11 K/mm3 (1.96-9.15); NEUTROPHILS PERCENT AUTO 86 % (41-73); NRBC ABSOLUTE 0.00 K/mm3 (0.00-0.02); NRBC Auto 0.0 /100 WBC (0.0-0.2); Platelet Count 94 K/mm3 (150-400); RDW Coefficient Variation 22.3 % (11.7-14.2); RDW Standard Deviation 76.0 fL (35.1-46.3)
[2024-12-25 11:36] LABS: Anion Gap 10.0 mmol/L (3-11); Blood Urea Nitrogen 47.0 mg/dL (8-24); CO2, Blood 26.0 mmol/L (21-32); Calcium, Blood 7.7 mg/dL (8.5-10.1); Chloride, Blood 109.0 mmol/L (98-108); Creatinine, Blood 1.31 mg/dL (0.60-1.20); Glucose, Blood 201.0 mg/dL (70-99); Magnesium, Blood 1.7 mg/dL (1.6-2.4); Phosphorus, Blood 2.6 mg/dL (2.5-4.9); Potassium, Blood 5.1 mmol/L (3.5-5.5); Sodium, Blood 140.0 mmol/L (136-145)
[2024-12-25 11:40] LABS: Mean Corpuscular Volume 96 fL (80-100)
--- NOTE | 2024-12-25 17:40 | NUR ---
SHIFT SUMMARY POD 4 FOR PEG TUBE, PATIENT TRANSFUSED 2 UNITS OF BLOOD OVER NIGHT, HGB FROM 5.9 TO 7.2. TUBE FEEDS RESTARTED ON PUMP AND TOLERATING WELL WITH LITTLE RESIDUAL. MEDIPORT ACCESSED AND TKO AT THIS TIME. MEDS CRUSHED AND FLUSHED THROUGH PED TUBE. DENIES N/V. PAIN MANAGED WELL. VIRI HIGUERA AND NICKY FROM [facility] DELIVERED. AWAITING DISCHARGE PLAN HOME. CALL LIGHT IN REACH.
[2024-12-25 17:45] LABS: Hematocrit 20.3 % (37.0-53.0); Hemoglobin 6.6 g/dL (13.5-17.5)
[2024-12-26] VITALS (10 sets, daily range): BP systolic 134–169; BP diastolic 52–71
[2024-12-26 03:29] LABS: BASOPHILS ABSOLUTE AUTO 0.02 K/mm3 (0.00-0.23); BASOPHILS PERCENT AUTO 0 % (0-2); EOSINOPHILS ABSOLUTE AUTO 0.00 K/mm3 (0.00-0.68); EOSINOPHILS PERCENT AUTO 0 % (0-6); Hematocrit 23.0 % (37.0-53.0); Hemoglobin 7.6 g/dL (13.5-17.5); IMMATURE GRAN ABSOLUTE AUTO 0.11 K/mm3 (0.00-0.10); IMMATURE GRAN PERCENT AUTO 1 % (0-1); LYMPHOCYTES ABSOLUTE AUTO 0.82 K/mm3 (0.84-5.20); LYMPHOCYTES PERCENT AUTO 8 % (21-46); MONOCYTES ABSOLUTE AUTO 0.80 K/mm3 (0.16-1.47); MONOCYTES PERCENT AUTO 8 % (4-13); Mean Corpuscular HGB Conc 33.0 g/dL (31.5-36.5); Mean Corpuscular Volume 94 fL (80-100); NEUTROPHILS ABSOLUTE AUTO 8.56 K/mm3 (1.96-9.15); NEUTROPHILS PERCENT AUTO 83 % (41-73); NRBC ABSOLUTE 0.00 K/mm3 (0.00-0.02); NRBC Auto 0.0 /100 WBC (0.0-0.2); Platelet Count 113 K/mm3 (150-400); RDW Coefficient Variation 20.6 % (11.7-14.2); RDW Standard Deviation 69.0 fL (35.1-46.3)
[2024-12-26 03:48] LABS: Anion Gap 5.0 mmol/L (3-11); Blood Urea Nitrogen 60.0 mg/dL (8-24); CO2, Blood 31.0 mmol/L (21-32); Calcium, Blood 8.2 mg/dL (8.5-10.1); Chloride, Blood 109.0 mmol/L (98-108); Creatinine, Blood 1.2 mg/dL (0.60-1.20); Glucose, Blood 191.0 mg/dL (70-99); Phosphorus, Blood 3.0 mg/dL (2.5-4.9); Potassium, Blood 5.2 mmol/L (3.5-5.5); Sodium, Blood 140.0 mmol/L (136-145)
--- NOTE | 2024-12-26 05:32 | NUR ---
BRIM BLOCKER SUMMARY PT AAOX4 AND PLEASANT. TOLERATING SIPS OF WATER AND BROTH. HGB AT 1730 6.6. NOTIFIED UX RESEARCHER HOSPITALIST REA, RECIEVED ORDER FOR 1 UNIT PRBC'S. PT TOLERATED BLOOD TRANSFUSION WITH NO ISSUE. HGB POST TRANSFUSION 7.6. VITALS HAVE BEEN STABLE, PT REMAINS ON BASELINE 2L O2 VIA NC. PUREWICK EXTERNAL URINE CATHETER IN PLACE. PT HAS NOT HAD A BM TONIGHT SO UNABLE TO OBTAIN SPECIMEN. WCTM.
--- NOTE | 2024-12-26 08:17 | NUR ---
FIRST BOTTLE OF JEVITY GIVEN PER ORDER. PT TOLERATED WELL. FLUSHED WITH 30ML H20 AFTER ADMIN.
[2024-12-26] MEDS ORDERED: Protein Supplement 30 ML UD PT SCH (09:00)
--- NOTE | 2024-12-26 11:40 | NUR ---
PT GIVEN SECOND CONTAINER OF JEVITY 1.2 VIA SYRINGE. PT TOLERATING WELL. NO RESIDUAL AFTER PREVIOUS DOSE/WATER FLUSH.
--- NOTE | 2024-12-26 13:52 | NUR ---
GTUBE FLUSHED WITH 200CC H2O PER ORDER. PT TOLERATED WELL.
[2024-12-26 15:26] LABS: Hematocrit 23.9 % (37.0-53.0); Hemoglobin 8.1 g/dL (13.5-17.5)
--- NOTE | 2024-12-26 15:53 | NUR ---
PT GIVEN 16OO TUBE FEEDING. 300ML JEVITY 1.2 GIVEN OVER APPROX TEN MINUTES. MILD NAUSEA QUICKLY RESOLVED AFTER FEED. WILL CONTINUE TO MONITOR.
[2024-12-27] VITALS (12 sets, daily range): BP systolic 119–145; BP diastolic 50–68
--- NOTE | 2024-12-27 05:11 | NUR ---
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 FEEDING GIVEN OVER 10 MINUTES. PAIN CONTROLLED WITH TRAMADOL AND PT WAS ABLE TO SLEEP WELL TONIGHT. PT GIVEN FULL BED BATH AND ALL LINENS CHANGED. REMAINS ON BASELINE 3L O2 VIA NC, SATTING HIGH 90'S. VSS, WCTM.
[2024-12-27 05:53] LABS: BASOPHILS ABSOLUTE AUTO 0.01 K/mm3 (0.00-0.23); BASOPHILS PERCENT AUTO 0 % (0-2); EOSINOPHILS ABSOLUTE AUTO 0.02 K/mm3 (0.00-0.68); EOSINOPHILS PERCENT AUTO 0 % (0-6); Hematocrit 21.2 % (37.0-53.0); Hemoglobin 6.9 g/dL (13.5-17.5); IMMATURE GRAN ABSOLUTE AUTO 0.06 K/mm3 (0.00-0.10); IMMATURE GRAN PERCENT AUTO 1 % (0-1); LYMPHOCYTES ABSOLUTE AUTO 0.92 K/mm3 (0.84-5.20); LYMPHOCYTES PERCENT AUTO 10 % (21-46); MONOCYTES ABSOLUTE AUTO 0.96 K/mm3 (0.16-1.47); MONOCYTES PERCENT AUTO 10 % (4-13); Mean Corpuscular HGB Conc 32.5 g/dL (31.5-36.5); Mean Corpuscular Volume 96 fL (80-100); NEUTROPHILS ABSOLUTE AUTO 7.22 K/mm3 (1.96-9.15); NEUTROPHILS PERCENT AUTO 79 % (41-73); NRBC ABSOLUTE 0.00 K/mm3 (0.00-0.02); NRBC Auto 0.0 /100 WBC (0.0-0.2); Platelet Count 125 K/mm3 (150-400); RDW Coefficient Variation 20.0 % (11.7-14.2); RDW Standard Deviation 69.0 fL (35.1-46.3)
[2024-12-27 06:19] LABS: Anion Gap 8.0 mmol/L (3-11); Blood Urea Nitrogen 62.0 mg/dL (8-24); CO2, Blood 29.0 mmol/L (21-32); Calcium, Blood 8.5 mg/dL (8.5-10.1); Chloride, Blood 106.0 mmol/L (98-108); Creatinine, Blood 1.22 mg/dL (0.60-1.20); Glucose, Blood 158.0 mg/dL (70-99); Phosphorus, Blood 3.1 mg/dL (2.5-4.9); Potassium, Blood 5.3 mmol/L (3.5-5.5); Sodium, Blood 138.0 mmol/L (136-145)
[2024-12-27 13:42] LABS: Hematocrit 19.0 % (37.0-53.0); Hemoglobin 6.2 g/dL (13.5-17.5)
[2024-12-27] MEDS ORDERED: Docusate Sodium Liquid 100 MG UDC PT SCH (15:00)
--- NOTE | 2024-12-27 18:40 | NUR ---
SUMMARY ASSUMED CARE OF PT @0700. VSS. PEG TUBE PATENT. MEDIPORT PATENT WITH TKO INFUSING. ON BL 3LO2NC. PT WITH BASELINE MENTATION. IN SR PER TELE WITH SOME OCCASIONAL JUNCTIONAL RHYTHMS. PT HAS TOLERATED TUBE FEEDINGS AND FLUSHES T/O SHIFT BUT THIS IS A SLOW PROCESS PT WILL BEGIN TO COUGH WITH TOO FLAST OF A FLUSH. MALE PUREWICK REMAINS IN PLACE. HGB DROPPED TO 6.2 - 1 UPRBCS ORDERED - INFUSING NOW, PT TOLERATING WELL. PT TOLERATING CL DIET STILL. PROVIDER WANTS STOOL SAMPLE FOR OCCULT TESTING - BOWEL CARE MEDS CHANGED TO SCHEDULED, SUPPOSITORY ADMINISTERED. NO BM YET. PT CACHECTIC. STATING PAIN TOWARDS END OF SHIFT - MEDICATED PER EMAR. OTHERWISE, PT HAS BEEN IN BED ALL DAY, HAS NOT "HAD ENERGY" TO GET OOB TODAY. MEPILEX REMAINS TO SACRUM - PT BEING TURNED. USING CALL LIGHT APPROPRIATELY.
[2024-12-28 03:36] VITALS: BP 143/63
[2024-12-28 04:07] LABS: BASOPHILS ABSOLUTE AUTO 0.01 K/mm3 (0.00-0.23); BASOPHILS PERCENT AUTO 0 % (0-2); EOSINOPHILS ABSOLUTE AUTO 0.03 K/mm3 (0.00-0.68); EOSINOPHILS PERCENT AUTO 0 % (0-6); Hematocrit 23.3 % (37.0-53.0); Hemoglobin 7.7 g/dL (13.5-17.5); IMMATURE GRAN ABSOLUTE AUTO 0.11 K/mm3 (0.00-0.10); IMMATURE GRAN PERCENT AUTO 1 % (0-1); LYMPHOCYTES ABSOLUTE AUTO 0.94 K/mm3 (0.84-5.20); LYMPHOCYTES PERCENT AUTO 9 % (21-46); MONOCYTES ABSOLUTE AUTO 1.02 K/mm3 (0.16-1.47); MONOCYTES PERCENT AUTO 10 % (4-13); Mean Corpuscular HGB Conc 33.0 g/dL (31.5-36.5); Mean Corpuscular Volume 97 fL (80-100); NEUTROPHILS ABSOLUTE AUTO 8.08 K/mm3 (1.96-9.15); NEUTROPHILS PERCENT AUTO 79 % (41-73); NRBC ABSOLUTE 0.00 K/mm3 (0.00-0.02); NRBC Auto 0.0 /100 WBC (0.0-0.2); Platelet Count 139 K/mm3 (150-400); RDW Coefficient Variation 17.9 % (11.7-14.2); RDW Standard Deviation 62.4 fL (35.1-46.3)
--- NOTE | 2024-12-28 04:09 | NUR ---
SHIFT SUMMARY ADMITTED FOR DEHYDRATION. LIMITED CODE. BOLUS TUBE FEEDINGS THROUGH PEG TUBE ARE SCHEDULED. MEDIPORT IN RIGHT CHEST WALL IS ACCESSED. CLEAR LIQUID DIET. ACHS CBG'S - LOW SS. PAIN RX GIVEN THIS SHIFT. DR. GONZALEZ IS HIS OUTPT ONCOLOGIST. 1 UNIT OF PRBC'S FINISHED INFUSING AT BEGINNING OF THIS SHIFT. 3 LPM O2 VIA NC @ BASELINE. [place]. DR. MATAMOROS IS SURGICAL CONSULT. TELEMETRY: NSR @ 67 BPM. VERY LOOSE INCONTINENT BM'S THIS SHIFT, THEY DID NOT APPEAR DARK OR TARRY. HE WAS ABLE TO GET UP TO BEDSIDE COMMODE 2 ASSIST THIS SHIFT. ALL MEDS CRUSHED AND ADMINISTERED THROUGH PEG.
[2024-12-28 04:29] LABS: Alanine Aminotransfer (ALT/SGP 7.0 U/L (12-78); Albumin, Blood 1.7 g/dL (3.4-5.0); Albumin/Globulin Ratio 0.6 (0.8-1.8); Anion Gap 7.0 mmol/L (3-11); Aspartate Aminotrans (AST/SGOT 9.0 U/L (12-37); Bilirubin, Total 0.3 mg/dL (0.1-1.0); Blood Urea Nitrogen 66.0 mg/dL (8-24); CO2, Blood 30.0 mmol/L (21-32); Calcium, Blood 8.9 mg/dL (8.5-10.1); Chloride, Blood 105.0 mmol/L (98-108); Creatinine, Blood 1.27 mg/dL (0.60-1.20); Globulin, Blood 2.7 g/dL (2.2-4.0); Glucose, Blood 157.0 mg/dL (70-99); Potassium, Blood 5.6 mmol/L (3.5-5.5); Sodium, Blood 136.0 mmol/L (136-145); Total Protein, Blood 4.4 g/dL (6.4-8.2)
[2024-12-28 07:23] VITALS: BP 141/54
[2024-12-28] MEDS ORDERED: Albumin (Human) 25gm/100ml 100 ML IV SCH (10:30)
--- NOTE | 2024-12-28 10:40 | NUR ---
TELE BOX RETURNED TO PCU.
[2024-12-28 11:52] LABS: Stool Occult Bld Immuno 1 Negative (NEGATIVE)
[2024-12-28 14:41] VITALS: BP 130/50
[2024-12-28 19:33] VITALS: BP 135/54
--- NOTE | 2024-12-28 19:36 | NUR ---
SHIFT SUMMARY PT TOLERATED ALL HIS TUBE FEEDS TODAY WITH 300 ML EACH FEEDING, PAIN MANAGED PER EMAR, HE WAS UP TO THE CHAIR THIS AFTERNOON, ICE CHIPS FOR COMFORT. NO ACUTE EVENTS THIS SHIFT, CALL LIGHT IN REACH.
[2024-12-29] VITALS (7 sets, daily range): BP systolic 91–161; BP diastolic 38–72
[2024-12-29 01:04] LABS: pH Blood Venous 7.25 (7.34-7.37)
[2024-12-29 01:23] LABS: BASOPHILS ABSOLUTE AUTO 0.02 K/mm3 (0.00-0.23); BASOPHILS PERCENT AUTO 0 % (0-2); EOSINOPHILS ABSOLUTE AUTO 0.01 K/mm3 (0.00-0.68); EOSINOPHILS PERCENT AUTO 0 % (0-6); Hematocrit 21.6 % (37.0-53.0); Hemoglobin 7.0 g/dL (13.5-17.5); IMMATURE GRAN ABSOLUTE AUTO 0.18 K/mm3 (0.00-0.10); IMMATURE GRAN PERCENT AUTO 1 % (0-1); LYMPHOCYTES ABSOLUTE AUTO 1.24 K/mm3 (0.84-5.20); LYMPHOCYTES PERCENT AUTO 8 % (21-46); MONOCYTES ABSOLUTE AUTO 0.89 K/mm3 (0.16-1.47); MONOCYTES PERCENT AUTO 6 % (4-13); Mean Corpuscular HGB Conc 32.4 g/dL (31.5-36.5); Mean Corpuscular Volume 99 fL (80-100); NEUTROPHILS ABSOLUTE AUTO 12.95 K/mm3 (1.96-9.15); NEUTROPHILS PERCENT AUTO 85 % (41-73); NRBC ABSOLUTE 0.00 K/mm3 (0.00-0.02); NRBC Auto 0.0 /100 WBC (0.0-0.2); Platelet Count 173 K/mm3 (150-400); RDW Coefficient Variation 17.3 % (11.7-14.2); RDW Standard Deviation 61.2 fL (35.1-46.3)
[2024-12-29 01:37] LABS: Alanine Aminotransfer (ALT/SGP 9.0 U/L (12-78); Albumin, Blood 2.6 g/dL (3.4-5.0); Albumin/Globulin Ratio 1.0 (0.8-1.8); Anion Gap 6.0 mmol/L (3-11); Aspartate Aminotrans (AST/SGOT 8.0 U/L (12-37); Bilirubin, Total 0.3 mg/dL (0.1-1.0); Blood Urea Nitrogen 72.0 mg/dL (8-24); CO2, Blood 31.0 mmol/L (21-32); Calcium, Blood 9.0 mg/dL (8.5-10.1); Chloride, Blood 105.0 mmol/L (98-108); Creatinine, Blood 1.32 mg/dL (0.60-1.20); Globulin, Blood 2.7 g/dL (2.2-4.0); Glucose, Blood 234.0 mg/dL (70-99); Potassium, Blood 5.3 mmol/L (3.5-5.5); Sodium, Blood 137.0 mmol/L (136-145); Total Protein, Blood 5.3 g/dL (6.4-8.2)
[2024-12-29] MEDS ORDERED: Piperacillin/Tazobactam Sod 4.5 GM in NS 100 ML IV SCH (01:46)
--- NOTE | 2024-12-29 02:00 | NUR ---
ACUTE SOB EVENT/NEW ORDERS. PT CALLING OUT FOR "HELP", AT APPROX 0020. PT VISIBLY SOB AND TRIPODING. RT CALLED TO BEDSIDE, PT O2 SATS 72% ON 3L N/C, PT PLACED ON NRB 15L AND SATS AT 77%. PT RECEIVED NEBULIZER TREATMENT AND SATS CAME UP TO 90%. PT RECEIVED ONE TIME DOSE OF LASIX PER HOSPITALIST ORDER. STAT CHEST XRAY ORDERED AND PERFORMED. PT PLACED ON BIPAP AND CONTINUOUS BIOX. LABS ORDERED. NOTHING PER PEG TUBE UNTIL FURTHER NOTICE AT THIS TIME PER HOSPITALIST.
--- NOTE | 2024-12-29 06:30 | NUR ---
SHIFT SUMMARY NOC. PT TOLERATED BIPAP UNTIL APPROXIMATELY 0430 AM, PT REQUESTED IT BE REMOVED STATING IT IS "TORTURE". PT TOLERATING 3 N/C WITH SATS ABOVE 92%, CONT BIOX MONITORING IN PLACE. PT'S SOB IMPROVED AFTER BIPAP USE. PT COUGHING UP THICK SPUTUM, SUCTION AT BEDSIDE. PT CALLING OUT AND NOT USING CALL LIGHT INTERMITTENTLY THIS SHIFT. DENIES N/V VOMITING OR PAIN THIS SHIFT.
--- NOTE | 2024-12-29 14:33 | NUR ---
Spiritual Care Visit. This furniture maker was informed that the Pt. will be going home on Hospice. Pt. displayed evidence of sad and sullen disposition. Facilitated an update of the Pts. plans and considered matters of his family and hopspice. Pastoral care is given as is prayer. Though tht Pt. remained somewhat sullen, the Pt. verbalized gratitude for the spiritual care visits and shook this furniture maker's hand before I left.
--- NOTE | 2024-12-29 14:56 | NUR ---
PEG ASPIRATION AFTER ADMINISTERING THE PATIENTS ULTRAM AND LIQUACELL, PT REPORTED FEELING NAUSEOUS, EMISIS BAG PROVIDED, ASPIRATED 120ML OF FLUID FROM HIS PEG TUBE AND ADMINISTERED ZOFRAN. FLUSHED TUBE WITH 30ML H2O. PT REPORTS FEELING BETTER.
--- NOTE | 2024-12-29 19:57 | NUR ---
SHIFT SUMMARY S/P PEG TUBE PLACEMENT, A/OX4, VSS, TOLERATING SMALL AMOUNTS PER PEG TUBE, HAD TO REMOVE SOME GASTRIC CONTENTS AFTER AM MED PASS (SEE NOTES), HER REPORTED FEELING BETTER THIS AM AT SHIFT CHANGE BUT STARTED FEELING WORSE T/O THE DAY. TUBE FEEDINGS HELD TODAY BUT MEDS GIVEN PER TUBE/IV. MEDICATED PER PAIN, R/T NOTIFIED FOR SOB AND PATEINT REQUESTED BREATHIN TREATMENT. PEG TUBE DRESSING CHANGED THIS SHIFT AND SURGEON NOTIFIED OF GASTRIC CONTENT LEAK, BARRIER CREAM APPLIED PER SURGERY ON DRESSING CHANGE. PLAN TO DC HOME TOMORROW ON HOSPICE.
[2024-12-30 04:49] VITALS: BP 79/34
[2024-12-30 04:54] VITALS: BP 101/63
--- NOTE | 2024-12-30 05:09 | NUR ---
UPDATE PT HYPOTENSIVE AND UNRESPONSIVE UPON ROUNDING. CHARGE AND RN IN ROOM AT THIS TIME. CLIENT RENEWAL SPECIALIST CALLED, CODE STATUS REVIEWED. HOSPITALIST NOTIFIED. CHARGE CONTACTED DAUGHTER JANY TO DISCUSS PT STATUS AND FAMILY'S WISHES, WHICH IS TO BE PLACED ON COMFORT CARE NOW AND NO INTUBATION. HOSPITALIST THEN NOTIFIED OF FAMILY'S WISHES, NEW ORDERS OBTAINED FOR PRN PAIN MANAGEMENT AND COMFORT CARE STATUS. WILL IMPLEMENT DIRECTED. AWAITING FAMILY ARRIVAL.
--- NOTE | 2024-12-30 05:11 | NUR ---
0500- CALLED DAUGHTER JANY AND UPDATED HER ABOUT PT STATUS CHANGE. DAUGHTER CALLED HER MOTHER AND THEY BOTH AGREED TO NOT HAVE PT INTUBATED BUT TOPURSUE HOSPICE/ COMFORT CARE. DR CALABRESE WAS CALLED AND INFORMED.
[2024-12-30] MEDS ORDERED: FentaNYL Citrate 50 MCG/ML 2 ML Injection IV PRN (05:25)
--- NOTE | 2024-12-30 06:12 | NUR ---
UPDATE VISITOR AT BEDSIDE WITH PT.
--- NOTE | 2024-12-30 08:06 | NUR ---
MD SOTO CONTACTED PATIENT MADE COMFORT CARE OVERNIGHT. DISCUSSED ORDERS FOR COMFORT CARE ORDER SET AND SCHEDULED MORNING MEDS. RCVD ORDER TO HOLD MORNING MEDS. MD TO ASSESS PATIENT AND PLACE ORDERS FOR COMFORT CARE. PRIMARY RN TYLER NOTIFIED.
[2024-12-30] MEDS ORDERED: Atropine Sulfate 1% Opth Soln 2ML BTL SL PRN (08:35)
[2024-12-30] MEDS ORDERED: LORazepam 2 MG/ML 1ML Injection IV PRN (08:40)
[2024-12-30] MEDS ORDERED: Morphine Sulfate 20 MG/1ML 1 ML Oral Syringe SL PRN (08:40)
--- NOTE | 2024-12-30 08:51 | NUR ---
"Spiritual Care | Comfort Care - Physician request Pt. is on comfort care and displays evidence of transitioning. Spouse and two grandsons are present and welcome my visit. Facilitated a family update. One grandson is from [place], the other [place]. This chapalain shared with spouse the interaction I had with the Pt. yesterday. Scripture isd read, prayer is given. Addressed family concerns about EOL decisions as the Pt. will be interred in [place]. The family has chosen [facility] in [place] for their home. This hadoop admin will remain available to the family and staff."
--- NOTE | 2024-12-30 09:50 | NUR ---
"Spiritual Care | EOL | JIMY'S Pt. had passed when this operator electronic warfare joined the family at bedside. Spouse is grieving appropriately. Gathered at bedside for a final prayer and blessing. Family was given EOL instructions and then verbalized their gratitude for the spiritual care visit. Confirmed fuenral home with Charge nurse."
--- NOTE | 2024-12-30 11:10 | NUR ---
FINAL DISCHARGE SUMMARY SEE PREVIOUS NOTES. JANE FROM [facility] HOME TO ESCORT PT FROM HOSPITAL. FACE SHEET & PT R HEARING AID SENT. WISE CATH REMOVED, IV DC'D. PT BELONGINGS w/FAMILY MEMBERS. ICE PACK PLACED OVER EYES. DC AT 1057.
== END 2024-12-30 10:57 | DRG 374 ==
LOC: SURS 16:33
PROVIDERS: Internal Medicine; Student in an Organized Health Care Education/Training Program; ADMIT Surgery
PROC: 0DH63UZ Insertion of Feeding Device into Stomach, Percutaneous Approach (ICD-10-PCS; principal; 2024-12-21 13:00)
PROC: 30233N1 Transfusion of Nonautologous Red Blood Cells into Peripheral Vein, Percutaneous Approach (ICD-10-PCS; 2024-12-24)
PROC: 30233J1 Transfusion of Nonautologous Serum Albumin into Peripheral Vein, Percutaneous Approach (ICD-10-PCS; 2024-12-28)
PROC: 3E03329 Introduction of Other Anti-infective into Peripheral Vein, Percutaneous Approach (ICD-10-PCS; 2024-12-29)
PROC: 5A09357 Assistance with Respiratory Ventilation, Less than 24 Consecutive Hours, Continuous Positive Airway Pressure (ICD-10-PCS; 2024-12-29)
DX: C16.0 Malignant neoplasm of cardia (principal); E43 Unspecified severe protein-calorie malnutrition; I13.0 Hypertensive heart and chronic kidney disease with heart failure and stage 1 through stage 4 chronic kidney disease, or unspecified chronic kidney disease; I50.32 Chronic diastolic (congestive) heart failure; N17.9 Acute kidney failure, unspecified; J96.11 Chronic respiratory failure with hypoxia; Z68.1 Body mass index [BMI] 19.9 or less, adult; R64 Cachexia; C34.11 Malignant neoplasm of upper lobe, right bronchus or lung; E86.0 Dehydration; I25.10 Atherosclerotic heart disease of native coronary artery without angina pectoris; Z66 Do not resuscitate; Z51.5 Encounter for palliative care; Z99.81 Dependence on supplemental oxygen; J44.9 Chronic obstructive pulmonary disease, unspecified; K21.9 Gastro-esophageal reflux disease without esophagitis; E78.00 Pure hypercholesterolemia, unspecified; N18.30 Chronic kidney disease, stage 3 unspecified; R54 Age-related physical debility; I95.89 Other hypotension; E03.9 Hypothyroidism, unspecified; E11.22 Type 2 diabetes mellitus with diabetic chronic kidney disease; D63.1 Anemia in chronic kidney disease; E83.39 Other disorders of phosphorus metabolism; N40.0 Benign prostatic hyperplasia without lower urinary tract symptoms; I25.2 Old myocardial infarction; D63.0 Anemia in neoplastic disease; F17.210 Nicotine dependence, cigarettes, uncomplicated; Z98.890 Other specified postprocedural states; Z82.49 Family history of ischemic heart disease and other diseases of the circulatory system; Z83.3 Family history of diabetes mellitus; Z80.1 Family history of malignant neoplasm of trachea, bronchus and lung; Z83.6 Family history of other diseases of the respiratory system; Z96.22 Myringotomy tube(s) status; Z79.51 Long term (current) use of inhaled steroids; Z79.52 Long term (current) use of systemic steroids; Z79.84 Long term (current) use of oral hypoglycemic drugs; Z79.890 Hormone replacement therapy; Z79.899 Other long term (current) drug therapy
CPT/HCPCS: 36415; 36430; 71045; 74177; 80048; 80053; 82274; 82330; 82803; 82947; 83735; 83880; 84100; 84439; 84443; 84481; 85014; 85018; 85025; 86850; 86900; 86901; 86923; 93005; 93010; 94640; 94660; 94664; 94760; 94762; A9270; J0690; J1642; J1938; J2270; J2405; J2470; J2543; J2704; J3411; J3475; J7040; J7050; J7060; J7121; J7512; P9016; P9047; Q9967